=== PATIENT | female | born 2005 | race Caucasian/White ===

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

== ENCOUNTER 2024-10-16 09:35 | Outpatient (CLI) | payer BC, SELFPAY ==
--- NOTE | ~2024-10-16 | MR_ITS ---
MRI of the brain Clinical History: Headache Technique: Axial and sagittal T1-weighted images were acquired. These were followed by axial T2-weigh ana rosa, diffusion weighted, gradient, and FLAIR images. Following intravenous administration of 20 cc Mu ltiHance gadolinium, T1-weighted fat-sat imaging was performed in the axial and coronal planes. Findings: There is no abnormal signal in the brain parenchyma. No acute infarct, internal hemorrhage or mass lesion identified. Ventricles and subarachnoid spaces are unremarkable. Orbits are unremarkable. Paranasal sinuses and m astoid air cells are clear. Major intracranial flow voids are intact. Sagittal midline structures are intact. No abnormal postcontrast enhancement identified. IMPRESSION: Normal exam. Reviewed, dictated and finalized at location . NISTRATIVE SERVICES COORDINATOR IMPRESSION: Normal exam.
== END 2024-10-16 09:36 | disposition home or self-care (01) ==
PROVIDERS: PCP Family Medicine; Visit Provider Student in an Organized Health Care Education/Training Program
DX: G43.909 Migraine, unspecified, not intractable, without status migrainosus (principal)
CPT/HCPCS: 70553; A9577

== ENCOUNTER 2024-11-17 08:10 | Outpatient (CLI) | payer BC, SELFPAY ==
--- NOTE | ~2024-11-17 | NM_ITS ---
EXAM: NM gastric emptying study DATE: 11/17/2024 12:55 INDICATION: Nausea and vomiting TECHNIQUE: A gastric emptying study was performed using the methodology of Laverne MANDEL, et al. J Nucl Med 2007; 48:568-572. The patient was given a meal consisting of 2 scrambled eggs labeled with 1.029 mCi Tc-99m sulfur colloid, 2 slices of toast, two packages of jam, and approximately 120 mL of water . Simultaneous anterior and posterior 1-min images of the abdomen were obtained with the patient supi ne at multiple time points over a total period of 4 hours. The geometric mean of anterior and posteri or views was determined, and the percentage retention was calculated for each time point. COMPARISON: None. FINDINGS: Gastric retention of the radiotracer-labeled meal was 51%, 24%, and 5% at the 1-hour, 2-hour, and 4-h our time points, respectively. With this technique, apparent rapid gastric emptying is suggested by < 30% gastric retention at 1 hour. Delayed gastric emptying is defined by gastric retention of >90% at 1 hour, >60% retention at 2 hours, or >10% retention at 4 hours. IMPRESSION: 1. Normal gastric emptying. Reviewed, dictated and finalized at location B. EAD WORKER IMPRESSION: 1. Normal gastric emptying.
--- OUTSIDE RECORDS SUMMARY | 2024-11-24 14:33 | XMS_ITS | Encounter Summary ---
Author Organization [facility] Address [address] [place] [address] Care Team Providers Care Rn Progressive Care Unit Name Role Phone Mathew Garcia MD Primary Care Provider [phone] Vianey Cabral MD Unavailable [phone] Reason for Visit * Reason Onset Date Comments Update 09/26/2019 Encounter Details Date Type Department Care Team (Late st Contact Info) Description 09/26/2019 Telephone [facility] - Neurology [address] [place] [id number] Jinny May Update Social History Tobacco Use Types Packs/Day Years Used Date Smoking Tobacco: Passive Smo ke Exposure - Never Smoker Smokeless Tobacco: Never Alcohol Use Standard Drinks/Week Comments Not Asked 0 (1 standard drink = 0.6 oz pur e alcohol) AUDIT-C Answer Date Recorded Frequency of Alcohol Consumption Never 12/06/2020 Average Number of Drinks Not on file 021 Frequency of Binge Drinking Not on file 11/26 Sex and Gender Information Value Date Recorded Sex Assigned at Female 06/14/2021 11:35 AM CDT Gender Identity Female 06/14/2021 11:35 AM CDT Sexual Orientation Not on file COVID-19 Exposure Response Date Recorded In the last month, have you been in contact with someone who was confirmed or suspected to have Coronavirus / COVID-19? Unable to assess 12/06/2020 1:59 PM CAMPUS RECRUITING INTERN documented as of this encounter Functional Status Functional Status Response Date of Assess ment Is person deaf or have serious hearing difficult y? No 10/06/2016 Is person blind or have serious difficulty seein g? No 10/06/2016 Does person have serious dif ficulty walking/climbing stairs? No 10/06/2016 Does person have difficulty dressing/bathing? No 10/06/2016 Does person have difficulty doing errands alone? No 10/06/2016 Cognitive Status Response Date of Assessm ent Does person have difficulty concentrating/remembering/making decisions? No 10/06/2016 documented as of this encounter Miscellaneous Notes * Telephone Encounter - Anayeli Poole RN - 10/07/2019 11:51 AM CST Both parents called to confirm upcoming appt for 10/16/19, closing encounter. US RECRUITING INTERN * Telephone Encounter - Anayeli Poole RN - 10/07/2019 11:15 AM CST Per office coordinators, multiple attempts made to confirm new patient appt with mother, no answer and no return calls. Of note, mother request return call to father Eze for scheduling as she has trouble answering her phone during the day. RN has also called mother at [phone] and father, Eze, at [phone] to confirm new patient appt for 10/16/19 at 1100, advised that if call not returned to confirm this appt will need to remove for the visit. US RECRUITING INTERN * Telephone Encounter - Anayeli Poole RN - 10/03/2019 11:51 AM CST Mother calling to follow up from ED visit 10/01/19. States this is her 16th day of migraine, been to ED twice for this. States received IV cocktail, but then this is temporary, missed school all week and barely able to move these are so debilitating. States she does looks a bit better, but still incapacitated, also c/o of numbness in arms and face,CT scan normal. Advised there is not a lot to be advised over the phone at this time and will need to call PCP for recs. Appt not until 12/10/2019, but will look into something sooner and get back for appt date and time, mother agreed. Mother telephone [phone] or Father (Eze) at [phone]. Of note, sooner appt available with Dr. Álvarez on 10/16/19, will hold and forward to DAJA to set this up. US RECRUITING INTERN * Telephone Encounter - Jinny May - 09/26/2019 3:30 PM CDT Received records from Dr.Jamil Garcia's office for Namita to be seen for Migraines . Called family and lvm to call and schedule a new patient appointment. documented in this encounter Plan of Treatment Not on file documented as of this encounter Visit Diagnoses Not on filedocumented in this encounter Care Teams Rn Progressive Care Unit Relationship Specialty Start Date End Date Mathew Garcia MD [address] [place] [address] PCP - General Pediatrics 02/29/16 05/06/24 Vianey Cabral MD [facility] [place] [address] Pediatric Gastroenterology 12/06/20 documented as of this encounter
--- OUTSIDE RECORDS SUMMARY | 2024-11-24 14:33 | XMS_ITS | Encounter Summary ---
Author Organization [facility] Address [address] [facility] [place] [address] Care Team Providers Care Faculty Criminal Justice Name Role Phone Mathew Garcia MD Primary Care Provider [phone] Reason for Visit * Reason Comments Headache continues with daily headaches Encounter Details Date Type Department Care Team (Latest Contact Info) Description 10/17/2016 2:45 PM SCAFFOLD WORKER - 10/17/2016 11:59 PM SCAFFOLD WORKER Hospital Encounter [facility] Pediatric[facility] - Neurology [address] [facility] [place] [address] Nico Méndez MD [address] [place] [id number] [place] [address] Discharge Disposition: Home or Self Care Social History Tobacco Use Types Packs/Day Years Used Date Smoking Tobacco: Never Alcohol Use Standard Drinks/Week Comments Not Asked 0 (1 standard drink = 0.6 oz pur e alcohol) Sex and Gender Information Value Date Recorded Sex Assigned at Female 06/14/2021 11:35 AM CDT Gender Identity Female 06/14/2021 11:35 AM CDT Sexual Orientation Not on file documented as of this encounter Last Filed Vital Signs Vital Sign Reading Time Taken Comments Blood Pressure 122/70 10/17/2016 3:02 PM SCAFFOLD WORKER Pulse - - Temperature - - Respiratory Rate - - Oxygen Saturation - - Inhaled Oxygen Concentration - - Weight 84.7 kg (186 lb 11.7 oz) 10/17/2016 3:02 PM SCAFFOLD WORKER Height 168.2 cm (5' 6.22 ) 10/17/2016 3:02 PM CS T Body Mass Index 29.94 10/17/2016 3:02 PM SCAFFOLD WORKER Body Mass Index Percentile 97.29% 10/17/2016 3:0 2 PM SCAFFOLD WORKER Growth Chart: [facility] (Girls, 2- 20 Years) documented in this encounter Functional Status Functional Status Response [...] No 10/06/2016 documented as of this encounter Medications at Time of Discharge Medication Sig Dispensed Refills Start Date End Date melatonin 5 MG tablet Take 10 mg by mouth at bedtime Multiple Vitamin (MULTI VITAMIN DAILY PO) acetaminophen (TYLENOL) 160 MG/5ML solution Take 20.3 mL by mouth every 4 hours as needed for Fever or Pain 473 mL 10/06/2016 10/16/2019 HYDROcodone-acetaminoph en 7.5-325 MG/15ML solution Take 5 mL by mouth every 4 hours as needed for Pain 473 mL 10/06/2016 09/24/2017 ibuprofen (ADVIL; MOTRIN) 100 MG/5ML suspension Take 15 mL by mouth every 6 hours as needed for Pain or Fever May start using ibuprofen (ADVIL/MOTRIN) 3 days after surgery. 473 mL 10/09/2016 10/01/2019 documented as of this encounter Progress Notes * Nico Méndez MD - 10/17/2016 11:59 PM CST [address] [address] DEPARTMENT OF NEUROLOGY NAME: NAMITA REYES DOB: 2005 UNIT #: [id number] [facility] #: [id number] DATE SEEN: 10/17/2016 Dr. Garcia: I saw Namita Reyes in followup in Neurology Clinic at the [facility] on October 17. As you will recall, she is a 13-1/4-year-old girl with a history of migraine headache without aura and the development of chronic daily headache. She has recently had a tonsillectomy and adenoidectomy and she had a nasopharyngeal cyst as well, which was removed about 11-12 days before our visit. She had some pharyngeal pain and scarring that is noted over the area of the previous cyst. Her blood pressurewas marginal at 122/70 at our visit. She continues to complain of daily bitemporal pain of 6 or 7 on a scale of intensity. It is described as pounding in quality. The patient was taking topiramate 50mg at bedtime in March after we prescribed it. She took it for about a month and discontinued it because she felt it did not work. The patient has had no recent illnesses since her surgery. She would prefer not to use a tricyclic agent because of her concerns about obesity. She is ready at the 99th percentile for weight and at 92nd percentile for height with a BMI approaching the 98th percentile. PHYSICAL EXAMINATION: Her exam revealed fluent topical speech and she did not appear distressed. 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 Her eye movements were complete. Facies were symmetrical. Tongue was midline and she had normal hearing bilaterally. General exam of the skull and neck demonstrated some slight bitemporalis muscle tenderness, but a supple neck. She had a normal cardiac exam and no bruits in the neck. Her motor exam reveals normal power and tone without drift. Deep tendon reflexes were equal throughout and her gait and tandem walk were normal. 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 RECOMMENDATIONS: I have suggested firstly that we try some simple xtyr-[id number] basic measures in addition to some lifestyle changes. Oral magnesium and alpha lipoic acid may be reasonable non medicinal alternative therapies firstly. If there is no impact with these agents, then I believe Neurontin might be a reasonable medication (i.e. gabapentin). I suggested a return visit in about 4 months' time and the family will contact us if the above simple measures are not effective. Questions can be directed to meat the Department of Neurology, [facility]. Dictated By: NICO MÉNDEZ MD JENNI/Glenis JOB ID: [id number] cc: Mathew Garcia M.D. DEPARTMENT OF NEUROLOGY FOLD WORKER * Nico Méndez MD - 10/17/2016 3:45 PM CST Images from the original note were not included. See dictated note to PD. Impression [facility] unresponsive to topiramate. Will try Mg and alpha lipoic acid before a trial of neurontin as pt has weight issues and wants to keep it off. F/u 4 months. jenni FOLD WORKER documented in this encounter Plan of Treatment Not on file documented as of this encounter Visit Diagnoses Diagnosis Chronic daily headache Headache Intractable migraine without aura and without status migrainosus Migraine without aura, with intractable migraine, so stated, without mention of status migrainosus documented in this encounter Care Teams Faculty Criminal Justice Relationship Specialty Start Date End Date Mathew Garcia MD [address] [place] [id number] PCP - General Pediatrics 02/29/16 05/06/24 documented as of this encounter
--- OUTSIDE RECORDS SUMMARY | 2024-11-24 14:33 | XMS_ITS | Encounter Summary ---
Author Organization [facility] Address [address] [place] [address] Care Team Providers Care Dietary Cook Name Role Phone Mathew Garcia MD Primary Care Provider [phone] Reason for Visit * Reason Onset Date Comments Results 10/10/2016 Encounter Details Date Type Department Care Team (Late st Contact Info) Description 10/10/2016 Telephone [facility] Pediatric[facility] - ENT [address] [place] [address] [place] [address] [facility] [address] [place] [address] Results Social History Tobacco Use Types Packs/Day Years Used Date Smoking Tobacco: Never Alcohol Use Standard Drinks/Week Comments Not Asked 0 (1 standard drink = 0.6 oz pur e alcohol) Sex and Gender Information Value Date Recorded Sex Assigned at Female 06/14/2021 11:35 AM CDT Gender Identity Female 06/14/2021 11:35 AM CDT Sexual Orientation Not on file documented as of this encounter Functional Status [...] encounter Miscellaneous Notes * Telephone Encounter - Orion Domingo MD - 10/10/2016 9:18 PM CST Pathology report is c/w an inclusion cyst of the nasopharynx. Namita has been having post-op pain but otherwise doing well. She will follow up prn continuing concerns. ING PANTOGRAPH MACHINE OPERATOR documented in this encounter Plan of Treatment Not on file documented as of this encounter Visit Diagnoses Not on filedocumented in this encounter Care Teams Dietary Cook Relationship Specialty Start Date End Date Mathew Garcia MD [address] [place] [address] PCP - General Pediatrics 02/29/16 05/06/24 documented as of this encounter
--- OUTSIDE RECORDS SUMMARY | 2024-11-24 14:33 | XMS_ITS | Encounter Summary ---
Author Organization [facility] Address [address] [facility] [place] [address] Care Team Providers Care Communication Center Coordinator Name Role Phone Mathew Garcia MD Primary Care Provider [phone] Vianey Cabral MD Unavailable [phone] Reason for Referral * Procedure (Routine) - Closed Specialty Diagnoses / Procedures Referred By Mercedez perez Referred To Contact Gastroenterology Diagnoses Abdominal pain, generalized Procedures EGD Vianey Cabral MD [address] [place] [address] Referral ID Status Reason Start Date Expiration Date Visits Re quested Visits Authorized [id number] Closed 02/25/2021 02/25/2022 1 1 Reason for Visit * Auth/Cert Specialty Diagnoses / Procedures Referred By Mercedez perez Referred To Contact Procedures ESOPHAGOGASTRODUODENOSCOPY (EGD) BIOPSY Referral ID Status Reason Start Date Expiration Date Visits Re quested Visits Authorized [id number] 1 1 Encounter Details Date Type Department Care Team (Latest Contact Info) Description 04/22/2021 7:18 AM CDT - 04/22/2021 9:33 AM CDT Hospital Encounter [facility] - Endoscopy [address] [place] [id number] Vianey Cabral MD [address] [place] [address] Surgery General Discharge Disposition: Home or Self Care Social History Tobacco Use Types Packs/Day Years Used Date Smoking Tobacco: Passive Smo ke Exposure - Never Smoker Smokeless Tobacco: Never Alcohol Use Standard Drinks/Week Comments Never 0 (1 standard drink = 0.6 oz [...] Sign Reading Time Taken Comments Blood Pressure 126/82 04/22/2021 9:05 AM CDT Pulse 93 04/22/2021 9:05 AM CDT Temperature 36.7 ??C (98.1 ??F) 04/22/2021 8:41 AM CD T Respiratory Rate 14 04/22/2021 9:05 AM CDT Oxygen Saturation 96% 04/22/2021 9:05 AM CDT Inhaled Oxygen Concentration 100% 04/22/2021 8 :41 AM CDT Weight 89.8 kg (197 lb 15.6 oz) 04/22/2021 8:00 AM CDT Height 167 cm (5' 5.75 ) 04/22/2021 8:00 AM CDT Body Mass Index 32.2 04/22/2021 8:00 AM CDT Body Mass Index Percentile 96.13% 04/22/2021 8:0 0 AM CDT Growth Chart: [facility] (Girls, 2- 20 Years) documented in this encounter Functional Status Functional Status Response Date of Assess ment Is person deaf or have serious hearing difficult y? No 04/22/2021 Is person blind or have serious difficulty seein g? No 04/22/2021 Does person have serious dif ficulty walking/climbing stairs? No 04/22/2021 Does person have difficulty dressing/bathing? No 04/22/2021 Does person have difficulty doing errands alone? Yes 04/22/2021 Cognitive Status Response Date of Assessm ent Does person have difficulty concentrating/remembering/making decisions? No 04/22/2021 documented as of this encounter Discharge Summaries * Vianey Cabral MD - 04/22/2021 8:43 AM CDT Images from the original note were not included. SAME DAY SURGERY DISCHARGE SUMMARY Patient ID: Namita Reyes [id number] 15 year old 2005 Discharge Date: 04/22/21 Discharge Diagnoses: 1. Preop testing 2. Abdominal pain, generalized 3. Abdominal pain, unspecified abdominal location Discharge Condition: Stable Discharge Medication: Please see Discharge Instructions for a complete list of medications. Discharge Procedure Orders Procedure information Namita had the following procedure performed: Esophagogastro duodenoscopy Order Specific Question Answer Comments Your discharge diagnosis is: Abdominal pain [3071219] Why you were hospitalized Order Specific Question Answer Comments Your discharge diagnosis is: Abdominal pain [3728611] Recovering after your Uppder Endoscopy -- Micheles throat will probably be slightly sore today. This should go away within the next 24 hours. Use throat lozenges or cough drops to help ease the discomfort. -- Namita may notice small amounts of blood if she had polyps removed or tissue samples taken for biopsy. Diet instructions Start light diet today (i.e soup, Jell-O, toast). If no nausea or vomiting, may resume normal diet.In case of nausea or vomiting, reduce diet to fluids low in acid (water, sports drinks, white sodas). As you are able to tolerate the fluids, gradually increase your diet. Biopsy Results Please allow 10-14 days for biopsy results to be finalized. Follow up with provider Order Specific Question Answer Comments Follow Up Instructions: Call GI office for biopsy results in 7-10 days Activity as tolerated Rest today, and increase activity level tomorrow as tolerated. Vianey Cabral MD 04/22/2021 8:43 AM documented in this encounter Medications at Time of Discharge Medication Sig Dispensed Refills Start Date End Date docusate sodium (COLACE) 100 MG capsuleIndications:Ab gallardoinal pain, generalized Take 1 capsule by mouth 2 times daily as needed for Constipation 60 capsule 3 12/06/2020 ibuprofen (MOTRIN) 200 MG tablet Take 800 mg by mouth every 6 hours as needed for Pain LORYNA 3-0.02 MG tablet TK 1 T PO QD CONTINUOUSLY 0 07/26/2019 melatonin 5 MG tablet Take 10 mg by mouth at bedtime Multiple Vitamin (MULTI VITAMIN DAILY PO) omeprazole (PRILOSEC) 40 MG capsule Take 1 (one) capsule by mouth once daily 30 capsule 3 03/10/2021 ondansetron (ZOFRAN) 4 MG tablet Take 1 (one) tablet by mouth every 6 hours as needed for Nausea/Vomiting 30 tablet 3 03/10/2021 venlafaxine XR 24hr (EFFEXOR XR) 75 MG capsule 150 mg 01/21/2020 nortriptyline (PAMELOR) 10 MG capsule Take 1 capsule by mouth at bedtime 30 capsule 5 12/06/2020 06/23/2021 documented as of this encounter H&P Notes * Vianey Cabral MD - 04/22/2021 8:24 AM CDT Surgical History and Physical Today's Date: 04/22/2021 Namita Reyes 15 year old female Date of Service: 04/22/21 Planned Procedure: upper endoscopy Indication for Procedure: abdominal pain History of Present Illness 15 y/o F with recurrent abdominal pain despite PPI, depresssion Medications Prior to Admission Medication Sig Dispense Refill ??? docusate sodium (COLACE) 100 MG capsule Take 1 capsule by mouth 2 times daily as needed for Constipation 60 capsule 3 ??? ibuprofen (MOTRIN) 200 MG tablet Take 800 mg by mouth every 6 hours as needed for Pain ??? LORYNA 3-0.02 MG tablet TK 1 T PO QD CONTINUOUSLY 0 ??? melatonin 5 MG tablet Take 10 mg by mouth at bedtime (Patient not taking: Reported on 04/22/2021) ??? Multiple Vitamin (MULTI VITAMIN DAILY PO) ??? nortriptyline (PAMELOR) 10 MG capsule Take 1 capsule by mouth at bedtime 30 capsule 5 ??? omeprazole (PRILOSEC) 40 MG capsule Take 1 (one) capsule by mouth once daily 30 capsule 3 ??? ondansetron (ZOFRAN) 4 MG tablet Take 1 (one) tablet by mouth every 6 hours as needed for Nausea/Vomiting 30 tablet 3 ??? venlafaxine XR 24hr (EFFEXOR XR) 75 MG capsule 150 mg No Known Allergies Review of Systems Pertinent items are noted in HPI Exam Vitals: 04/22/21 0800 BP: 136/94 Pulse: 92 Resp: 18 Temp: 99.4 ??F SpO2: 96% Weight: 89.8 kg (197 lb 15.6 oz) Height: 1.67 m (5' 5.75 ) General appearance: alert, cooperative, no distress Lungs: breathing not labored Heart:precordium quiet Abdomen: not distended Extremities: no clubbing, cyanosis or edema, no edema Other pertinent exam: none Data None new Assessment and Plan Risks, benefits and alternatives discussed with the patient, questions answered. Plan to perform above noted procedure. Vianey Cabral MD documented in this encounter Nursing Notes * Nallely Benavides RN - 04/21/2021 9:44 AM CDT Spoke with mother to move up to earlier appt. She is agreeable. * Nallely Benavides RN - 04/14/2021 11:29 AM CDT Spoke with mother regarding procedure date, time, covid test and isolating after. She verbalized understanding. [facility] appt made for Sunday. Order placed in computer. * Nallely Benavides RN - 04/14/2021 8:51 AM CDT Left message on 2 phone numbers regarding time change and covid testing. Left my number for return call. documented in this encounter Plan of Treatment Not on file documented as of this encounter Procedures Procedure Name Priority Date/Time Associated Diagnosis Comments EGD Routine 04/22/2021 11:08 AM CDT Abdominal pain, generalized HELICOBACTER PYLORI UREASE (STL) STAT 04/22/2021 8:36 AM CDT Abdominal pain, generalized PATHOLOGY TISSUE EXAM (STL) STAT 04/22/2021 8:34 AM CDT Abdominal pain, unspecified abdominal location OH EGD FLEX TRANSORAL W BX SNGL OR MULT 04/22/2021 8:18 AM CDT HCG URINE QUALITATIVE - POCT (IP) INTERFACED Routine 04/22/2021 7:59 AM CDT HCG URINE QUAL POCT NOTIFICATION STAT 04/21/2021 6:00 PM CDT Preop testing documented in this encounter Results * EGD (04/22/2021 11:08 AM CDT) Report Endoscopy POC _ Patient Name: Namita Reyes ?Procedure Date: 04/22/2021 11:08 AM ?Date of : 2005 Admit Type: Outpatient ?Age: 15 Gender: Female ?Race: White Attending MD: Vianey Cabral , ?Order #: [id number] _ Procedure: ? Upper GI endoscopy Indications: ? Generalized abdominal pain Providers: ? Vianey Chu MD: ?Mathew Garcia MD Medicines: ? General Anesthesia Complications: ? No immediate complications. _ Procedure: ? After obtaining informed consent, the endoscope was ? passed under direct vision. Throughout the procedure, ? the patient's blood pressure, pulse, and oxygen ? saturations were monitored continuously. The Endoscope ? was introduced through the mouth, and advanced to the ? second part of duodenum. The upper GI endoscopy was ? accomplished without difficulty. The patient tolerated ? the procedure well. Findings: ? The examined esophagus was normal. Biopsies were taken with a cold ? forceps for histology. Estimated blood loss was minimal. ? Patchy mildly erythematous mucosa without bleeding was found in the ? gastric body and in the gastric antrum. Biopsies were taken with a cold ? forceps for Helicobacter pylori testing using a rapid urease test. ? Biopsies were taken with a cold forceps for histology. Estimated blood ? loss was minimal. ? No gross lesions were noted in the entire examined duodenum. Biopsies ? were taken with a cold forceps for histology. Estimated blood loss was ? minimal. Impression: ?- Normal esophagus. Biopsied. ? - Miild Erythematous mucosa in the gastric body and ? antrum. Biopsied. ? - No gross lesions in the entire examined duodenum. ? Biopsied. Recommendation: ?- Discharge patient to home (with parent). ? - Await pathology results. ? Procedure Code(s): ? --- Professional --- ? 95122, Esophagogastrodu odenoscopy, flexible, transoral; with biopsy, ? single or multiple ? --- Technical --- ? 21398, Esophagogastrodu odenoscopy, flexible, transoral; with biopsy, ? single or multiple Diagnosis Code(s): ? --- Professional --- ? K31.89, Other diseases of stomach and duodenum ? R10.84, Generalized abdominal pain ? --- Technical --- ? K31.89, Other diseases of stomach and duodenum ? R10.84, Generalized abdominal pain CPT copyright 2019 [employer]. All rights reserved. The codes documented in this report are preliminary and upon rim fire charger operator review may be revised to meet current compliance requirements. Dr. Vianey Cabral Vianey Cabral, 04/22/2021 8:43:25 AM This report has been signed electronically. Number of Addenda: 0 Note Initiated On: 04/21/2021 11:08 AM Procedure Date: ? 04/22/2021 11:08:00 AM ? This report has been signed electronically. [facility] 04/22/2021 11:0 8 AM CDT Vianey Cabral MD GI PROCEDURE ORDERAB LES Performing Organization Address City/[facility]/ZIP Co de Phone Number [facility] [address] [place] [address] * HELICOBACTER PYLORI UREASE (STL) (04/22/2021 8:36 AM CDT) Helicobacter pylori Urease Initial Negative Negative 04/23/2021 11:15 AM CDT [facility] Helicobacter pylori Urease Final Negative Negative 04/23/2021 11:15 AM CDT [facility] Microbiology GASTRIC BIOPSY SPECIMEN / Unknown Collection / Unknown 04/22/2021 8:36 AM CDT 04/22/2021 8:53 AM CDT Vianey Cabral MD LAB - MICROBIOLOGY O RDERABLES Performing Organization Address City/[facility]/ZIP Co de Phone Number [facility] [address] [place] [address], [facility] [phone] * PATHOLOGY TISSUE EXAM (STL) (04/22/2021 8:34 AM CDT) Case Report Surgical Pathology Report ? Case: [id number] ? Authorizing Provider: ??Vianey Cabral MD ?Collected: ? 04/22/2021 08:34 AM ? Ordering Location: ? [facility] ?Received: ?04/22/2021 09:44 AM ? Pathologist: ? Bisi Dial MD ? Specimens: ?? A) - Duodenal Biopsy ? B) - Stomach Biopsy ? C) - Esophageal Biopsy, distal ? D) - Esophageal Biopsy, mid ? 04/26/2021 3:59 PM [facility] Final Diagnosis Small intestine, duodenum, biopsy (A): - No histopathologic abnormality - Intact villous and crypt architecture without increased intraepithelial lymphocytes Stomach, biopsy (B): - Mild chronic gastritis - No active inflammation or H. pylori organisms (H&E examination) Esophagus, distal, biopsy (C): - Mild esophagitis - No increase in intraepithelial eosinophils Esophagus, mid, biopsy (D): - No histopathologic abnormality - No increase in intraepithelial eosinophils 04/26/2021 3:59 PM [facility] Clinical History The patient is a 15-year-old girl with abdominal pain who underwent upper endoscopy. The endoscopic finding was patchy gastric erythema. 04/26/2021 3:59 PM [facility] Gross Description The specimens are received fixed in formalin in four containers for gross and microscopic examination. All containers are labeled with the patient's name, Namita Reyes. Specimen A, duodenal biopsy, consists of two soft, yellow-edmonds tissue fragments, 3 mm and 4 mm in greatest dimension. The specimen is submitted in toto as A1. Specimen B, stomach biopsy, consists of two 4 mm soft, yellow-edmonds tissue fragments, submitted in toto as B1. Specimen C, distal esophageal biopsy, consists of two 3 mm soft, haider-pink tissue fragments, submitted in toto as C1. Specimen D, mid esophageal biopsy, consists of two soft, haider-pink tissue fragments, 2 mm and 4 mm in greatest dimension. The specimen is submitted in toto as D1. (CT/tc) 04/26/2021 3:59 PM [facility] Microscopic Description 12 H&E slides examined. Microscopic examination substantiates the final diagnosis. 04/26/2021 3:59 PM [facility] Disclaimer The performance characteristics of all immunohistochemical and indirect immunofluorescence stains (if any) cited in this report were determined by the [facility] of [facility] in compliance with Clinical Laboratory Improvement Amendments of 1988 (CLIA'88) regulations. Some of these tests rely on the use of analyte-specific reagents and are subject to specific labeling requirements by the U.S. Food and Drug Administration (FDA). Such tests were developed by the [facility] of [facility] and have not been cleared or approved by the FDA. The FDA has determined that such clearance or approval is not necessary. These tests are used for clinical purposes and should not be regarded as investigational or for research. This case has been personally reviewed and interpreted by the attending (teaching) pathologist. The interpretation of this case is performed by [facility] at [facility], [address] [place] [id number]. 04/26/2021 3:59 PM CDT [facility] Embedded Images 04/26/2021 3:59 PM CDT [facility] Pathology/Cytology ESOPHAGEAL BIOPSY SPECIMEN / Unknown 04/22/2021 8:34 AM CDT 04/22/2021 9:44 AM CDT Miscellaneous samples (specimen) BIOPSY OF STOMACH / Unknown 04/22/2021 8:34 AM CDT 04/22/2021 9:44 AM CDT Miscellaneous samples (specimen) ESOPHAGEAL BIOPSY SPECIMEN / Unknown 04/22/2021 8:34 AM CDT 04/22/2021 9:44 AM CDT Miscellaneous samples (specimen) ESOPHAGEAL BIOPSY SPECIMEN / Unknown 04/22/2021 8:34 AM CDT 04/22/2021 9:44 AM CDT Vianey Cabral MD LAB - PATHOLOGY/CYTO LOGY ORDERABLES Performing Organization Address City/State/[facility] Co de Phone Number [facility] [address] [place] [address] * HCG URINE QUALITATIVE - POCT (IP) INTERFACED (04/22/2021 7:59 AM CDT) HCG Qual Urine Negative Negative 04/22/2021 8:09 AM CDT [facility] Urine URINE / Unknown 04/22/2021 7 :59 AM CDT 04/22/2021 8:09 AM CDT Vianey Cabral MD LAB - POINT OF CARE ORDERABLES Performing Organization Address City/[facility]/ZIP Co de Phone Number [facility] [address] [place] [address] * HCG URINE QUAL POCT NOTIFICATION (04/21/2021 6:00 PM CDT) Comment Notification Label Only - See Separate Report 04/22/2021 8:30 AM CDT [facility] Urine URINE / Unknown 04/21/2021 6 :00 PM CDT 04/22/2021 7:19 AM CDT Vianey Cabral MD LAB - URINALYSIS ORD ERABLES Performing Organization Address City/[facility] Co de Phone Number [facility] [address] [place] [address] documented in this encounter Visit Diagnoses Diagnosis Preop testing- Primary Preoperative examination, unspecified Abdominal pain, generalized Abdominal pain, unspecified abdominal location documented in this encounter Administered Medications Inactive Administered Medications - up to 3 most recent administrations Medication Order MAR Action Action Date Dose Rate Site isolyte-S pH 7.4 infusion at 100 mL/hr, Intravenous, POST-OP CONTINUOUS, Starting on Sun04/22/21 at 0930, Until Sun04/22/21 at 1033, PACU Current Rate 04/22/2021 8:41 AM CDT 100 m L/hr documented in this encounter Active and Recently Administered Medications Times are shown in CDT. Continuous Medication Order 04/20/2021 04/21/2021 04/22/2021 isolyte-S pH 7.4 infusion at 100 mL/hr, Intravenous, POST-OP CONTINUOUS, Starting on Sun04/22/21 at 0930, Until Sun04/22/21 at 1033, PACU 0841 (Current Rate - Provider: Samantha Smith, MELANY)0915 (Stopped - Provider: Samantha Smith, MELANY) documented in this encounter Care Teams Communication Center Coordinator Relationship Specialty Start Date End Date Mathew Garcia MD [address] [place] [address] PCP - General Pediatrics 02/29/16 05/06/24 Vianey Cabral MD [address] [place] [address] Pediatric Gastroenterology 12/06/20 documented as of this encounter
--- OUTSIDE RECORDS SUMMARY | 2024-11-24 14:33 | XMS_ITS | Referral Summary ---
Author Organization [facility] Address [address] [place] [address] Care Team Providers Care Patient Access Manager Name Role Phone Vianey Cabral MD Unavailable [phone] Source Comments [facility],non-owned Affiliates and Associated Physician Practices is amultiple site organization consisting of ambulatory clinics and hospital sitesin [place], [place], [place] and [place]. This disclosure is being madepursuant to the Care Everywhere program and may not contain all information available regarding this patient. Last updated 18.[facility] Allergies No known active allergies Medications * Be aware that medications may not be up to date on this document. Alwaysverify current medications with the patient. Medication Sig Dispensed Refills Start Date End Date Status Multiple Vitamin (MULTI VITAMIN DAILY PO) Active melatonin 5 MG tablet Take 10 mg by mouth at bedtime Active LORYNA 3-0.02 MG tablet TK 1 T PO QD CONTINUOUSLY 0 07/26/2019 Active venlafaxine XR 24hr (EFFEXOR XR) 75 MG capsule 150 mg 01/21/2020 Active ibuprofen (MOTRIN) 200 MG tablet Take 800 mg by mouth every 6 hours as needed for Pain Active docusate sodium (COLACE) 100 MG capsuleIndications :Abdominal pain, generalized Take 1 capsule by mouth 2 times daily as needed for Constipation 60 capsule 3 12/06/2020 Active omeprazole (PRILOSEC) 40 MG capsule Take 1 (one) capsule by mouth once daily 30 capsule 3 03/10/2021 Active ondansetron (ZOFRAN) 4 MG tablet Take 1 (one) tablet by mouth every 6 hours as needed for Nausea/Vomiting 30 tablet 3 03/10/2021 Active Active Problems Problem Noted Date Diagnosed Date Migraine 03/27/2016 Chronic daily headache Assessment & Plan (06/23/2021 5:38 PM CDT): Chronic daily headaches have much improved and she is doing well. Continue with lifestyle modification (diet, hydration, sleep regimen, physical activity, limiting screen time, addressing mood/stressors etc). Stop Nortriptyline. Call for any worsening or change in headaches or other neurological concerns. Can follow up with Neurology as needed - can also transition to adult neurology if needed after she turns 16 y next month. Assessment & Plan (12/06/2020 4:27 PM UNDERWRITING SUPPORT SPECIALIST): Chronic daily headaches have been less intense since restarting nortriptyline and also reduction in school stressors (since she has graduated). No changes to medication at this time form a headache standpoint. 1. Keep headache diary 2. Maintain active lifestyle - encourage regular physical activity. Limit screen time. 3. Eat healthy diet, and do not skip meals 4. Drink plenty of water, and avoid caffeine regularly. 5. Sleep: 1. Maintain good sleep routine. 2. Avoid distractions at bedtime such as TV, computer. 3. Get at least 8-10 hours of sleep nightly 6. Do not use pain medication (such as Tylenol, Ibuprofen) more than 2-3 times/week in order to avoid medication overuse headaches 7. Use Ibuprofen or Aleve as needed only for moderate-sever headache. 8. Continue with nortriptyline 10 mg at bedtime. Take regularly and as prescribed. If GI needs to increase the medication for abdominal symptoms/IBS, then they can discuss changes to the dosing. 9. Call for any interim concerns and updates Assessment & Plan (06/03/2020 2:40 PM CDT): Headaches are much improved form prior - though she may have some headaches several days a week, they are much milder and she does not need to take additional pain med's. Also headaches have improved with improvement in her mood and med changes related to that. May have more headaches with intercurrent illness at this time. Unclear if skin changes related to sun exposure are related to nortriptyline - continue to observe after stopping it. Plan as below. 1. Keep headache diary 2. Maintain active lifestyle - encourage regular physical activity and limiting screen time. 3. Eat healthy diet, and do not skip meals 4. Drink plenty of water, and avoid caffeine regularly. Can improve water intake. 5. Sleep: 1. Maintain good sleep routine. 2. Avoid distractions at bedtime such as TV, computer. 3. Get at least 8-10 hours of sleep nightly 6. Do not use pain medication (such as Tylenol, Ibuprofen) more than 2-3 times/week in order to avoid medication overuse headaches 7. Use OTC Aleve/Naproxen (220 mg) as needed only for intense headaches. 8. Continue seeing the counselor and follow up with psychiatrist. 9. Stop taking nortriptyline 10 mg at bedtime. 10. If headaches tend to increase, continue to follow lifestyle modifications as listed above and then can reconsider restarting nortriptyline if needed. 11. Call for interim concerns or updates. Recurrent acute tonsillitis Social History Tobacco Use Types Packs/Day Years [...] AM CDT Sexual Orientation Not on file Last Filed Vital Signs Vital Sign Reading Time Taken Comments Blood Pressure 126/82 04/22/2021 9:05 AM CDT Pulse 93 04/22/2021 9:05 AM CDT Temperature 36.7 ??C (98.1 ??F) 04/22/2021 8:41 AM CD T Respiratory Rate 14 04/22/2021 9:05 AM CDT Oxygen Saturation 96% 04/22/2021 9:05 AM CDT Inhaled Oxygen Concentration 100% 04/22/2021 8 :41 AM CDT Weight 89.4 kg (197 lb) 06/14/2021 10:47 AM CDT Height 167 cm (5' 5.75 ) 04/22/2021 8:00 AM CDT Body Mass Index - - Functional Status Functional Status Response Date of [...] person have difficulty concentrating/remembering/making decisions? No 04/22/2021 Plan of Treatment Not on file Care Teams Patient Access Manager Relationship Specialty Start Date End Date Vianey Cabral MD [address] [place] [address] Pediatric Gastroenterology 12/06/20
--- OUTSIDE RECORDS SUMMARY | 2024-11-24 14:33 | XMS_ITS | Encounter Summary ---
Author Organization [facility] Address [address] [place] [address] Care Team Providers Care Keeler Polygraph Operator Name Role Phone Mathew Garcia MD Primary Care Provider [phone] Vianey Cabral MD Unavailable [phone] Encounter Details Date Type Department Care Team (Late st Contact Info) Description 04/20/2021 Orders Only [facility] Pediatrics [address] [place] [address] Jeimy Norton RN Pre-op testing Social History Tobacco Use Types Packs/Day Years [...] No 10/06/2016 documented as of this encounter Plan of Treatment Not on file documented as of this encounter Visit Diagnoses Diagnosis Pre-op testing- Primary Preoperative examination, unspecified documented in this encounter Care Teams Keeler Polygraph Operator Relationship Specialty Start Date End Date Mathew Garcia MD [address] [place] [id number] PCP - General Pediatrics 02/29/16 05/06/24 Vianey Cabral MD [address] [place] [address] Pediatric Gastroenterology 12/06/20 documented as of this encounter
--- OUTSIDE RECORDS SUMMARY | 2024-11-24 14:33 | XMS_ITS | Clinical Summary ---
Author Organization [facility] Address [address] [place] [address] Care Team Providers Care Information Assurance Specialist Name Role Phone Vianey Cabral MD Unavailable [phone] Source Comments [facility],non-owned Affiliates and Associated Physician Practices is amultiple site organization consisting of ambulatory clinics and hospital sitesin [place], [place], [place] and [place]. This disclosure is being madepursuant to the Care Everywhere program and may not contain all information available regarding this patient. Last updated 18.[facility] Allergies No known active allergies Medications * [...] month. 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): Chronic daily headaches have been less intense [...] AM CDT Body Mass Index - - Plan of Treatment Health Maintenance Due Date Last Done Comments PAP SMEAR 2003 HIV SCREENING 2018 HPV VACCINE (1 - 3-dose series) 2018 CHLAMYDIA/GONORRHEA SCREENING 2019 HEPATITIS C SCREENING 07/01/2021 DTAP/TDAP/TD VACCINES (1 - Tdap) 2022 HEPATITIS B VACCINE (1 of 3 - 19+ 3-dose series) 2022 DEPRESSION SCREENING 11/26/2023 COVID-19 VACCINE (1 - 2023-2 5 season) 2024 INFLUENZA VACCINE (#1) 2024 ZOSTER VACCINE (1 of 2) 2053 HIB VACCINE Aged Out No longer eligi ble based on patient's age to complete this topic MENINGOCOCCAL VACCINE Aged Out No sorin mariela eligible based on patient's age to complete this topic PNEUMOCOCCAL VACCINE Aged Out No long er eligible based on patient's age to complete this topic Care Teams Information Assurance Specialist Relationship Specialty Start Date End Date Vianey Cabral MD [address] [place] [address] Pediatric Gastroenterology 12/06/20
--- OUTSIDE RECORDS SUMMARY | 2024-11-24 14:33 | XMS_ITS | Encounter Summary ---
Author Organization [facility] Address [address] [place] [address] Care Team Providers Care High Reach Operator Name Role Phone Mathew Garcia MD Primary Care Provider [phone] Reason for Visit * Reason Onset Date Comments Question 08/31/2020 Encounter Details Date Type Department Care Team (Late st Contact Info) Description 08/31/2020 Telephone [facility] Pediatrics - Neurology [address] [place] [id number] Valencia Álvarez MD [address] [place] [phone] Question Social History Tobacco Use Types Packs/Day Years Used Date Smoking Tobacco: Passive Smo ke Exposure - Never Smoker Smokeless Tobacco: Never Alcohol Use Standard Drinks/Week Comments Never 0 (1 standard drink = 0.6 oz pur e alcohol) AUDIT-C Answer Date Recorded Frequency of Alcohol Consumption Never 10/01/2019 Average Number of Drinks Not on file 019 Frequency of Binge Drinking Not on file 04/2019 Sex and Gender Information Value Date Recorded [...] encounter Miscellaneous Notes * Telephone Encounter - Karmen Lora RN - 08/31/2020 2:26 PM CDT Call mother back to discuss Dr. Álvarez's response to her question if the nortriptyline could be related to abdominal pain. Mother verbalized understanding and is continuing to follow up with her pcp inregards to the ongoing abdominal pain. * Telephone Encounter - Valencia Álvarez MD - 08/31/2020 12:21 PM CDT Unlikely that the abdominal pain is related to nortriptyline- she was on the med before and did nothave the pain and the med can help with abdominal symptoms related to IBS (don't know what her GI issues are from though). * Telephone Encounter - Karmen Lora RN - 08/31/2020 8:28 AM CDT Mother called and explained that she took Namita to her button maker and installer last week to have them evaluate some bad stomach pain that Namita has been experiencing over the last month. Mother explained that Namita's pcp wanted mother to reach out to Dr. Álvarez to ask if the stomach pain could be related to restarting her nortriptyline? Namita re-started the [id number] MG capsule: 1 capsule at bedtime on 07/26/2020. Mother explained that Namita tolerated the nortriptyline previously with no side effects. e[facility] didn't list stomach pain as a side effect. Dr. Álvarez, Do you feel that this new onset of stomach pain for the past month could be related to re-starting nortriptyline? documented in this encounter Plan of Treatment Not on file documented as of this encounter Visit Diagnoses Not on filedocumented in this encounter Care Teams High Reach Operator Relationship Specialty Start Date End Date Mathew Garcia MD [address] [place] [id number] PCP - General Pediatrics 02/29/16 05/06/24 documented as of this encounter
--- OUTSIDE RECORDS SUMMARY | 2024-11-24 14:33 | XMS_ITS | Encounter Summary ---
Author Organization [facility] Address [address] [place] [address] Care Team Providers Care Paving Machine Operator Name Role Phone Mathew Garcia MD Primary Care Provider [phone] Reason for Visit * Reason Comments Headache Has had a headache f or three weeks straight. Was in the ED on the 6th and received the cocktail this was the second cocktail in three days. Encounter Details Date Type Department Care Team (Latest Contact Info) Description 10/16/2019 10:45 AM WO[employer]EN F[employer]IT[employer]ER - 10/16/2019 11:59 PM [facility] Hospital Encounter [facility] - Neurology [address] [place] [id number] Valencia Álvarez MD [address] [place] [id number] Discharge Disposition: Home or Self Care Social [...] or suspected to have Coronavirus / COVID-19? No / Unsure 05/28/2020 10:40 AM CDT documented as of this encounter Last Filed Vital Signs Vital Sign Reading Time Taken Comments Blood Pressure 118/70 10/16/2019 10:53 AM WO[employer] F[employer]IT[employer]ER Pulse - - Temperature - - Respiratory Rate - - Oxygen Saturation - - Inhaled Oxygen Concentration - - Weight 89 kg (196 lb 3.4 oz) 10/16/2019 10:53 AM WO[employer] Height 165.4 cm (5' 5.12 ) 10/16/2019 10:[address] Body Mass Index 32.53 10/16/2019 10:53 AM [employer] Body Mass Index Percentile 96.99% 10/16/2019 10: 53 AM WO[employer]EN F[employer]IT[employer]ER Growth Chart: [facility] (Girls, 2- 20 Years) documented [...] No 10/06/2016 documented as of this encounter Discharge Instructions * Patient Instructions* Guilherme Lo MD - 10/16/2019 12:10 PM WO[employer]EN F[employer]IT[employer]ER Dear Namita You have chronic daily headache and also migraine headache with prodrome but without aura We recommedn 1. Keep headache diary 2. Maintain active lifestyle - limit screen time 3. Eat healthy diet, and do not skip meals 4. Drink plenty of water, and avoid caffeine regularly. 5. Sleep: 1. Maintain good sleep routine. 2. Avoid distractions at bedtime such as TV, computer. 3. Get at least 8-10 hours of sleep nightly 6. Do not use pain medication (such as Tylenol, Ibuprofen or aleve) more than 2- 3 times/week in order to avoid medication overuse headaches 7. At onset of your bad headache or migrainous headache, take aleve first if does not work takes Imitrex 50 mg for headache 8. Do not take Imitrex tablet more than 2 tablets for one headache (should be in 2 hour apart) for one headache and more than 2 to three per week and no more than 10 tablets per month 9. Call in 4-6 weeks with update regarding headaches, sooner for concerns 10. please start taking nortriptyline 10 mg at bed time 11. Please start vit B2 (riboflavine) 400 mg once daily 12. You need a psychiatric consult for your anxiety and sadness, please ask your PCP for referral, we think cognitive behavioral therapy will help you with your headache and anxiety 13. You need also physical therapy for your migraine headache 14. 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 documented in this encounter Medications at Time of Discharge Medication Sig Dispensed Refills Start Date End Date LORYNA 3-0.02 MG tablet TK 1 T PO QD CONTINUOUSLY 0 07/26/2019 melatonin 5 MG tablet Take 10 mg by mouth at bedtime Multiple Vitamin (MULTI VITAMIN DAILY PO) citalopram (CELEXA) 40 MG tablet Take 40 mg by mouth once daily 06/03/2020 gabapentin (NEURONTIN) 100 MG capsuleIndications:N eurogenic Pain (Inactive) 1 tab by mouth 3 times daily Reasons: Neurogenic Pain 90 capsule 5 09/24/2017 06/03/2020 naproxen (NAPROSYN) 500 MG tablet Take 1 tablet by mouth 2 times daily as needed for Pain If you are needed naproxen more than 4 days a week then call Neurology 50 tablet 10/01/2019 06/03/2020 nortriptyline (PAMELOR) 10 MG capsule Take 1 capsule by mouth at bedtime 60 capsule 3 10/16/2019 04/23/2020 riboflavin 100 MG tablet Take 4 tablets by mouth once daily 60 tablet 3 10/16/2019 06/03/2020 SUMAtriptan (IMITREX) 25 MG tablet Take 25 mg by mouth as needed 0 10/06/2019 06/03/2020 documented as of this encounter Progress Notes * Valencia Álvarez MD - 10/16/2019 11:26 AM CST Images from the original note were not included. Pediatric Neurology Clinic follow-up Visit Patient Name: Namita Reyes : 2005 Date of Encounter: 10/16/2019 I had the pleasure of seeing your patient, Namita in the Neurology Clinic at [facility]. She was accompanied by her Mother. Namita is a 14 year old female presented to neurology clinic for management of her chronic daily headache. She had followed Dr Lquue in our child neurology clinic in 2016 and 2017 for migraine headaches. she was admitted twice to ED earlier this month for severe migraine headache and after negative w/u including ophthalmoscope and brain CT scanning had received migraine cocktail and was discharged with Imitrex and was recommended to follow with neurology clinic for further evaluation and treatment. She and her mom appreciates that she has been having headache since age 7, and her headache frequency and severity have worsened over time. She has had daily chronic headache and 3 bad migraine headache per week since last 4 years. Her chronic daily headaches are 6/10 in severity, start daily aftershe wakes up in the morning and get worse at afternoon. They are located either in left or right orboth temples. She feels nauseated with some of them but has never had vomiting with them. Her bad migraine headaches happen up to three time per week, 8-10/10 in severity, has a prodrome or warning sign only a few minutes before them as either dizziness, visual glares or smells. Are associated withn/v, photo and phono phobia, noting makes them better even rest. Both chronic daily or migraine headache lasts all day. She has never had a headache-free day during last 4 year. Has had 13.5 missed school day in 2019. She had tried Topamax up to 50 mg in 2016 but stopped taking it due to ineffectiveness. The tried gabapentin but stopped taking it after one week due to side effect (passed out in school and felt tired). She has had a lot of stress mostly related to her school homework or assignments and said I feel sad stressed out. She takes citalopram 40 mg daily since last year for her anxiety without any effect on her anxiety or headache However, she has never had a psychiatric assessments or CBT. She is not able to do any exercise because any activity even walking makes her headache worse. She had h/o heavy/irregular menses up to two years ago, but then has started taking low dose ocp (Loryna) and now, her periods have stopped. Denies any relationship between her headache and her periods atthat time. She also take aleve for her migraine headache and was prescribed maitre last week after discharge from ED to take it for her bad headaches. She also takes occasionally Mg oxide. She had a brain MRI get done several year ago that as unremarkable. Interval History Headache semiology Onset: Age 7 Frequency daily chronic headache , and 3 migraine headache per week Location temples, either left or right or both Quality: Any type from throbbing, to pressure or stabbing type pain Last: All the day Radiation no Severity Average 6/10 for chronic daily h/a, 8-10/10 for bmigraine headaches Nausea y Vomiting y with migraine h/a Dizziness Sometimes Aura more likely has short prodromes of different symptoms a few minutes before some of her headaches Photophobia yes Phonophobia yes Awaken at night with headache yes up to 3 night s per week history of head trauma No Family History of migraine: Yes: her father /her mother and her twin sister Improve with rest: no Vision changes: No Total days missed of school in past 3 months due to headache: 13.5 days in 2019 Mood: anxious, sad and stressed out Sleep: sleeps 7-8 hours per night, denies snoring, Relation to her periods: no Hormonal Contraception: yes, Loryna Daily water intake: adequate Screen time :4 hours per day Exercise: no, any activity makes her headachesworse School grades; Overall A or B Coffee intake : denies drinking coffee Relationship to special food or diet or weather: no Past Medical History History: No history on file., Medical History: Past Medical History: Diagnosis Date ??? History of migraine headaches ??? 31 weeks gestation- NICU for 17 days-twin ??? Twin , mate liveborn twin sister , Surgical History: Past Surgical History: Procedure Laterality Date ??? Tonsillectomy and Adenoidectomy N/A 10/06/2016 N/A; TONSILLECTOMY AND ADENOIDECTOMY, RIGHT REMOVAL OF MASS (NASOPHARYNX CYST) , Family history: No family history on file. and Social History: Social History Social History Narrative ??? Not on file Current Medications ??? citalopram (CELEXA) 40 MG tablet Take 40 mg by mouth once daily ??? gabapentin (NEURONTIN) 100 MG capsule 1 tab by mouth 3 times daily Reasons: Neurogenic Pain ??? LORYNA 3-0.02 MG tablet TK 1 T PO QD CONTINUOUSLY ??? melatonin 5 MG tablet Take 10 mg by mouth at bedtime ??? Multiple Vitamin (MULTI VITAMIN DAILY PO) ??? naproxen (NAPROSYN) 500 MG tablet Take 1 tablet by mouth 2 times daily as needed for Pain If you are needed naproxen more than 4 days a week then call Neurology ??? SUMAtriptan (IMITREX) 25 MG tablet Take 25 mg by mouth as needed Allergies No Known Allergies Review of Systems GEN: Denies change in weight, appetite, fever, chills, night sweats Ear/Nose: Denies rhinitis, epistaxis Throat: Denies sore throat, dysphagia RESP: Denies cough, sputum, shortness of breath CARDIAC: Denies chest pain, palpitations, orthopnea, edema GI: Denies nausea/vomiting, abdominal pain, diarrhea, constipation, : Denies urinary urgency, dysuria Male/Female Denies sores, discharge M/S: Denies arthralgias, myalgias Heme: Denies bleeding, bruising SKIN: Denies rash, pruritis NEURO: headache, visual changes, anxiety, depression Vital Signs Height: Height: 165.4 cm (5' 5.12 ) Weight: Weight: 89 kg (196 lb 3.4 oz) 98 %ile (Z= 2.02) based on CDC (Girls, 2- 20 Years) [id number] data using vitals from 10/01/2019 from contact on 10/01/2019. Blood Pressure: BP Readings from Last 1 Encounters: 10/16/19 118/70 (77 %, Z = 0.74 / 65 %, Z = 0.39)* *BP percentiles are based on the June 2017 AAP Clinical Practice Guideline for girls Head Circumference: No head circumference on file for this encounter. BP: 118/70 Blood pressure percentiles are 77 % systolic and 65 % diastolic based on the June 2017AAP Clinical Practice Guideline. Blood pressure percentile targets: 90: 124/78, 95: 128/82, 95 + 12mmH/94. Body mass index is 32.53 kg/m??. 66 %ile (Z= 0.42) based on [facility] (Girls, 2-20 Years) [id number] data based on Stature recorded on 10/16/2019. 98 %ile (Z= 2.01) based on [facility] (Girls, 2-20 Years) [id number] data using vitals from 10/16/2019. 98 %ile (Z= 1.96) based on [facility] (Girls, 2-20 Years) BMI-for-age based on BMI available as of 10/16/2019. Development ?? Has been normal during infancy and childhood Imaging 10/01/2019 TECHNIQUE: CT of the head was performed without contrast according to standard protocol. Automated dose reduction techniques were employed. ?? DOSE: CTDIvol: 36 mGy, DLP: 653 mGy-cm ?? The reported CTDIvol (mGy) and DLP (mGy-cm) values are generated from scan acquisition factors based on a 32 cm body phantom or 16 cm head phantom and may underestimate or overestimate the actual patient dose based on patient size and other factors. ?? COMPARISON: MRI brain without contrast 08/17/2016 ?? FINDINGS: No intracranial hemorrhage or extra-axial fluid collection. Cox-white matter differentiation appears preserved. ?? No mass effect or midline shift. Ventricles are normal in size, shape, and configuration. ?? The bony calvarium is intact. Mucous retention cysts in right side of sphenoid sinus, right posterior ethmoid compartment, bilateral maxillary antra.. ?? IMPRESSION ?? No acute intracranial CT abnormality. ?? Physical Exam General: obesity in 98 percentile A&Ox3, follows commands, NAD HEENT: HC/AT Heart: RRR Lungs: CTAB Abdomen: Non-tender, non-distended, BS+ Neuro Exam: Mental Status: Awake, alert oriented to person, place, and time, speech is fluent and without dysarthria Cranial Nerves: PERRL, EOMI, VF intact, facial sensation intact, facial expression symmetric, hearing intact to finger rub bilaterally, symmetric palate elevation, shoulder shrug intact and symmetric, tongue protrudes midline Motor: Abnormal movement : none Normal muscle bulk Normal muscle tone Strength Left upper (5/5)and lower extremity 5/5 Right upper (5/5) and lower extremity (5/5) Reflexes: 2+ throughout Sensory: Intact Cerebellar: FNF intact Gait and Station: normal gait and stance Romberg's: steady Assessment and Plan 1- chronic daily headache refractory to treatment 2- severe migraine headaches 3 times per week with brief prodrome and refractory to treatment 3- obesity 4- anxiety and depression Plan: 1. Keep headache diary 2. Maintain active lifestyle - limit screen time 3. Eat healthy diet, and do not skip meals 4. Drink plenty of water, and avoid caffeine regularly. 5. Sleep: 1. Maintain good sleep routine. 2. Avoid distractions at bedtime such as TV, computer. 3. Get at least 8-10 hours of sleep nightly 6. Do not use pain medication (such as Tylenol, Ibuprofen or aleve) more than 2- 3 times/week in order to avoid medication overuse headaches 7. At onset of bad headache or migrainous headache, takes aleve first if does not work takes Imitrex 50 mg for headache 8. Do not take Imitrex more than 2 tablets for one headache (should be in 2 hour apart) and more than 2 to three per week and no more than 10 tablets per month 9. Call in 4-6 weeks with update regarding headaches, sooner for concerns 10. to start nortriptyline 10 mg at bed time 11. to start vit B2 (riboflavine) 400 mg once daily 12. psychiatric consult for anxiety and depression per her PCP, we think cognitive behavioral therapy will help her with headaches and anxiety 13. physical therapy for migraine headache 14. Return to headache clinic in 6 months or sooner if needed Follow-Up No follow-ups on file. Case finding was discussed with Dr Álvarez, pediatric neurology Attending Guilherme Lo MD Neurology resident CC: Mathew Garcia MD [address] [place] [address] Date: 10/16/2019 11:26 AM Peds Neuro Attending Note NAY: 10.16.2019 Pt seen and examined with Neuro resident Dr. Lo - please see above note for details. Agree withnote/plan as above. Pt is a 14 y/o with chronic headaches previously see by Dr. Luque and had been on Topiramate and gabapentin for headache prevention. She has been having increasing headaches and returns for further headache management. Has several lifestyle issues as noted above and presented to the ER twice recently for headaches. No change in the quality of her headaches from prior and no worsening of headaches with neck movements, position changes, bending over, valsalva etc. No aura or focal neurological deficits with headaches. missed several days of school last year from headaches. Has had menstrual irregularities and is now on OCP - no change in headaches with that. MRI Brain has been normal. Has mood issue loja dis on Citalopram. Denies any suicidal thoughts presently. Has nothad CBT for headaches and coping. Has poor physical endurance. Gets a lot of screen time. OE: BP 118/70 Ht 1.654 m (5' 5.12 ) Wt 89 kg (196 lb 3.4 oz) BMI 32.53 kg/m2 Wt Readings from Last 3 Encounters: 10/16/19 89 kg (196 lb 3.4 oz) (98 %, Z= 2.01)* 10/01/19 89.3 kg (196 lb 13.9 oz) (98 %, Z= 2.02)* 01/24/18 89.8 kg (198 lb) (99 %, Z= 2.22)* * Growth percentiles are based on CDC (Girls, 2-20 Years) data. Ht Readings from Last 3 Encounters: 10/16/19 1.654 m (5' 5.12 ) (66 %, Z= 0.42)* 01/24/18 1.65 m (5' 4.96 ) (71 %, Z= 0.56)* 09/24/17 1.679 m (5' 6.1 ) (86 %, Z= 1.08)* * Growth percentiles are based on CDC (Girls, 2-20 Years) data. Body mass index is 32.53 kg/m??. 98 %ile (Z= 1.96) based on CDC (Girls, 2-20 Years) BMI-for-age based on BMI available as of 10/16/2019. 98 %ile (Z= 2.01) based on CDC (Girls, 2-20 Years) [id number] data using vitals from 10/16/2019. 66 %ile (Z= 0.42) based on CDC (Girls, 2-20 Years) [id number] data based on Stature recorded on 10/16/2019. She is alert, interactive, tired appearing. Mildly flattened affect. Normal CN (incl fundi with sharp flat discs b/l), motor, DTR's, coordination and gait. Has neck muscle tightness, normal back, spine. Discussed chronic headaches - mixed pattern of tension type and migraines. Has been on Topiramate and gabapentin in he pas without much efficacy. discussed low dose nortriptyline - benefits and side effects. Will also start nutracetical - Riboflavin. May likely benefit from CBT. Refer to PT. Mom/ptagreeable to the plan as detailed above. Aware to call with interim concerns ad updates. 45 minutes spent with pt.mom with 50% time in discussion, counseling, management of pt's chronic headaches. 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
--- OUTSIDE RECORDS SUMMARY | 2024-11-24 14:33 | XMS_ITS | Encounter Summary ---
Author Organization [facility] Address [address] [facility] [place] [address] Care Team Providers Care Director Of Informatics Name Role Phone Mathew Garcia MD Primary Care Provider [phone] Reason for Visit * Reason Comments Headache migraine x 15 days. follows with neurology. next appt in november. several tests have been done before per mom. seen in [facility]SH ER 2 days ago. no relief from pain meds. Encounter Details Date Type Department Care Team (Late st Contact Info) Description 10/01/2019 7:43 PM MUNITIONS HANDLER SUPERVISOR - 10/01/2019 11:07 PM MUNITIONS HANDLER SUPERVISOR Emergency ER at [address] [address] Marcelle Nieves MD [address] [place] [id number] Acute intractable headache, unspecified headache type; Other migraine with status migrainosus, intractable Discharge Disposition: Home or Self Care Social [...] Sign Reading Time Taken Comments Blood Pressure 115/67 10/01/2019 9:17 PM MUNITIONS HANDLER SUPERVISOR Pulse 92 10/01/2019 9:17 PM MUNITIONS HANDLER SUPERVISOR Temperature 36.6 ??C (97.8 ??F) 10/01/2019 9:17 PM CS T Respiratory Rate 16 10/01/2019 9:17 PM MUNITIONS HANDLER SUPERVISOR Oxygen Saturation - - Inhaled Oxygen Concentration - - Weight 89.3 kg (196 lb 13.9 oz) 10/01/2019 7:33 PM MUNITIONS HANDLER SUPERVISOR Height - - Body Mass Index - - documented in this encounter Functional Status Functional [...] as of this encounter Discharge Instructions * Attachments The following attachments cannot be sent through Care Everywhere. * Migraine Headache in Children (AfterCare(R) Instructions(ER/ED)) (Somali) documented in this encounter Medications at Time [...] Fever or Pain 473 mL 10/06/2016 10/16/2019 citalopram (CELEXA) 40 MG tablet Take 40 mg by mouth once daily 06/03/2020 FLUoxetine (PROZAC) 10 MG capsule Take 10 mg by mouth once daily 10/16/2019 gabapentin (NEURONTIN) 100 MG capsuleIndications:N eurogenic Pain (Inactive) 1 tab by mouth 3 times daily Reasons: Neurogenic Pain 90 capsule 5 09/24/2017 06/03/2020 naproxen (NAPROSYN) 500 MG tablet Take 1 tablet by mouth 2 times daily as needed for Pain If you are needed naproxen more than 4 days a week then call Neurology 50 tablet 10/01/2019 06/03/2020 documented as of this encounter ED Notes * Roula Perdue RN - 10/01/2019 11:06 PM CST Discharge instructions discussed with family.Opportunity for questions, family member verbalized understanding of discharge plan for home. Pt alert and ambulatory at time of discharge. TIONS HANDLER SUPERVISOR * Ramses Ellison, RN - 10/01/2019 8:54 PM CST Peripheral IV insertion placed under ultrasound guidance by Tabitha MSOLEY using aseptic technique. 1.8 inch 20 g placed in left ac without difficulty using 1 attempts. Positive blood verification noted and confirmed by Rony mosley. Visualization of catheter placement in vein and patency under ultrasound imaging to verify vascular access noted and confirmed by rony mosley. Bordered occlusive dressing placed for stabilization of PIV. TIONS HANDLER SUPERVISOR * Marcelle Nieves MD - 10/01/2019 8:12 PM CST Provider contact with the patient: 10/01/2019 8:12 PM [facility] Namita Reyes [id number] History Chief Complaint Patient presents with ??? Headache migraine x 15 days. follows with neurology. next appt in november. several tests have been done before per mom. seen in OSH ER 2 days ago. no relief from pain meds. Chief complaint narrative was entered by triage nurse, not by physician. I have read the resident/medical student/IS PROJECT MANAGER history. Unless appended by me below, I agree with findings as documented. HPI History provided per: Patient Namita Reyes is a 14 year old female with a past medical history of migraines who presents to ED for evaluation of a headache that began about 2 weeks ago. Pt reports that she has had a constant headache for the last 2 weeks, which is diffuse but mostly present in her bilateral temporal areas. Pt also reports some intermittent nausea associated with the headache as well as photophobia. No fevers. Pt reports that she sometimes has whitening of her left vision field. Pt reports that last night her left eye deviated to the left. Pt was seen at [facility] a few days ago and received IV fluids andsteroids, with 2 other medications but she is unsure of what they were, however they were not very effective. No other recent injuries or illnesses. All immunizations are up-to-date. No Known Allergies Past Medical History: Diagnosis Date ??? History of migraine headaches ??? infant 31 weeks gestation- NICU for 17 days-twin ??? Twin , mate liveborn twin sister Social History Socioeconomic History ??? Marital status: Single Spouse name: Not on file ??? Number of children: Not on file ??? Years of education: Not on file ??? Highest education level: Not on file Occupational History ??? Not on file Social Needs ??? Financial resource strain: Not on file ??? Food insecurity: Worry: Not on file Inability: Not on file ??? Transportation needs: Medical: Not on file Non-medical: Not on file Tobacco Use ??? Smoking status: Passive Smoke Exposure - Never Smoker ??? Smokeless tobacco: Never Used Substance and Sexual Activity ??? Alcohol use: Never Alcohol/week: 0.0 standard drinks Frequency: Never ??? Drug use: Never ??? Sexual activity: Not on file Lifestyle ??? Physical activity: Days per week: Not on file Minutes per session: Not on file ??? Stress: Not on file Relationships ??? Social connections: Talks on phone: Not on file Gets together: Not on file Attends baptist service: Not on file Active member of club or organization: Not on file Attends meetings of clubs or organizations: Not on file Relationship status: Not on file ??? Intimate partner violence: Fear of current or ex partner: Not on file Emotionally abused: Not on file Physically abused: Not on file Forced sexual activity: Not on file Other Topics Concern ??? Special Diet Not Asked Social History Narrative ??? Not on file No family history on file. Patient's Medications New Prescriptions NAPROXEN (NAPROSYN) 500 MG TABLET Take 1 tablet by mouth 2 times daily as needed for Pain If you are needed naproxen more than 4 days a week then call Neurology Previous Medications ACETAMINOPHEN (TYLENOL) 160 MG/5ML SOLUTION Take 20.3 mL by mouth every 4 hours as needed for Feveror Pain CITALOPRAM (CELEXA) 40 MG TABLET Take 40 mg by mouth once daily FLUOXETINE (PROZAC) 10 MG CAPSULE Take 10 mg by mouth once daily GABAPENTIN (NEURONTIN) 100 MG CAPSULE 1 tab by mouth 3 times daily Reasons: Neurogenic Pain MELATONIN 5 MG TABLET Take 10 mg by mouth at bedtime MULTIPLE VITAMIN (MULTI VITAMIN DAILY PO) Modified Medications No medications on file Discontinued Medications IBUPROFEN (ADVIL; MOTRIN) 100 MG/5ML SUSPENSION Take 15 mL by mouth every 6 hours as needed for Pain or Fever May start using ibuprofen (ADVIL/MOTRIN) 3 days after surgery. Review of Systems All relevant systems reviewed and all negative except as noted in resident/medical student/IS PROJECT MANAGER and attending HPI/ROS. Constitutional: No activity change, appetite change or fever HENT: No congestion or rhinorrhea Respiratory: No cough or wheezing Cardiovascular: Negative GI: No abdominal pain, diarrhea, nausea or vomiting : No decreased urine output MS: Negative Neuro: headache Skin: No rash or wounds All other systems negative except as noted above. Physical Exam I have reviewed the resident/medical student/IS PROJECT MANAGER physical exam. Unless appended by me below, I agreewith the PE as documented. Vitals: 10/01/19 1933 10/01/19 2117 BP: (!) 136/80 115/67 Pulse: 76 92 Resp: 20 16 Temp: 97.6 ??F (36.4 ??C) 97.8 ??F (36.6 ??C) Weight: 89.3 kg (196 lb 13.9 oz) Constitutional: Pt appears well-developed and well-nourished; in no acute distress Head: Normocephalic; atraumatic. Eyes: Conjunctivae are normal. PERRL. EOMI. No papilledema on fundoscopic exam. ENT: Mucous membranes moist. Neck: Supple. Normal ROM. Cardiovascular: Regular rate and rhythm. S1 and S2 normal. No murmurs, rubs or gallops. Pulmonary: Normal respiratory effort. Breath sounds clear and equal bilaterally; no wheezing, rales, or rhonchi. Abdominal: Soft. No abdominal tenderness. No distension. Extremities: Full ROM. Neurological: Pt is alert and interactive. Normal speech. Normal gait. CN 2-7, 9-12 grossly intact.Reported diminished hearing on right side compared to left. Skin: No rash or lesions. Nursing notes and vitals reviewed. Procedures Procedures Labs/Orders Orders Placed This Encounter ??? CT HEAD WO CONTRAST ??? HCG URINE QUAL POCT NOTIFICATION ??? lidocaine buffered 1 % injection 0.2 mL ??? 0.9 % nacl IV BOLUS 1,000 mL ??? ketorolac (TORADOL) injection 30 mg ??? diphenhydrAMINE (BENADRYL) injection 50 mg ??? metoclopramide (REGLAN) 20 mg in 0.9% NaCl 50 mL IVPB ??? naproxen (NAPROSYN) [address] HEAD WO CONTRAST (Results Pending) Hospital Encounter on 10/01/19 HCG URINE QUAL POCT NOTIFICATION Result Value Ref Range Comment Notification Label Only - See Separate Report ED Course Initial Assessment & Plan: 14 yo female presenting with MANDEL. Hx of migraines. Given increased severity and reported eye deviation, will obtain CT head. If CT head is normal, will proceed with migraine cocktail. 10:[address] head shows no acute intercranial process. Will continue with migraine cocktail. 11:02 PM Patient reports that her headache has somewhat improved after the migraine cocktail. Spoke with Neurology who recommended discharge with naproxen or admission for further treatment, mother opted to be discharged home with naproxen. Patient to be discharged home; Mother verbalizes agreement to the rae padilla plan and all questions answered. Instructed to return to the ED with worsening symptoms or any other concerns and to follow up with PMD. Medical Decision Making Differential Diagnosis: migraine headache vs tension headache vs pseudotumor cerebri vs intercranial mass Medical Decision Making I have reviewed the: Previous Chart, Nursing Notes, Vitals. I have interpreted the following results: CT Scans. I have discussed the case with Family/Caregiver. The total time providing critical care (excluding time spent for procedures) was: 0 minutes. Clinical Impression and Disposition Final Diagnosis: Final diagnoses: Acute intractable headache, unspecified headache type Other migraine with status migrainosus, intractable 11:04 PM The patient remains stable at the time of discharge. My/Our clinical impression was discussed and results were reviewed. The patient/guardian was given the opportunity to ask questions, and I/we addressed them as completely as possible given the information available at present. The therapeutic plan was discussed, instructions were given and the importance of primary care follow up was stressed and encouraged. The patient/guardian voiced understanding of the plan, indications to return, and the need for follow up. New Medications: New Prescriptions NAPROXEN (NAPROSYN) 500 MG TABLET Take 1 tablet by mouth 2 times daily as needed for Pain If you are needed naproxen more than 4 days a week then call Neurology I have advised the patient to follow-up with: [facility] Neurology [address] [place] [id number] Call in 2 days Disposition: Discharged 10/01/2019 11:04 PM Scribe Attestation By signing my name below, I, Norman England, attest that this documentation has been prepared under the direction and in the presence of Dr. Nieves Electronically Signed: Norman England 10/01/2019 8:12 PM Provider Attestation I, Dr. Nieves, personally performed the services described in this documentation. All medical record entries made by the scribe were at my direction and in my presence. I have reviewed the chart and agree that the record reflects my personal performance and is accurate and complete. I have fullyparticipated in the care of this patient. I have reviewed all pertinent clinical information available to me during this encounter, including history, physical exam and plan. I have reviewed nursing notes, vital signs, available labs and radiographic studies. With respect to physicians in training and mid- level providers, I, Dr. Nieves, agree with the assessment and plan except if revised in my note. TIONS HANDLER SUPERVISOR * Dario Curiel MD - 10/01/2019 7:46 PM CST Provider contact with the patient: 10/01/2019 [facility] The following note is written by a physician in training working with a supervising attending. As such, the note will be an abbreviated note specifying monsalve portions of the ED visit. A more complete note from the supervising attending physician can be found in the medical record. HISTORY Namita Reyes [id number] Chief Complaint Patient presents with ??? Headache migraine x 15 days. follows with neurology. next appt in november. several tests have been done before per mom. seen in OSH ER 2 days ago. no relief from pain meds. HPI I have discussed the HPI documented in the supervisory provider???s note, unless otherwise stated below. REVIEW OF SYSTEMS I have discussed the ROS documented in supervisory provider's note, unless otherwise stated below. PHYSICAL EXAM I have discussed the PE documented in supervisory provider's note. Pertinent physical exam findingsstated below. Physical Exam PE: BP 115/67 Pulse 92 Temp 97.8 ??F (36.6 ??C) (Oral) Resp 16 Wt 89.3 kg (196 lb 13.9 oz) General: uncomfortable HENT: atraumatic, nose clear, moist mucous membranes Eyes: lids normal, sclera clear and conjunctiva without injection Neck: supple with full ROM Cardiovascular: good peripheral perfusion Chest: normal effort Abdomen: non-distended Musculoskeletal: No clubbing, cyanosis or edema Skin: no rashes Neuro: alert, answers questions appropriately, CN 2-12 intact, equal strength in upper and lower extremities PROCEDURE Procedures LABS/ORDERS Orders Placed This Encounter ??? CT HEAD WO CONTRAST ??? HCG URINE QUAL POCT NOTIFICATION ??? lidocaine buffered 1 % injection 0.2 mL ??? 0.9 % nacl IV BOLUS 1,000 mL ??? ketorolac (TORADOL) injection 30 mg ??? diphenhydrAMINE (BENADRYL) injection 50 mg ??? metoclopramide (REGLAN) 20 mg in 0.9% NaCl 50 mL IVPB ??? naproxen (NAPROSYN) [address] HEAD WO CONTRAST (Results Pending) Hospital Encounter on 10/01/19 HCG URINE QUAL POCT NOTIFICATION Result Value Ref Range Comment Notification Label Only - See Separate Report ED COURSE Namita Reyes is a 14 year old female presenting with: -Given the change in intensity of headache, will order CT head. If normal, will proceed with migraine cocktail. - reports headache is improved (not resolved) after cocktail. No papilledema noted on exam. Spoke to Neurology. Offered discharge with Naproxen vs admission for further management. Mom prefers discharge if possible and calling Neurology in a few days to follow up over the phone. Counseled on headaches, migraines, pseudotumor, rebound headaches, return precautions. All questions answered. Medical Decision Making CLINICAL IMPRESSIONS AND DISPOSITION Final Diagnosis: Final diagnoses: Acute intractable headache, unspecified headache type Other migraine with status migrainosus, intractable Disposition: Discharge TIONS HANDLER SUPERVISOR documented in this encounter Plan of Treatment Not on file documented as of this encounter Procedures Procedure Name Priority Date/Time Associated Diagnosis Comments HCG URINE QUAL POCT NOTIFICATION STAT 10/01/2019 9:30 PM MUNITIONS HANDLER SUPERVISOR CT HEAD WO CONTRAST STAT 10/01/2019 8 :30 PM MUNITIONS HANDLER SUPERVISOR Acute intractable headache, unspecified headache type documented in this encounter Results * HCG URINE QUAL POCT NOTIFICATION (10/01/2019 9:30 PM MUNITIONS HANDLER SUPERVISOR) Comment Notification Label Only - See Separate Report 10/01/2019 9:30 PM MUNITIONS HANDLER SUPERVISOR [facility] Urine URINE / Unknown 9 8:18 PM MUNITIONS HANDLER SUPERVISOR Marcelle Nieves MD LAB - URINALYSI S ORDERABLES Performing Organization Address City/State/[facility] Co de Phone Number [facility] [address] [place] [address] * CT HEAD WO CONTRAST (10/01/2019 8:30 PM MUNITIONS HANDLER SUPERVISOR) Anatomical Region Laterality Modality Head Computed Tomogra phy 10/02/2019 7:23 AM MUNITIONS HANDLER SUPERVISOR Impressions 10/02/2019 7:25 AM MUNITIONS HANDLER SUPERVISOR No acute intracranial CT abnormality. Reading Radiologist: Rony Zamora MD on 10/02/2019 at 7:25 AM Narrative 10/02/2019 7:25 AM MUNITIONS HANDLER SUPERVISOR EXAMINATION: Computed tomography (CT) of the head without contrast HISTORY: Headache TECHNIQUE: CT of the head was performed without contrast according to standard protocol. Automated dose reduction techniques were employed. DOSE: CTDIvol: 36 ??mGy, DLP: 653 mGy-cm The reported CTDIvol (mGy) and DLP (mGy-cm) values are generated from scan acquisition factors based on a 32 cm body phantom or 16 cm head phantom and may underestimate or overestimate the actual patient dose based on patient size and other factors. COMPARISON: MRI brain without contrast 08/17/2016 FINDINGS: No intracranial hemorrhage or extra-axial fluid collection. Cox-white matter differentiation appears preserved. No mass effect or midline shift. Ventricles are normal in size, shape, and configuration. The bony calvarium is intact. Mucous retention cysts in right side of sphenoid sinus, right posterior ethmoid compartment, bilateral maxillary antra.. Procedure Note Rony Zamora MD - 10/02/2019 EXAMINATION: Computed tomography (CT) of the head without contrast HISTORY: Headache TECHNIQUE: CT of the head was performed without contrast according to standard protocol. Automated dose reduction techniques were employed. DOSE: CTDIvol: 36 mGy, DLP: 653 mGy-cm The reported CTDIvol (mGy) and DLP (mGy-cm) values are generated from scan acquisition factors based on a 32 cm body phantom or 16 cm head phantom and may underestimate or overestimate the actual patient dose based on patient size and other factors. COMPARISON: MRI brain without contrast 08/17/2016 FINDINGS: No intracranial hemorrhage or extra-axial fluid collection. Cox-white matter differentiation appears preserved. No mass effect or midline shift. Ventricles are normal in size, shape, and configuration. The bony calvarium is intact. Mucous retention cysts in right side of sphenoid sinus, right posterior ethmoid compartment, bilateral maxillary antra.. IMPRESSION No acute intracranial CT abnormality. Reading Radiologist: Rony Zamora MD on 10/02/2019 at 7:25 AM Dario Curiel MD CT ORDERABLES documented in this encounter Visit Diagnoses Diagnosis Acute intractable headache, unspecified headache type Other migraine with status migrainosus, intractable documented in this encounter Administered Medications Inactive Administered Medications - up to 3 most recent administrations Medication Order MAR Action Action Date Dose Rate Site 0.9 % nacl IV BOLUS 1,000 mL 1,000 mL, Intravenous, ONCE, 1 dose, On Sun10/01/19 at 2045 $ New Bag/Syringe 10/01/2019 8:49 PM MUNITIONS HANDLER SUPERVISOR 1,000 mL diphenhydrAMINE (BENADRYL) injection 50 mg 50 mg, Intravenous, NOW, 1 dose, On Sun10/01/19 at 2030, Administer IV at a rate not exceeding 25 mg/min. Can dilute in 5-10 mL NS as needed for patient comfort. $ Given 10/01/2019 8:50 PM MUNITIONS HANDLER SUPERVISOR 50 mg ketorolac (TORADOL) injection 30 mg 30 mg, Intravenous, NOW, 1 dose, On Sun10/01/19 at 2030 $ Given 10/01/2019 8:52 PM MUNITIONS HANDLER SUPERVISOR 30 mg lidocaine buffered 1 % injection 0.2 mL 0.2 mL, Infiltration, PRN, Pre-Procedure, Starting on Sun10/01/19 at 2014, Until Sun10/01/19 at 2213, Use J-Tip device (needleless device) to administer. Notify physician if unsuccessful, may repeat x 1. Contraindications/Precau tions with buffered lidocaine (J-Tip) use: non-intact skin, bruising, infection or open area at the site of injection, patient receiving chemotherapy, port access, thrombocytopenia with a known platelet count </= 20,000, precautions should be taken for patients receiving blood thinners or patients with blood disorders. $ Given 10/01/2019 8:49 PM MUNITIONS HANDLER SUPERVISOR 0.2 mL metoclopramide (REGLAN) 20 mg in 0.9% NaCl 50 mL IVPB 20 mg, at 200 mL/hr, Intravenous, NOW, 1 dose, On Sun10/01/19 at 2030, Refrigerate $ Given 10/01/2019 8:55 PM MUNITIONS HANDLER SUPERVISOR 20 mg 200 mL/hr documented in this encounter Active and Recently Administered Medications Times are shown in MUNITIONS HANDLER SUPERVISOR. Scheduled Medication Order 09/29/2019 09/30/2019 10/01/2019 0.9 % nacl IV BOLUS 1,000 mL (COMPLETED) 1,000 mL, Intravenous, ONCE, 1 dose, On Sun10/01/19 at 2044 2048 ($ New Bag/Syri nge - Provider: Roula Perdue RN) diphenhydrAMINE (BENADRYL) injection 50 mg (COMPLETED) 50 mg, Intravenous, NOW, 1 dose, On Sun10/01/19 at 2030, Administer IV at a rate not exceeding 25 mg/min. Can dilute in 5-10 mL NS as needed for patient comfort. 2049 ($ Given - Prov ider: Roula Perdue RN) ketorolac (TORADOL) injection 30 mg (COMPLETED) 30 mg, Intravenous, NOW, 1 dose, On Sun10/01/19 at 2030 2051 ($ Given - Prov ider: Roula Perdue RN) metoclopramide (REGLAN) 20 mg in 0.9% NaCl 50 mL IVPB (COMPLETED) 20 mg, at 200 mL/hr, Intravenous, NOW, 1 dose, On Sun10/01/19 at 2030, Refrigerate 2054 ($ Given - Prov ider: Roula Perdue RN)2109 (Due: Rx Stopped - Provider: Roula Perdue RN) PRN Medication Order 09/29/2019 09/30/2019 10/01/2019 lidocaine buffered 1 % injection 0.2 mL () 0.2 mL, Infiltration, PRN, Pre-Procedure, Starting on Sun10/01/19 at 2014, Until Sun10/01/19 at 2213, Use J-Tip device (needleless device) to administer. Notify physician if unsuccessful, may repeat x 1. Contraindications/Precautions with buffered lidocaine (J-Tip) use: non-intact skin, bruising, infection or open area at the site of injection, patient receiving chemotherapy, port access, thrombocytopenia with a known platelet count </= 20,000, precautions should be taken for patients receiving blood thinners or patients with blood disorders. 2048 ($ Given - Prov ider: Roula Perdue RN) documented in this encounter Care Teams Director Of Informatics Relationship Specialty Start Date End Date Mathew Garcia [place] [address] PCP - General Pediatrics 02/29/16 05/06/24 documented as of this encounter
--- OUTSIDE RECORDS SUMMARY | 2024-11-24 14:33 | XMS_ITS | Encounter Summary ---
Author Organization [facility] Address [address] [place] [address] Care Team Providers Care Plumbing Technician Name Role Phone Mathew Garcia MD Primary Care Provider [phone] Reason for Visit * Reason Comments Chest Pain with and with activi ty, palpitations a couple times a week, dizzy, no syncope * Cardiac (Routine) - Closed Specialty Diagnoses / Procedures Referred By Mercedez perez Referred To Contact Pediatric Cardiology / Cardiology Procedures MD ELECTROCARDIOGRAM, COMPLETE MD TTE W/DOPPLER, COMPLETE MD ECHO TRANSTHORACIC POTENTIAL TESTS - PENDING PHYSICIAN ACTION [address] [address] Aaron Manzano MD [facility] [place] [address] Referral ID Status Reason Start Date Expiration Date Visits Re quested Visits Authorized [id number] Closed 01/24/2018 07/23/2018 1 1 Encounter Details Date Type Department Care Team (Latest Contact Info) Description 01/24/2018 9:30 AM TILE APPLICATOR - 01/24/2018 11:59 PM TILE APPLICATOR Hospital Encounter [facility] Pediatrics - Cardiology [address] [place] [address] [place] [address] Aaron Manzano MD [address] [place] [id number] Discharge Disposition: Home or Self Care Social [...] Sign Reading Time Taken Comments Blood Pressure 126/80 01/24/2018 9:46 AM TILE APPLICATOR Pulse 88 01/24/2018 9:46 AM TILE APPLICATOR Temperature - - Respiratory Rate 20 01/24/2018 9:46 AM TILE APPLICATOR Oxygen Saturation - - Inhaled Oxygen Concentration - - Weight 89.8 kg (198 lb) 01/24/2018 9:46 AM TILE APPLICATOR Height 165 cm (5' 4.96 ) 01/24/2018 9:46 AM TILE APPLICATOR Body Mass Index 32.99 01/24/2018 9:46 AM TILE APPLICATOR Body Mass Index Percentile 98.10% 01/24/2018 9:4 6 AM TILE APPLICATOR Growth Chart: [facility] (Girls, 2- 20 Years) documented in this [...] Fever or Pain 473 mL 10/06/2016 10/16/2019 FLUoxetine (PROZAC) 10 MG capsule Take 10 mg by mouth once daily 10/16/2019 gabapentin (NEURONTIN) 100 MG capsuleIndications:Ne urogenic Pain (Inactive) 1 tab by mouth 3 times daily Reasons: Neurogenic Pain 90 capsule 5 09/24/2017 06/03/2020 ibuprofen (ADVIL; MOTRIN) 100 MG/5ML suspension Take 15 mL by mouth every 6 hours as needed for Pain or Fever May start using ibuprofen (ADVIL/MOTRIN) 3 days after surgery. 473 mL 10/09/2016 10/01/2019 documented as of this encounter Consult Notes * Aaron Manzano MD - 01/24/2018 12:16 PM CST Images from the original note were not included. Pediatric Cardiology Clinic Note Date of Consultation:01/24/2018 Physician or Service requesting consult: Mathew Garcia MD Dear Dr. Garcia, I had the pleasure of evaluating Namita at the [facility] for chest pain. As you know, Namita is a 12 y.o. female with a history of depression, anxiety, and migraine headaches who has been complaining of sharp chest pain over the past five years and palpitations in class over the past three weeks. Her chest pain has been long-standing, but has been worse over the past month. She complains of sharp stabbing chest pain localized to her left side as well as her lower abdomen close to her upper legs. This occurs while she is sitting, walking, and exercising. When she takes a deep breath and thismakes her chest pain worse, and holding her breath does seem to make it better. Her chest pain is not associated with other concerning symptoms. Last episode occurred on Sunday. She has been complaining of episodes of her heart beating faster over the past 3 weeks, during which it has occurred a total of 3-4 times. She notices that her heart starts beating quickly, then she feels like her heart is in her throat. These episodes start suddenly, lasts for approximately 1 minute, and then go away suddenly. This has been associated with feeling dizzy. These episodes have typically occurred during her monitors biology class while she is sitting. Palpitations have not occurred during exercise. Apparently this biology class has been a challenging class for her, and has had alot of projects. These palpitations have not occurred very much outside of this particular class inthe morning. There is no family history of cardiac arrhythmias. There is no family history of sudden cardiac She has seem to have quite a bit of anxiety, particularly since she has started high school. She iscurrently a freshman. Prozac was started recently. Namita has demonstrated normal growth and development and good activity level. She has not had fatigue, respiratory symptoms, or fainting. Review of systems: All other review of systems were checked and were negative. Current Meds: Current Outpatient Prescriptions Medication Sig Dispense Refill ??? FLUoxetine (PROZAC) 10 MG capsule Take 10 mg by mouth once daily ??? gabapentin (NEURONTIN) 100 MG capsule 1 tab by mouth 3 times daily Reasons: Neurogenic Pain 90 capsule 5 ??? acetaminophen (TYLENOL) 160 MG/5ML solution Take 20.3 mL by mouth every 4 hours as needed for Fever or Pain 473 mL 0 ??? ibuprofen (ADVIL; MOTRIN) 100 MG/5ML suspension Take 15 mL by mouth every 6 hours as needed forPain or Fever May start using ibuprofen (ADVIL/MOTRIN) 3 days after surgery. 473 mL 0 ??? melatonin 5 MG tablet Take 10 mg by mouth at bedtime ??? Multiple Vitamin (MULTI VITAMIN DAILY PO) No current facility-administered medications for this encounter. Allergies: No Known Allergies Maternal History Former 31 week twin. Status post . No complications during or delivery. Birthweight: 3 lbs 9 oz Past Medical History: Namita has a past medical history of History of migraine headaches; ; and Twin ,mate liveborn. Past Surgical History: Naimta has a past surgical history that includes tonsillectomy and adenoidectomy (N/A, 10/06/2016). Past Hospitalizations: None Family History: There is no family history of congenital heart disease or sudden unexplained , or pacemaker requirement. Social History: Patient lives with biological parents in [place], [place]. She attends 9th grade. Physical Exam: BP 126/80 Pulse 88 Resp 20 Wt 89.8 kg (198 lb) BMI 32.99 kg/m2 FiO2: General: Comfortable in no acute distress Heent: Normocephalic. Moist and pink mucous membranes. Neck: Flat neck veins. Cardiovascular: Pulses: 2+ radial and femoral pulses with no radial/femoral delay. Capillary refill less than 2 seconds. Precordium: normoactive. Heart sounds: Regular rate and rhythm with normal S1 and S2. No systolic or diastolic murmurs, rubs, gallops, clicks appreciated. Respiratory: Unlabored breathing with no retractions noted. Clear to auscultation bilaterally. Abdomen: Soft, nontender, nondistended with no hepatomegaly. Extremities: No clubbing, cyanosis, or edema noted. Neuro: No gross anomalies noted. Skin: Clear. DIAGNOSTIC TESTS EKG January 17, 2018: Normal sinus rhythm IMPRESSION 1. Chest pain, unlikely to be cardiac, likely chest wall in etiology 2. Palpitations likely secondary to anxiety Namita is a pleasant 12-year-old young woman who has been complaining of chest pain that is unlikely to be cardiac in etiology. Her chest pain occurs predominantly at rest, is sharp in etiology, and is worse with inspiration which is classic for chest wall type pain. Her physical examination is unremarkable, as is her EKG. I explained this to her family, and they expressed understanding. Certainly if her episodes are short, she may be able to ignore these episodes. If these as episodes to last longer, she may benefit NSAID such as ibuprofen or Naprosyn. Concerning signs of chest pain would include symptoms that feel more like tightening or pressure, as well as symptoms are associated with respiratory distress, fatigue, palpitations or lightheadedness or loss of consciousness. Her palpitations are unlikely to be related to her heart. These episodes have only occurred during 1 class, her [employer] biology class for which she is having some difficulty. These episodes seem to bequite short, lasting a minute. They do seem to stop and start fairly suddenly. I provided reassurance to the family that this is most likely situational as it only occurs during this one class. Certainly if she does have longer episodes of these palpitations, and has documented heart rates greater than 170, I would be glad to re-evaluate her again. Given current evaluation, I feel this is unlikely to represent supraventricular tachycardia. At this time, no exercise restrictions are required. No endocarditis prophylaxis is required. She does not require scheduled follow-up in Pediatric Cardiology Clinic unless concerns arise PLAN 1. No exercise restrictions are required at this time. 2. It may be reasonable to ignore her chest pain. Certainly if episodes are longer, may benefit from ibuprofen or naproxen. 3. Continue to monitor episodes of palpitations which we feel to be most likely secondary to anxiety. Certainly if episodes last longer, are sustained over 170 beats per minute, This can be readdressed later and Holter monitor can be considered at that time. 4. No exercise restriction is required. 5. No scheduled followup in pediatric cardiology clinic is required at this time unless concerns arise, or for any other reason. Thank you for allowing me to participate in Namita's care. Please feel free to contact me if you have any questions or concerns. Aaron Manzano MD Clinical Adobe Developer Division of Pediatric Cardiology Department of Pediatrics [facility] APPLICATOR documented in this encounter Plan of Treatment Not on file documented as of this encounter Procedures Procedure Name Priority Date/Time Associated Diagnosis Comments CARDIAC EKG ORDER 02/01/2018 1:4 3 AM TILE APPLICATOR CARDIAC EKG ORDER 01/31/2018 7:2 8 PM TILE APPLICATOR documented in this encounter Results * CARDIAC EKG ORDER (02/01/2018 1:43 AM TILE APPLICATOR) Narrative 02/01/2018 1:43 AM TILE APPLICATOR Ordered by an unspecified provider. Scanned Document CARDIAC SERVICES ORD ERABLES * CARDIAC EKG ORDER (01/31/2018 7:28 PM TILE APPLICATOR) Narrative 01/31/2018 7:28 PM TILE APPLICATOR Ordered by an unspecified provider. Scanned Document CARDIAC SERVICES ORD ERABLES documented in this encounter Visit Diagnoses Diagnosis Palpitations- Primary documented in this encounter Care Teams Plumbing Technician Relationship Specialty Start Date End Date Mathew Garcia MD [address] [place] [address] PCP - General Pediatrics 02/29/16 05/06/24 documented as of this encounter
--- OUTSIDE RECORDS SUMMARY | 2024-11-24 14:33 | XMS_ITS | Encounter Summary ---
Author Organization [facility] Address [address] [place] [address] Care Team Providers Care Zone Manager Name Role Phone Mathew Garcia MD Primary Care Provider [phone] Reason for Visit * Reason Comments General audio-visual Headache Follow-up Encounter Details Date Type Department Care Team (Late st Contact Info) Description 06/03/2020 9:59 AM CDT - 06/03/2020 3:24 PM CDT Hospital Encounter [facility] Pediatrics - Neurology [address] [place] [address] Valencia Álvarez MD [address] [place] [id number] Social History Tobacco Use Types Packs/Day Years [...] Sign Reading Time Taken Comments Blood Pressure - - Pulse - - Temperature - - Respiratory Rate - - Oxygen Saturation - - Inhaled Oxygen Concentration - - Weight 84.8 kg (187 lb) 06/03/2020 9:49 AM CDT Height - - Body Mass Index - [...] this encounter Discharge Instructions * Patient Instructions* Valencia Álvarez MD - 06/03/2020 10:40 AM CDT Chronic daily headache Headaches are much improved form prior - though she may have some headaches several days a week, they are much milder and she does not need to take additional pain med's. Also headaches have improvedwith improvement in her mood and med changes [...] 11. Call for interim concerns or updates. documented in this encounter Medications at Time of Discharge Medication Sig Dispensed Refills Start Date End Date LORYNA 3-0.02 MG tablet TK 1 T PO QD CONTINUOUSLY 0 07/26/2019 melatonin 5 MG tablet Take 10 mg by mouth at bedtime Multiple Vitamin (MULTI VITAMIN DAILY PO) venlafaxine XR 24hr (EFFEXOR XR) 75 MG capsule 150 mg 01/21/2020 documented as of this encounter Progress Notes * Valencia Álvarez MD - 06/03/2020 10:40 AM CDT Images from the original note were not included. Telemedicine Note - Pediatric Neurology Follow Up Encounter Patient Name: Namita Reyes Date of visit: 06/03/2020 Patient Verification & Telemedicine Based Consent Today's visit was conducted virtually due to COVID-19 countermeasures. The patient/parent has givenverbal consent to have today's visit conducted by this same means with treatment provided remotely.The patient/parent verbally consents to the billing and collection practices of the provider's medical group. Patient location: Home This encounter was performed using: audio and video Time spent with patient/proxy: 25 minutes spent with pt/mom with > 50% time in discussion, counseling, management of pt's chronic headaches. Assessment & Plan Namita is a 14 year old female who has completed a telemedicine encounter regarding: Chronic daily headache Headaches are much improved form prior - though she may have some headaches several days a week, they are much milder and she does not need to take additional pain med's. Also headaches have improvedwith improvement in her mood and med changes [...] 11. Call for interim concerns or updates. Education: headaches, lifestyle modifications, medication benefits, side effects. The plan was reviewed with the patient and the patient confirmed understanding of the plan and all follow-up steps. Pt/parent understand, agree with plan, aware to call for any interim concerns. All aspects of patient's medical history were reviewed and updated as documented in Epic Subjective Chief Complaint Patient presents with ??? General audio-visual ??? Headache ??? Follow-up Interval History: pt is a 14 y/o presenting with mom via tele [employer] platform (Zoom) for follow up of her chronic daily headache - I last saw at in at which time, I discussed lifestyle modifications, and also started on Nortriptyline for headache prevention. She had previously been seen at by Dr. Luque. She has been taking the nortriptyline 10 mg at bedtime. She stated that her headaches had Started to improve even before the pandemic and lock down. In , she also had a hospitalization due to increasing depression and so was in house for a couple of weeks, when her medication were changed - she had been on Citalopram, and then is presently on Effexor and after that her mood has also much improved. She feels that since then the headache have improved even further. She gets a mild headachedaily.several times a week, but they are not disabling and she does not take any analgesics at all - she could not recall the last headache that she had to treat with additional pain med's. She has been complaint with nortriptyline and has had increased skin sensitivity to being out in the sunlightand wonders if it is related to that. Briefly, her headache history is as follows: She has been having headaches since age 7, and her headache frequency and severity had worsened over time. Her chronic daily headaches were described as 6/10 in severity, starting daily after she woke up in the morning and worse at afternoon. They were located either in left or right or both temples. She felt nauseated with some of them but has never had vomiting with them. Her bad migraine headaches happened up to three time per week, 8-10/10 in severity, had a prodrome or warning sign only a few minutes before them as either dizziness, visual glares or smells; associated with n/v, photo andphono phobia,Specimen Hemolyzed had missed school in the past. ?? She had tried Topamax up to 50 mg in 2015 but stopped taking it due to ineffectiveness. The tried gabapentin but stopped taking it after one week due to side effect (passed out in school and felt tired). Over the last few days, both mom and her have developed some fever, diarrhea, headache, cough etc -mom had exposure to a colleague who had tested positive for COVID and both of them have thus been tested, but her results are pending. Both parents and her have had symptoms but twin sister has been asymptomatic. Interim Medical History: unremarkable except as mentioned above (hospitalization for mental health in and present illness). Social History: No recent changes. No additional stressors other than related to the pandemic. Lives at home with parents and twin sister. She will be a senior this fall and did very well last year. She only has a few more credits left and will be graduating early - she wants to go away for college and is interested in pursuing psychology and Criminal Justice. She is excited about that. Review of Systems: No fever, cough, runny nose, vomiting, diarrhea or rash. A comprehensive 10 system ROS was reviewed. Pertinent positives and negatives are included in HPI or PMH. The remainder of the 10 system ROS was negative. Lifestyle: Diet: eats well - has lost some weight from last recorded weight to what she reported today - but attributes that to eating better. No symptoms suggestive of eating disorder reported Hydration/caffeine: drinks abut 2-3 bottles of water daily, no regular caffeine intake. Sleep: usually goes to bed late - around midnight, now that she is off for summer - no trouble falling asleep and sleeps through the night - wakes up by 10-11A, no snoring or sleep related restlessness. Mood: as in HPI - feeling much better now - denies any suicidal thoughts. Physical activity/screen time: limiting screen time and has been in to crafting - sewing, etc and reading books. Not very active, tries to exercise, but not consistent. Family History: No updates to family history. Medications: Current Outpatient Medications Medication Sig Dispense Refill ??? LORYNA 3-0.02 MG tablet TK 1 [...] a week then call Neurology 50 tablet 0 ??? nortriptyline (PAMELOR) 10 MG capsule Take 1 capsule by mouth at bedtime 30 capsule 1 ??? SUMAtriptan (IMITREX) 25 MG tablet Take 25 mg by mouth as needed 0 ??? venlafaxine XR 24hr (EFFEXOR XR) 75 MG capsule 150 mg No current facility-administered medications for this encounter. Allergies: No Known Allergies Physical Examination: Examination limited/modified due to tele med encounter Vital Signs: Wt 84.8 kg (187 lb) Wt Readings from Last 3 Encounters: 06/03/20 84.8 kg (187 lb) (97 %, Z= 1.84)* 10/16/19 89 kg (196 lb 3.4 oz) (98 %, Z= 2.01)* 10/01/19 89.3 kg (196 lb 13.9 oz) (98 %, Z= 2.02)* * Growth percentiles are based on [facility] (Girls, 2-20 Years) data. Ht Readings from Last 3 Encounters: 10/16/19 1.654 m (5' 5.12 ) (66 %, Z= 0.42)* 01/24/18 1.65 m (5' 4.96 ) (71 %, Z= 0.56)* 09/24/17 1.679 m (5' 6.1 ) (86 %, Z= 1.08)* * Growth percentiles are based on [facility] (Girls, 2-20 Years) data. There is no height or weight on file to calculate BMI. No height and weight on file for this encounter. 97 %ile (Z= 1.84) based on [facility] (Girls, 2-20 Years) [id number] data using vitals from 06/03/2020. No height on file for this encounter. General: well developed, well nourished. Overweight but healthy appearing. Smiling - normal mood, affect and speech. Neurological Exam: MS: awake, alert, appropriate Cranial Nerves: III,IV,: EOMI VII: Facial expressions symmetric VIII: responds to voice, follows commands IX: Palate elevates symmetrically X: Uvula midline XI: Shoulder shrug strong bilaterally XII: Tongue protrudes midline Motor: Abnormal Movements: none Bulk: normal Strength: symmetric appearing in all extremities Cerebellar: Normal FFM, KAIDEN's, no dysdiadochokinesia, steady in Romberg stance Gait: Normal toe/heel/tandem walk Labs: No results for input(s): SODIUM, POTASSIUM, CHLORIDE, CO2, BUN, CREATININE, GLUCOSE, CALCIUM in thelast 32011 hours. No results for input(s): WBC, RBC, HGB, HCT, MCV, MCH, MCHC, RDW, PLTCOUNT, BANDMANPCT, SEGMANPCT, LYMPHMANPCT, MONOMANPCT, EOSMANPCT, ATYPLYMPHMAN, METAMANPCT, MYELOMANPCT, PROMYELOMAN, BLASTMANPCT,IMMATUREPCT, PLASMAMANPCT, OTHERMANPCT, NRBC, WBCCORRECT, RBCMORPH, WBCMORPH in the last 77685 hours. No results for input(s): MAGMGDL in the last 55431 hours. No results for input(s): PHOS in the last 57982 hours. Imaging: HCT (10.01.2019): No acute intracranial CT abnormality. MRI Brain (08.17.2016): ?? 1. Normal examination of the brain without findings to explain the patient's symptoms. ?? 2. T1 isointense and T2 slightly hyperintense focus in the posterior wall of the nasopharynx which could represent an asymmetric adenoid tissue versus a Thornwaldt cyst, a polyp or a tumor. Correlation with physical examination and direct visualization is recommended. If indicated, a follow-up MRI without and with contrast or a biopsy could be performed. Valencia Álvarez MD documented in this encounter Plan of Treatment Not on file documented as of this encounter Visit Diagnoses Diagnosis Chronic daily headache- Primary Headache * Assessment & Plan Note - Valencia Álvarez MD - 06/03/2020 2:32 PM CDTAssociated Problem(s): Chronic daily headache Headaches are much improved form prior - though she may have some headaches several days a week, they are much milder and she does not need to take additional pain med's. Also headaches have improvedwith improvement in her mood and med changes [...] 11. Call for interim concerns or updates. documented in this encounter Care Teams Zone Manager Relationship Specialty Start Date End Date Mathew Garcia MD [address] [place] [address] PCP - General Pediatrics 02/29/16 05/06/24 documented as of this encounter
--- OUTSIDE RECORDS SUMMARY | 2024-11-24 14:33 | XMS_ITS | Encounter Summary ---
Author Organization [facility] Address [address] [place] [address] Care Team Providers Care Tool Repairer Name Role Phone Mathew Garcia MD Primary Care Provider [phone] Encounter Details Date Type Department Care Team (Latest Contact Info) Description 01/18/2018 7:41 AM TUGGER OPERATOR - 01/18/2018 11:59 PM [facility] Hospital Encounter [facility] at [address] [address] Fatemeh Wallace MD [address] [place] [address] Discharge Disposition: Home or Self Care Social [...] Fever or Pain 473 mL 10/06/2016 10/16/2019 gabapentin (NEURONTIN) 100 MG capsuleIndications:Ne urogenic Pain (Inactive) 1 tab by mouth 3 times daily Reasons: Neurogenic Pain 90 capsule 5 09/24/2017 06/03/2020 ibuprofen (ADVIL; MOTRIN) 100 MG/5ML suspension Take 15 mL by mouth every 6 hours as needed for Pain or Fever May start using ibuprofen (ADVIL/MOTRIN) 3 days after surgery. 473 mL 10/09/2016 10/01/2019 documented as of this encounter Plan of Treatment Not on file documented as of this encounter Visit Diagnoses Diagnosis Chest pain, unspecified type documented in this encounter Care Teams Tool Repairer Relationship Specialty Start Date End Date Mathew Garcia MD [address] [place] [phone] PCP - General Pediatrics 02/29/16 05/06/24 documented as of this encounter
--- OUTSIDE RECORDS SUMMARY | 2024-11-24 14:33 | XMS_ITS | Encounter Summary ---
Author Organization [facility] Address [address] [place] [address] Care Team Providers Care Stunt Driver Name Role Phone Mathew Garcia MD Primary Care Provider [phone] Vianey Cabral MD Unavailable [phone] Reason for Visit * Reason Comments Nurse Only Pre-op Clearance Covid testing Encounter Details Date Type Department Care Team (Latest Contact Info) Description 04/20/2021 2:10 PM CDT - 04/20/2021 2:51 PM CDT Hospital Encounter [facility] [address] [place] [address] [address] Vianey Cabral MD [address] [place] [id number] Jeimy Norton RN Discharge Disposition: Home or Self Care Social [...] Frequency of Binge Drinking Not on file 01/1 11/2020 Sex and Gender Information Value Date Recorded Sex Assigned at Female 06/14/2021 11:35 AM CDT Gender Identity Female 06/14/2021 11:35 AM CDT Sexual Orientation Not on file documented as of this encounter Last Filed Vital Signs Vital Sign Reading Time Taken Comments Blood Pressure - - Pulse - - Temperature 36.7 ??C (98 ??F) 04/20/2021 2:14 PM CDT Respiratory Rate - - Oxygen Saturation - - Inhaled Oxygen Concentration - - Weight - - Height - - Body Mass Index - [...] this encounter Discharge Instructions * Patient Instructions* Jeimy Norton RN - 04/20/2021 2:15 PM CDT Pt here for nurse only, pre-op COVID-19 swab.Pain assessment completed.Temperature taken, pt is afebrile. Patient asymptomatic.Appropriate isolation procedures followed. COVID-19 swab( lab [id number]) collected, labeled and sent to lab for processing. Discharge instructions include self isolate until day of surgery/procedure, monitor for post swab soreness or bleeding. Guardian verbalizes understanding of discharge instructions. documented in this encounter Medications at Time of Discharge Medication Sig Dispensed Refills Start Date End Date docusate sodium (COLACE) 100 MG capsuleIndications:Ab dominal pain, generalized Take 1 capsule by mouth [...] 12/06/2020 06/23/2021 documented as of this encounter Progress Notes * Jeimy Norton RN - 04/20/2021 2:14 PM CDT .Pt here for nurse only, pre-op COVID-19 swab.Pain assessment completed.Temperature taken, pt is afebrile. Patient asymptomatic.Appropriate isolation procedures followed. COVID-19 swab( lab [id number]) collected, labeled and sent to lab for processing. Discharge instructions include self isolate until da y of surgery/procedure, monitor for post swab soreness or bleeding. Guardian verbalizes understanding of discharge instructions. documented in this encounter Plan of Treatment Not on file documented as of this encounter Procedures Procedure Name Priority Date/Time Associated Diagnosis Comments SARS-COV2 (COVID-19) PANEL (STL) Routine 04/20/2021 2:18 PM CDT Pre-op testing SARS-COV-2 (COVID-19) IN HOUSE Routine 04/20/2021 2:18 PM CDT Pre-op testing documented in this encounter Results * SARS-COV-2 (COVID-19) IN HOUSE (04/20/2021 2:18 PM CDT) COVID-19 PCR Not detected Not detected 04/20/2021 11:53 PM CDT [facility] Microbiology SPECIMEN FROM NASOPHARYNGEAL STRUCTURE / Unknown Collection / Unknown 04/20/2021 2:18 PM CDT 04/20/2021 2:18 PM CDT Narrative [facility] - 04/20/2021 11:53 PM CDT This nucleic acid amplification assay performance was validated by [facility]. This test has been authorized by the Food and Drug administration (FDA)under an Emergency??Use Authorization (EUA). This test has been validated in accordance with the FDA's guidance document Policy for Diagnostic Testing in Laboratories Certified to perform High Complexity Testing under CLIA prior to Emergency Use Authorization for Coronavirus Disease-2019 during the Public Health Emergency issued on January 24, 2020. FDA independent review of this validation is pending. This test is only authorized for the duration of time the declaration that circumstances exist justifying the authorization of emergency use of in vitro diagnostic tests for detection of SARS-CoV-2 virus and/or diagnosis of COVID-19 infection under section 564(b)(1) of the Act, 21 U.S.C 360bbb-3 (b)(1), unless the authorization is terminated or revoked sooner. Fact Sheets for this EUA assay are available upon request. Vianey Cabral MD LAB - MICROBIOLOGY [facility] [address] [place], [place] [address] [phone] documented in this encounter Visit Diagnoses Diagnosis Pre-op testing Preoperative examination, unspecified documented in this encounter Additional Health Concerns Infection Onset Date Last Indicated Resolved Time COVID-19 Under Investigation 04/20/2021 04/20/2021 04/20/2021 11:53 PM CDT documented as of this encounter Care Teams Stunt Driver Relationship Specialty Start Date End Date Mathew Garcia MD [address] [place] [address] PCP - General Pediatrics 02/29/16 05/06/24 Vianey Cabral MD [address] [place] [address] Pediatric Gastroenterology 12/06/20 documented as of this encounter
--- OUTSIDE RECORDS SUMMARY | 2024-11-24 14:33 | XMS_ITS | Encounter Summary ---
Author Organization [facility] Address [address] [facility] [place] [address] Care Team Providers Care Deputy Director Of Finance Name Role Phone Mathew Garcia MD Primary Care Provider [phone] Vianey Cabral MD Unavailable Encounter Details Date Type Department Care Team (Latest Contact Info) Description 12/06/2020 Travel Social History Tobacco Use Types Packs/Day Years [...] COVID-19? Unable to assess 12/06/2020 1:59 PM [employer] documented as of this encounter Functional Status [...] on filedocumented in this encounter Care Teams Deputy Director Of Finance Relationship Specialty Start Date End Date Mathew Garcia MD [address] [place] [address] [place] [address] PCP - General Pediatrics 02/29/16 05/06/24 Vianey Cabral MD [address] [place] [address] Pediatric Gastroenterology 12/06/20 documented as of this encounter
--- OUTSIDE RECORDS SUMMARY | 2024-11-24 14:33 | XMS_ITS | Encounter Summary ---
Author Organization [facility] Address [address] [facility] [place] [address] Care Team Providers Care Guide Alpine Name Role Phone Mathew Garcia MD Primary Care Provider [phone] Vianey Cabral MD Unavailable [phone] Reason for Visit * Reason Comments Pain Abdominal Encounter Details Date Type Department Care Team (Latest Contact Info) Description 12/06/2020 1:00 PM HAND TOOL FILER - 12/06/2020 3:37 PM HAND TOOL FILER Hospital Encounter [facility] - [address] [facility] [place] [address] Vianey Cabral MD [address] [place] [address] Discharge Disposition: Home or Self Care Social [...] COVID-19? Unable to assess 12/06/2020 1:59 PM HAND TOOL FILER documented as of this encounter Last Filed Vital Signs Vital Sign Reading Time Taken Comments Blood Pressure 128/82 12/06/2020 1:09 PM HAND TOOL FILER Pulse - - Temperature - - Respiratory Rate - - Oxygen Saturation - - Inhaled Oxygen Concentration - - Weight 88.5 kg (195 lb 1.7 oz) 12/06/2020 1:09 P M HAND TOOL FILER Height 166.9 cm (5' 5.71 ) 12/06/2020 1:09 PM CS T Body Mass Index 31.77 12/06/2020 1:09 PM HAND TOOL FILER Body Mass Index Percentile 96.06% 12/06/2020 1:0 9 PM HAND TOOL FILER Growth Chart: [facility] [...] this encounter Discharge Instructions * Patient Instructions* Vianey Cabral MD - 12/06/2020 1:46 PM HAND TOOL FILER Images from the original note were not included. I suspect Namita has constipation-irritable bowel syndrome (c-IBS). This is bothersome but not dangerous There are both medication and non-medication ways to help with this See handout on low FODMAP diet (certain carbohydrates that may trigger symptoms) Also can utilize cognitive behavioral therapy with Our psychologists. Call our office if you would like a referral Other possiblities including Eosinophilic Esophagitis (a special type of food allergy in esophagus), H. Pylori ulcer (a certain bacteria that is associated with stomach irritation that is treated differently than acid najma alone), celiac disease. An upper scope can help diagnose this. This wouldinvolve a short period of time under general anesthesia. Call our office if you would like to pursue this In the meantime, stay on nortriptyline (we may need to increase dose) and incresae Miralax. Can also take the colace as prescribed as stool softener to treat constipation component I will review labs done by her extrusion die repairer Abdominal Pain Namita was evaluated for chronic recurrent abdominal pain. The most common reason for chronic recurrent abdominal pain is a type of functional GI disorder . This is common, bothersome, but not dangerous cause of recurrent abdominal pain in kids. We have both medication and non-medication ways to help with this. Please refer to your After Visit Summary for any information regarding additional studies or prescribed medications that may have been ordered. Functional Abdominal Pain in Children What is functional abdominal pain, and why does it happen? Most otherwise-healthy children who repeatedly complain of stomachaches for two months or more havefunctional abdominal pain. The term ???functional?? refers to the fact that there is no blockage, inflammation or infection causing the discomfort. Nevertheless, the pain is very real, and is due toextra sensitivity of the digestive organs, sometimes combined with changes in gastrointestinal movement patterns. Your child???s intestine has a complicated system of nerves and muscles that helps move food forward and carry out digestion. In some children, the nerves become very sensitive, and pain is experienced even during normal intestinal functions. The pain can cause your child to cry, makehis/her face pale or red, and cause him/her to break into a sweat. This digestive tract sensitivitycan be triggered by a variety of things, such as a viral or bacterial infection, stress, or an episode of constipation. Other family members may have a history of similar problems. Because of the pain, children often stop their usual school and play activities. Fortunately, despite the recurrent episodes of pain, normal growth and general good health continue. How common is functional abdominal pain? Functional abdominal pain is very common. About 10-15% of school aged children will report episodesrecurrent pain. Another 15% experience pain, but do not go to the doctor for it. How is functional abdominal pain diagnosed? A detailed history of how the pain started, how it progressed, its location, and other associated factors can often suggest a diagnosis of functional pain. In functional pain, growth is good and the physical exam is normal. Basic blood, urine and stool tests are often performed to screen for other conditions that can cause recurrent pain. X-rays, other imaging studies, extensive lab tests and endoscopy are only recommended for children whose history, exam or basic lab results don???t fit with the diagnosis of functional pain. Your doctor will also follow your child to see if any changes take place which would suggest a different problem. How is functional abdominal pain treated? You, your doctor and your child can partner to put you and your child, rather than the pain, back in charge of your child???s life. Identifying and managing your child???s pain triggers, such as constipation, stress or lactose intolerance often helps reduce the pain. Also, with your help your childcan learn to avoid focusing on the pain. There are a variety of specific actions for handling pain episodes, such as breathing techniques, that can be taught to your child. As a parent wanting to know if your child is having pain, a good approach is to observe your child???s behavior rather than asking if he/she is in pain. It is important to prevent the pain from becoming a reason for missing school, changing your child???s social activities or becoming the center of everyone???s attention at home. Even when the pain persists, it is reassuring to learn that this is a known condition, and that it is not dangerous. Being positive about getting better will send the right signals to your child. Medications may be helpful for some children with functional abdominal pain. These and other specif ic approaches suitable for your child can be discussed with your physician. IMPORTANT REMINDER: This information from the [place] [employer] Pediatric Gastroenterology, Hepatology and Nutrition (NASPGHAN) is intended only to provide general information and not as a definitive basis for diagnosis or treatment in any particular case. It is very important that you consult your doctor about your specific condition. [address], [place] [address] [email or web address] TOOL FILER documented in this encounter Medications at Time [...] XR) 75 MG capsule 150 mg 01/21/2020 omeprazole (PRILOSEC) 20 MG capsule Take 20 mg by mouth once daily 12/03/2020 03/10/2021 documented as of this encounter Progress Notes * Vianey Cabral MD - 12/06/2020 1:16 PM CST Images from the original note were not included. CHIEF COMPLAINT: Pain Abdominal Namita Reyes was seen in the Pediatric GI clinic accompanied by his in consultation at request of her or PCP Mathew Garcia MD HISTORY: Namita is a 15 year old female who presents with abdominal pain. . History is obtained from my review of available records in EMR, Namita and her father Namita has had issues with abdominal pain for many years. She often has nausea with abdominal pain.She has had occsaionl vomiting. No obviosu sick contacts associated with occasional vomiting. Taking PPI w/o obvious improvements. ON questioning, she reports tendency to constipation. Sense of incomplete defecation. Stools infrequently - few times per week. Generally hard in caliber. Often sensation of distension. No unexplained weight loss. She taqkes notriptyline for migraine headache and is being treated for depression. When she has abdoinal pain, often has headache as well Had lab workup by PCP in fall 2018, which family reports were normal. OUr office has requested records to review. PAST MEDICAL HISTORY: Namita's past medical history includes: Past Medical History: Diagnosis Date ??? History of migraine headaches ??? 31 weeks gestation- NICU for 17 days-twin ??? Twin , mate liveborn twin sister PAST SURGICAL HISTORY: Namita's past surgical history includes: Past Surgical History: Procedure Laterality Date ??? Tonsillectomy and Adenoidectomy N/A 10/06/2016 N/A; TONSILLECTOMY AND ADENOIDECTOMY, RIGHT REMOVAL OF MASS (NASOPHARYNX CYST) SOCIAL HISTORY: Social History Social History Narrative Namita lives at home with her parents and twin sibling FAMILY HISTORY: No family history on file. No family history of Crohn's disease, Ulcerative colitis or celiac disease REVIEW OF SYSTEMS is negative for fever, weight loss, mouth sores, joint pains or rashes. The remainder of the 14 point review of systems is as stated in HPI or otherwise egative. CURRENT MEDICATIONS: Current Outpatient Medications Medication Sig Dispense Refill ??? docusate sodium [...] bedtime 30 capsule 5 ??? omeprazole (PRILOSEC) 20 MG capsule Take 20 mg by mouth once daily ??? venlafaxine XR 24hr (EFFEXOR XR) 75 MG capsule 150 mg No current facility-administered medications for this encounter. PHYSICAL EXAM: BP 128/82 Ht 1.669 m (5' 5.71 ) Wt 88.5 kg (195 lb 1.7 oz) BMI 31.77 kg/m2 General: Healthy, alert, well nourished Head: Normocephalic, atraumatic Eyes: No scleral icterus, no injection Mouth: Moist mucus membranes, no oral ulcers Neck: No lymphadenopathy Heart: Regular rate and rhythm, no murmur Lungs: Clear to auscultation bilaterally Abdomen: soft, nontender, nondistended, no Hepatosplenomegaly Rectal: deferred Extremities: warm and well perfused, no joint swelling Neuro: No facial asymmetry, normal tone, normal gait RESULTS OUr office has requested resulst from labs obtained in fall 2018 IMPRESSION: 15 year old female with recurrent abdominal pain assciated with constipation. She also has frequent nausea despite PPI She meets several JAELYN criteria for pediatric c-IBS Also with upper tract symptoms Many considerations,particularly within FGID including but not limited to c-IBS, functional dyspepis Also consider mucosal pathologies - EoE, H. Pylori ulcer PLAN: Orders Placed This Encounter ??? docusate sodium (COLACE) 100 MG capsule Sig: Take 1 capsule by mouth 2 times daily as needed for Constipation Dispense: 60 capsule Refill: 3 Patient Instructions I suspect Namita has constipation-irritable bowel syndrome (c-IBS). This is bothersome but not dangerous There are both medication and non-medication ways to help with this See handout on low FODMAP diet (certain carbohydrates that may trigger symptoms) Also can utilize cognitive behavioral therapy with Our psychologists. Call our office if you would like a referral Other possiblities including Eosinophilic Esophagitis (a special type of food allergy in esophagus), H. Pylori ulcer (a certain bacteria that is associated with stomach irritation that is treated differently than acid najma alone), celiac disease. An upper scope can help diagnose this. This wouldinvolve a short period of time under general anesthesia. Call our office if you would like to pursue this In the meantime, stay on nortriptyline (we may need to increase dose) and incresae Miralax. Can also take the colace as prescribed as stool softener to treat constipation component I will review labs done by her extrusion die repairer Abdominal Pain Namita was evaluated for chronic recurrent abdominal pain. The most common reason for chronic recurrent abdominal pain is a type of functional GI disorder . This is common, bothersome, but not dangerous cause of recurrent abdominal pain in kids. We have both medication and non-medication ways to help with this. Please refer to your After Visit Summary for any information regarding additional studies or prescribed medications that may have been ordered. Functional Abdominal Pain in Children What is functional abdominal pain, and why does it happen? Most otherwise-healthy children who repeatedly complain of stomachaches for two months or more havefunctional abdominal pain. The term ???functional?? refers to the fact that there is no blockage, inflammation or infection causing the discomfort. Nevertheless, the pain is very real, and is due toextra sensitivity of the digestive organs, sometimes combined with changes in gastrointestinal movement patterns. Your child???s intestine has a complicated system of nerves and muscles that helps move food forward and carry out digestion. In some children, the nerves become very sensitive, and pain is experienced even during normal intestinal functions. The pain can cause your child to cry, makehis/her face pale or red, and cause him/her to break into a sweat. This digestive tract sensitivitycan be triggered by a variety of things, such as a viral or bacterial infection, stress, or an episode of constipation. Other family members may have a history of similar problems. Because of the pain, children often stop their usual school and play activities. Fortunately, despite the recurrent episodes of pain, normal growth and general good health continue. How common is functional abdominal pain? Functional abdominal pain is very common. About 10-15% of school aged children will report episodesrecurrent pain. Another 15% experience pain, but do not go to the doctor for it. How is functional abdominal pain diagnosed? A detailed history of how the pain started, how it progressed, its location, and other associated factors can often suggest a diagnosis of functional pain. In functional pain, growth is good and the physical exam is normal. Basic blood, urine and stool tests are often performed to screen for other conditions that can cause recurrent pain. X-rays, other imaging studies, extensive lab tests and endoscopy are only recommended for children whose history, exam or basic lab results don???t fit with the diagnosis of functional pain. Your doctor will also follow your child to see if any changes take place which would suggest a different problem. How is functional abdominal pain treated? You, your doctor and your child can partner to put you and your child, rather than the pain, back in charge of your child???s life. Identifying and managing your child???s pain triggers, such as constipation, stress or lactose intolerance often helps reduce the pain. Also, with your help your childcan learn to avoid focusing on the pain. There are a variety of specific actions for handling pain episodes, such as breathing techniques, that can be taught to your child. As a parent wanting to know if your child is having pain, a good approach is to observe your child???s behavior rather than asking if he/she is in pain. It is important to prevent the pain from becoming a reason for missing school, changing your child???s social activities or becoming the center of everyone???s attention at home. Even when the pain persists, it is reassuring to learn that this is a known condition, and that it is not dangerous. Being positive about getting better will send the right signals to your child. Medications may be helpful for some children with functional abdominal pain. These and other specif ic approaches suitable for your child can be discussed with your physician. IMPORTANT REMINDER: This information from the [place] [employer] Pediatric Gastroenterology, Hepatology and Nutrition (NASPGHAN) is intended only to provide general information and not as a definitive basis for diagnosis or treatment in any particular case. It is very important that you consult your doctor about your specific condition. NICO[place]E, [address], [place] [address] [employer] Plan of care, including education on the safe and effective use of medication(s) and/or medical equipment if prescribed, was discussed with the family. They verbalized understanding and agreed with the treatment options discussed. 12/06/2020 2:29 PM TOOL FILER documented in this encounter Plan of Treatment Not on file documented as of this encounter Visit Diagnoses Diagnosis Abdominal pain, generalized- Primary documented in this encounter Care Teams Guide Alpine Relationship Specialty Start Date End Date Mathew Garcia MD [address] [place] [id number] PCP - General Pediatrics 02/29/16 05/06/24 Vianey Cabral MD [address] [place] [address] Pediatric Gastroenterology 12/06/20 documented as of this encounter
--- OUTSIDE RECORDS SUMMARY | 2024-11-24 14:33 | XMS_ITS | Encounter Summary ---
Author Organization [facility] Address [address] [place] [address] Care Team Providers Care Retail Sales Consultant Name Role Phone Mathew Garcia MD Primary Care Provider [phone] Vianey Cabral MD Unavailable [phone] Reason for Referral * Procedure (Routine) - Closed Specialty Diagnoses / Procedures Referred By Mercedez perez Referred To Contact Gastroenterology Diagnoses Abdominal pain, generalized Procedures EGD Vianey Cabral MD [address] [place] [id number] Referral ID Status Reason Start Date Expiration Date Visits Re quested Visits Authorized [id number] Closed 02/25/2021 02/25/2022 1 1 Reason for Visit * Reason Onset Date Comments Procedure 02/25/2021 Encounter Details Date Type Department Care Team (Late st Contact Info) Description 02/25/[address] [facility] - GI [address] [place] [address] Vianey Cabral MD [address] [place] [id number] Procedure Social History Tobacco Use Types Packs/Day Years [...] encounter Miscellaneous Notes * Telephone Encounter - Angie Lopez RN - 03/10/2021 10:38 AM CDT Verified orders and date/time. Prep letter given in clinic. * Telephone Encounter - Rhoda Merida - 03/10/2021 10:25 AM CDT Spoke with Elidia in the clinic, schedule EGD for 04/22/2021 @ 1:[address] Cabral. * Telephone Encounter - Sherrill Adorno RN - 02/25/2021 12:55 PM CDT EGD orders entered. * Telephone Encounter - Vianey Cabral MD - 02/25/2021 12:49 PM CDT Saira was going to call our office if they wanted to pursue upper scope to look for EoE. (its buried in patient instructions) Ok to with me to schedule * Telephone Encounter - Rhoda Merida - 02/25/2021 12:39 PM CDT Mom left a message to schedule the patient's procedure. No orders in Epic. documented in this encounter Plan of Treatment Not on file documented as of this encounter Results * EGD (04/22/2021 11:08 AM CDT) Report Endoscopy POC _ Patient Name: Namita Reyes ?Procedure Date: 04/22/2021 11:08 AM ?Date of : 2005 Admit Type: Outpatient ?Age: 15 Gender: Female ?Race: White Attending MD: Vianey Cabral , ?Order #: [id number] _ Procedure: ? Upper GI endoscopy Indications: [...] Procedure Code(s): ? --- Professional --- ? 42653, Esophagogastrodu odenoscopy, flexible, transoral; with biopsy, ? single or multiple ? --- Technical --- ? 56566, Esophagogastrodu odenoscopy, flexible, transoral; with biopsy, ? single or multiple Diagnosis Code(s): ? --- Professional --- ? K31.89, Other diseases of stomach and duodenum ? R10.84, Generalized abdominal pain ? --- Technical --- ? K31.89, Other diseases of stomach and duodenum ? R10.84, Generalized abdominal pain CPT copyright 2019 [employer]. All rights reserved. The codes documented in this report are preliminary and upon php software engineer review may be revised to meet current compliance requirements. Dr. Vianey Cabral Vianey Cabral, 04/22/2021 8:43:25 AM This report has been signed electronically. Number of Addenda: 0 Note Initiated On: 04/21/2021 11:08 AM Procedure Date: ? 04/22/2021 11:08:00 AM ? This report has been signed electronically. [facility] 04/22/2021 11:0 8 AM CDT Vianey Cabral MD GI PROCEDURE ORDERAB LES Performing Organization Address City/[facility]/ZIP Co de Phone Number [facility] [address] [place] [address] * HELICOBACTER PYLORI UREASE (STL) (04/22/2021 8:36 AM CDT) Helicobacter pylori Urease Initial Negative Negative 04/23/2021 11:15 AM CDT [facility] Helicobacter pylori Urease Final Negative Negative 04/23/2021 11:15 AM CDT [facility] Microbiology GASTRIC BIOPSY SPECIMEN / Unknown Collection / Unknown 04/22/2021 8:36 AM CDT 04/22/2021 8:53 AM CDT Vianey Cabral MD LAB - MICROBIOLOGY O RDERABLES Performing Organization Address City/[facility]/ZIP Co de Phone Number [facility] [address] [place] [address], [facility] [phone] documented in this encounter Visit Diagnoses Diagnosis Abdominal pain, generalized- Primary documented in this encounter Care Teams Retail Sales Consultant Relationship Specialty Start Date End Date Mathew Garcia MD [address] [place] [address] PCP - General Pediatrics 02/29/16 05/06/24 Vianey Cabral MD [address] [place] [address] Pediatric Gastroenterology 12/06/20 documented as of this encounter
--- OUTSIDE RECORDS SUMMARY | 2024-11-24 14:33 | XMS_ITS | Encounter Summary ---
Author Organization [facility] Address [address] [place] [address] Care Team Providers Care Dialer Name Role Phone Mathew Garcia MD Primary Care Provider [phone] Encounter Details Date Type Department Care Team (Latest Contact Info) Description 10/12/2020 Travel Social History Tobacco Use Types Packs/Day [...] have Coronavirus / COVID-19? 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
--- OUTSIDE RECORDS SUMMARY | 2024-11-24 14:33 | XMS_ITS | Encounter Summary ---
Author Organization [facility] Address [address] [facility] [place] [address] Care Team Providers Care Rail Operator Name Role Phone Mathew Garcia MD Primary Care Provider [phone] Encounter Details Date Type Department Care Team (Latest Contact Info) Description 05/28/2020 Travel Social History Tobacco Use Types Packs/Day [...] AM CDT documented as of this encounter Functional Status [...] on filedocumented in this encounter Care Teams Rail Operator Relationship Specialty Start Date End Date Mathew Garcia MD [address] [place] [phone] PCP - General Pediatrics 02/29/16 05/06/24 documented as of this encounter
--- OUTSIDE RECORDS SUMMARY | 2024-11-24 14:33 | XMS_ITS | Encounter Summary ---
Author Organization [facility] Address [address] [place] [address] Care Team Providers Care Automatic Corn Grinder Operator Name Role Phone Mathew Garcia MD Primary Care Provider [phone] Reason for Visit * Reason Onset Date Comments Update 07/23/2020 Encounter Details Date Type Department Care Team (Late st Contact Info) Description 07/23/2020 Refill [facility] - Neurology [address] [place] [id number] Valencia Álvarez MD [address] [place] [id number] Update Social History Tobacco Use Types Packs/Day [...] Telephone Encounter - Karmen Lora RN - 08/03/2020 10:34 AM CDT Attempted to call mother for a second time unable to reach left detailed message and instructed mother to call office back should she need any further clarification. Closing this encounter. * Telephone Encounter - Karmen Lora RN - 07/26/2020 9:35 AM CDT Attempted to call mother back to discuss Dr. Álvarez's recommendations. Left detailed voice message with Dr. Álvarez's recommendations to restart the nortriptyline 10 mg capsule once daily at bedtime and that the prescription will be sent to preferred pharmacy on file. Dr. Álvarez, Rx pended and forwarded for signature. Please review, sign, and route to sender. * Telephone Encounter - Valencia Álvarez MD - 07/23/2020 3:29 PM CDT In view of increased headaches, can restart nortriptyline 10 mg HS. Follow other lifestyle modifications and limit analgesic intake to no more than 2-3 times a week. * Telephone Encounter - Karmen Lora RN - 07/23/2020 2:27 PM CDT Mother called and lvm explaining that they saw Dr. Álvarez about 1.5 months ago and she took off a medication and was told to call with any issues. Mother reports Namita has been having headaches every day since and wants to know what to do? Go back on medication? Called mother back. Mother explained that after the 06/03/20 appointment Namita stopped taking the nortriptyline 10 mg at bedtime per Dr. Álvarez's instructions. Mother explained that Namita has had a daily headache since. Mother reports that the headaches are pretty bad 6-7 out of a scale of 10. Sometimes making her cry in pain, she has been napping more, and hard to be active due to the pain. Life Style Modifications: Hydration: Mother reports that Namita is drinking water well and she avoids caffiene Sleep: Mother reports Namita gets 8 hrs of sleep a night. Screen time: Namita has online schooling 7:30 until 12:30 everyday. Mother tries limit screen time outside of school. Mother reports 1-2 hours of screen time outside of school work. Activity: Mother reports that Namita is less active lately because of non-stop headaches but explained that Namita will but will walk dog everyday. Diet: Mother reports that Namita only skips meals if she is really having a bad headache that is making her so sick she can't eat. Stress: Mother reports that Namita is seeing a counselor every week although this might change because of insurance changes may have to see less frequent on outpatient basis. Mother also reports thatNamita sees a psychiatrist every couple of months. Mother reports that Namita doesn't take tylenol or ibuprofen due to it not helping her headaches. Mother explained that once in a while Namita will try a naproxen along with a tylenol PM before bedtime but this too hasn't been very effective in controlling her headaches. Dr. Álvarez, Please advise. Would you like to restart the nortriptyline ? documented in this encounter Plan of Treatment Not on file documented as of this encounter Visit Diagnoses Not on filedocumented in this encounter Care Teams Automatic Corn Grinder Operator Relationship Specialty Start Date End Date Mathew Garcia MD [address] [place] [phone] PCP - General Pediatrics 02/29/16 05/06/24 documented as of this encounter
--- OUTSIDE RECORDS SUMMARY | 2024-11-24 14:33 | XMS_ITS | Encounter Summary ---
Author Organization [facility] Address [address] [facility] [place] [address] Care Team Providers Care Automotive Parts Specialist Name Role Phone Mathew Garcia MD Primary Care Provider [phone] Vianey Cabral MD Unavailable [phone] Reason for Visit * Reason Comments General video Follow-up A little better sin e last visit. 3 headaches per week Encounter Details Date Type Department Care Team (Latest Contact Info) Description 06/14/2021 11:40 AM CDT - 06/14/2021 11:59 PM CDT Hospital Encounter [facility] - Neurology [address] [place] [address] Valencia Álvarez MD [address] [place] [address] Discharge Disposition: Home or Self Care Social [...] - Inhaled Oxygen Concentration - - Weight 89.4 kg (197 lb) 06/14/2021 10:47 AM CDT Height - - Body Mass [...] 04/22/2021 documented as of this encounter Discharge Instructions * Patient Instructions* Valencia Álvarez MD - 06/14/2021 11:59 PM CDT Chronic daily headache Chronic daily headaches have much improved and she is doing well. Continue with lifestyle modification (diet, hydration, sleep regimen, physical activity, limiting screen time, addressing mood/stressors etc). Stop Nortriptyline. Call for any worsening or change in headaches or other neurological concerns. Can follow up with Neurology as needed - can also transition to adult neurology if needed after sheturns 16 y next month. documented in this encounter Medications at Time [...] Progress Notes * Valencia Álvarez MD - 06/14/2021 11:36 AM CDT Images from the original note were not included. Telemedicine Note - Pediatric Neurology Follow Up Encounter Patient Name: Namita Reyes Date of visit: 06/14/2021 Patient Verification & Telemedicine Based Consent Today's visit was conducted virtually due to COVID-19 countermeasures. The patient has given verbalconsent to have today's visit conducted by this same means with treatment provided remotely. The patient verbally consents to the billing and collection practices of the provider's medical group. Patient location: Home This encounter was performed using: audio and video Time spent with patient/proxy: 30 minutes spent with pt/mom with > 50% time in discussion, counseling, management of pt's ICD-10-CM 1. Chronic daily headache R51.9 Assessment & Plan Namita is a 15 year old female who has completed a telemedicine encounter regarding: Chronic daily headache Chronic daily headaches have much improved and she is doing well. Continue with lifestyle modification (diet, hydration, sleep regimen, physical activity, limiting screen time, addressing mood/stressors etc). Stop Nortriptyline. Call for any worsening or change in headaches or other neurological concerns. Can follow up with Neurology as needed - can also transition to adult neurology if needed after sheturns 16 y next month. Education: headaches The plan was reviewed with the patient and the patient confirmed understanding of the plan and all follow-up steps. Pt/parent understand, agree with plan, aware to call for any interim concerns. All aspects of patient's medical history were reviewed and updated as documented in Epic Subjective Chief Complaint Patient presents with ??? General video ??? Follow-up A little better since last visit. 3 headaches per week Interval History: pt is an almost 16 y/o presenting with mom (historian) via tele [employer] platform([employer]) for follow up of her chronic headaches - I last saw her in clinic in at which time, I continued her on the nortriptyline that she had been taking fr headache prevention (and also to help with her GI symptoms). She states that she has continued ot do well and headaches are much improved and she has not had any significant headaches for the past couple of months. She gets milder headaches about 2 times a week that she may or may not take any analgesics for. Her GI symptoms have also much improved. She has not been taking her nortriptyline for past several weeks. Interim Medical History: unremarkable. Continues to be on Effexor for mood an dis doing well, no concerns reported. Social History: No recent changes. graduated from high school in and is now looking for a job - intends ot go to college in the spring and wants ot learn psychology. Review of Systems: No fever, cough, runny nose, vomiting, diarrhea or rash. A comprehensive 10 system ROS was reviewed. Pertinent positives and negatives are included in HPI or PMH. The remainder of the 10 system ROS was negative. Lifestyle: Diet: eats well, does not miss meals Hydration/caffeine: tries to stay well hydrated, avoids caffeine Sleep: has a set routine - usually sleeps fr about 10-12 hours nightly. No snoring or other sleep related concerns. Mood: as noted above, doing well.. Physical activity/screen time: No regular exercise. Gets a fair about of screen time. Family History: No updates to family history. [...] to tele med encounter Vital Signs: Wt 89.4 kg (197 lb) Wt Readings from Last 3 Encounters: 06/14/21 89.4 kg (197 lb) (97 %, Z= 1.94)* 04/22/21 89.8 kg (197 lb 15.6 oz) (98 %, Z= 1.96)* 03/10/21 90.5 kg (199 lb 8.3 oz) (98 %, Z= 1.98)* * Growth percentiles are based on CDC (Girls, 2-20 Years) data. Ht Readings from Last 3 Encounters: 04/22/21 1.67 m (5' 5.75 ) (73 %, Z= 0.60)* 03/10/21 1.676 m (5' 5.98 ) (76 %, Z= 0.70)* 12/06/20 1.695 m (5' 6.73 ) (84 %, Z= 1.00)* * Growth percentiles are based on CDC (Girls, 2-20 Years) data. There is no height or weight on file to calculate BMI. No height and weight on file for this encounter. 97 %ile (Z= 1.94) based on CDC (Girls, 2-20 Years) teblop-qls-iam data using vitals from 06/14/2021. No height on file for this encounter. General: well developed, well nourished. Pleasant, cooperative, overweight. Neurological Exam: MS: awake, alert, appropriate - normal speech. Cranial Nerves: III,IV,: EOMI VII: Facial expressions symmetric VIII: responds to voice, follows commands IX: Palate elevates symmetrically X: Uvula midline XI: Shoulder shrug strong bilaterally XII: Tongue protrudes midline Motor: Abnormal Movements: none Bulk: normal Strength: symmetric appearing in all extremities Cerebellar: Normal FFM, KAIDEN's, no dysdiadochokinesia, steady in Romberg stance Gait: Normal toe/heel/tandem walk Normal neck movements. Labs: No results for input(s): SODIUM, POTASSIUM, CHLORIDE, CO2, BUN, CREATININE, GLUCOSE, CALCIUM in thelast 39688 hours. No results for input(s): WBC, RBC, HGB, HCT, MCV, MCH, MCHC, RDW, PLTCOUNT, BANDMANPCT, SEGMANPCT, LYMPHMANPCT, MONOMANPCT, EOSMANPCT, ATYPLYMPHMAN, METAMANPCT, MYELOMANPCT, PROMYELOMAN, BLASTMANPCT,IMMATUREPCT, PLASMAMANPCT, OTHERMANPCT, NRBC, WBCCORRECT, RBCMORPH, WBCMORPH in the last 65340 hours. No results for input(s): MAGMGDL in the last 23977 hours. No results for input(s): PHOS in the last 62488 hours. Tests/EEG: none Imaging: HCT (10/01/2019): TECHNIQUE: CT of the head was performed without contrast according to standard protocol. Automated dose reduction techniques were employed. ?? DOSE: CTDIvol: 36 ??mGy, DLP: 653 mGy-cm ?? The reported CTDIvol [...] ?? No acute intracranial CT abnormality. ?? Valencia Álvarez MD Answers for HPI/ROS submitted by the patient on 06/14/2021 Initial onset (when did headaches first start?):: 8 years Headache quality:: throbbing, stabbing, pressure, pounding Headache location:: bi-temporal, right retro-orbital, left retro-orbital Headache duration:: 6 hours Was the headache treated with medication?: No Headache frequency:: _times per week Times per week:: 4 Times per month:: 10+ Associated symptoms:: nausea, photophobia, lightheadedness, night time awakening Pain relief:: unable to obtain relief with OTC meds, lying in darkened room, sleep Pain relief (other):: Sleep Frequency of OTC meds:: once a month Precipitating factors:: unknown Nutrition:: 3 meals per day, excess processed food Hydration (water intake per day):: 32-64 oz per day Does physical activity increase headaches?: Yes Does exercise increase headaches?: Yes Does playing sports increase headaches?: Yes Does anxiety increase headaches?: No Does stress increase headaches?: No Screen time per day:: >4 hrs per day Sleep quality:: frequent awakening, difficulty falling asleep Number of hours of sleep per night:: 8-10 hrs Prior Neuroimaging exams:: Yes documented in this encounter Plan of Treatment Not on file documented as of this encounter Visit Diagnoses Diagnosis Chronic daily headache- Primary Headache * Assessment & Plan Note - Valencia Álvarez MD - 06/14/2021 11:59 PM CDTAssociated Problem(s): Chronic daily headache Chronic daily headaches have much improved and she is doing well. Continue with lifestyle modification (diet, hydration, sleep regimen, physical activity, limiting screen time, addressing mood/stressors etc). Stop Nortriptyline. Call for any worsening or change in headaches or other neurological concerns. Can follow up with Neurology as needed - can also transition to adult neurology if needed after sheturns 16 y next month. documented in this encounter Care Teams Automotive Parts Specialist Relationship Specialty Start Date End Date Mathew Garcia MD [address] [place] [address] PCP - General Pediatrics 02/29/16 05/06/24 Vianey Cabral MD [address] [place] [address] Pediatric Gastroenterology 12/06/20 documented as of this encounter
--- OUTSIDE RECORDS SUMMARY | 2024-11-24 14:33 | XMS_ITS | Encounter Summary ---
Author Organization [facility] Address [address] [facility] [place] [address] Care Team Providers Care Bed Machine Operator Name Role Phone Mathew Garcia MD Primary Care Provider [phone] Vianey Cabral MD Unavailable [phone] Reason for Visit * Reason Comments Inflammatory Bowel Disease Follow-up Encounter Details Date Type Department Care Team (Latest Contact Info) Description 03/10/2021 9:30 AM CDT - 03/10/2021 11:59 PM CDT Hospital Encounter [facility] Pediatrics - GI [address] [place] [address] Vianey Cabral MD [facility] [place] [address] Discharge Disposition: Home or Self Care Social [...] Sign Reading Time Taken Comments Blood Pressure 120/68 03/10/2021 9:38 AM CDT Pulse - - Temperature - - Respiratory Rate - - Oxygen Saturation - - Inhaled Oxygen Concentration - - Weight 90.5 kg (199 lb 8.3 oz) 03/10/2021 9:38 A M CDT Height 167.6 cm (5' 5.98 ) 03/10/2021 9:38 AM CDT Body Mass Index 32.22 03/10/2021 9:38 AM CDT Body Mass Index Percentile 96.19% 03/10/2021 9:3 8 AM CDT Growth Chart: [facility] (Girls, 2- 20 Years) documented in this [...] Progress Notes * Vianey Cabral MD - 03/10/2021 10:08 AM CDT CHIEF COMPLAINT: Inflammatory Bowel Disease and Follow-up Namita Reyes was seen in the Pediatric GI clinic accompanied by his in consultation at request of her or PCP Mathew Garcia MD HISTORY: Namita is a 15 year old female who presents with abdominal pain. . History is obtained from my review of available records in EMR, Namita and her mother I last evaluated Namita in November Since that time she porets general feeling of unwell. When pressed, hard to describe. Sleeps 20+ hours per day when she feels bad (lately that is many days/week). Notes nausea as major GI symptoms Reports total boday pain Asked about depression. She has been hospitalized for depression in the past. Has tendency toward anxiety. Graduated high school early. Unclear future plans. Mom thinks depression is generally under good control with current medical management Had lab workup by PCP in fall 2018, which family reports were normal. PAST MEDICAL HISTORY: Namita's past medical history [...] at home with her parents and twin sibling. She recently completed credits for high school graduation FAMILY HISTORY: No family history of Crohn's disease, Ulcerative [...] medications for this encounter. PHYSICAL EXAM: BP 120/68 Ht 1.676 m (5' 5.98 ) Wt 90.5 kg (199 lb 8.3 oz) BMI 32.22 kg/m2 General: Quiet affect answers questions, no distress Head: Normocephalic, atraumatic Eyes: No scleral icterus, no injection Mouth: Moist mucus membranes, no oral ulcers Abdomen: truncal obesiy soft, denies pain today nondistended, no Hepatosplenomegaly Extremities: warm and well perfused, no joint swelling Neuro: No facial asymmetry, normal tone, normal gait RESULTS OUr office has requested resulst from labs obtained in fall 2018 IMPRESSION: 15 year old female with recurrent abdominal pain assciated with constipation, now nausea and general feeling of unwelll prrimary symptoms 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 I also wonder about role of depression with generalized body pain, sleepiness etc From mucosal pathologies that would contribute to nausea consider EoE, H. Pylori ulcer, celiac disease PLAN: Orders Placed This Encounter ??? omeprazole (PRILOSEC) 40 MG capsule Sig: Take 1 (one) capsule by mouth once daily Dispense: 30 capsule Refill: 3 ??? ondansetron (ZOFRAN) 4 MG tablet Sig: Take 1 (one) tablet by mouth every 6 hours as needed for Nausea/Vomiting Dispense: 30 tablet Refill: 3 1. Discussed risks/benefit/alternatives to upper endoscopy to evaluate for mucosal pathologies noted in DDx above. Family in agreement to schedule EGD. 2. Labs at time of scope - CMP, CBC, IgA, tTG IgA 3. Rx given for increased PPI dose and Zofran prn 4. Plan to reduce acid suppression, increase nortriptyline (rx'd by neuro for migraine) if no GI mucosal pathology Plan of care, including education on the safe and effective use of medication(s) and/or medical equipment if prescribed, was discussed with the family. They verbalized understanding and agreed with the treatment options discussed. 12/06/2020 10:26 AM documented in this encounter Plan of Treatment Not on file documented as of this encounter Visit Diagnoses Not on filedocumented in this encounter Care Teams Bed Machine Operator Relationship Specialty Start Date End Date Mathew Garcia MD [address] [id number] PCP - General Pediatrics 02/29/16 05/06/24 Vianey Cabral MD [address] [place] [address] Pediatric Gastroenterology 12/06/20 documented as of this encounter
--- OUTSIDE RECORDS SUMMARY | 2024-11-24 14:33 | XMS_ITS | Patient Health Summary ---
Author Organization [facility] Address [address] [facility] [place] [address] Care Team Providers Care Dairy Husbandry Worker Name Role Phone Vianey Cabral MD Unavailable [phone] Note from [facility],non-owned Affiliates and Associated Physician Practices is amultiple site organization consisting of ambulatory clinics and hospital sitesin [place], [place], [place] and [place]. This disclosure is being madepursuant to the Care Everywhere program and may not contain all information available regarding this patient. Last updated 18.[facility] Allergies No known active allergies Medications * Be aware that medications may not be up to date on this document. Alwaysverify current medications with the patient. * Multiple Vitamin (MULTI VITAMIN DAILY PO) * melatonin 5 MG tablet Take 10 mg by mouth at bedtime * LORYNA 3-0.02 MG tablet(Started 07/26/2019) TK 1 T PO QD CONTINUOUSLY * venlafaxine XR 24hr (EFFEXOR XR) 75 MG capsule(Started 01/21/2020) 150 mg * ibuprofen (MOTRIN) 200 MG tablet Take 800 mg by mouth every 6 hours as needed for Pain * docusate sodium (COLACE) 100 MG capsule(Started 12/06/2020) Take 1 capsule by mouth 2 times daily as needed for Constipation 3 refills by 12/06/2021 * omeprazole (PRILOSEC) 40 MG capsule(Started 03/10/2021) Take 1 (one) capsule by mouth once daily 3 refills by 03/10/2022 * ondansetron (ZOFRAN) 4 MG tablet(Started 03/10/2021) Take 1 (one) tablet by mouth every 6 hours as needed for Nausea/Vomiting 3 refills by 03/10/2022 Active Problems Problem Noted Date Diagnosed Date Migraine 03/27/2016 Chronic daily headache Recurrent acute tonsillitis Social History Tobacco Use [...] AM CDT Inhaled Oxygen Concentration 100% 04/22/2021 8:41 AM CDT Weight 89.4 kg (197 lb) 06/14/2021 10:47 AM CDT Height 167 cm (5' 5.75 ) 04/22/2021 8:00 AM CDT Body Mass Index - - Procedures * EGD(Performed 04/22/2021) Performed for Abdominal pain, generalized * HELICOBACTER PYLORI UREASE (STL)(Performed 04/22/2021) Performed for Abdominal pain, generalized * PATHOLOGY TISSUE EXAM (STL)(Performed 04/22/2021) Performed for Abdominal pain, unspecified abdominal location * NM EGD FLEX TRANSORAL W BX SNGL OR MULT(Performed 04/22/2021) * HCG URINE QUALITATIVE - POCT (IP) INTERFACED(Performed 04/22/2021) * HCG URINE QUAL POCT NOTIFICATION(Performed 04/21/2021) Performed for Preop testing * SARS-COV-2 (COVID-19) IN HOUSE(Performed 04/20/2021) Performed for Pre-op testing * SARS-COV2 (COVID-19) PANEL (STL)(Performed 04/20/2021) Performed for Pre-op testing * HCG URINE QUAL POCT NOTIFICATION(Performed 10/01/2019) * CT HEAD WO CONTRAST(Performed 10/01/2019) Performed for Acute intractable headache, unspecified headache type * CARDIAC EKG ORDER(Performed 02/01/2018) * CARDIAC EKG ORDER(Performed 01/31/2018) * PATHOLOGY TISSUE EXAM (STL)(Performed 10/06/2016) Performed for Acute adenotonsillitis, Lesion of nasopharynx * GROSS EXAM PATHOLOGY (STL)(Performed 10/06/2016) Performed for Acute adenotonsillitis, Lesion of nasopharynx * TONSILLECTOMY AND ADENOIDECTOMY(Performed 10/06/2016) Performed for Acute adenotonsillitis, Lesion of nasopharynx * HCG URINE QUALITATIVE - POCT (IP) BEAKER(Performed 10/06/2016) * MRI BRAIN WO CONTRAST(Performed 08/17/2016) Performed for Persistent headaches Results * EGD (04/22/2021 11:08 AM CDT) Report Endoscopy POC _ Patient Name: Namita Reyes ?Procedure Date: 04/22/2021 11:08 AM ?Date of : 2005 Admit Type: Outpatient ?Age: 15 Gender: Female ?Race: White Attending MD: Vianey Cabral , ?Order #: [id number] _ Procedure: ? Upper GI endoscopy Indications: ? Generalized abdominal pain Providers: ? Vianey Cabral Referring MD: ?Mathew Garcia MD Medicines: ? General [...] Procedure Code(s): ? --- Professional --- ? 90021, Esophagogastrodu odenoscopy, flexible, transoral; with biopsy, ? single or multiple ? --- Technical --- ? 74802, Esophagogastrodu odenoscopy, flexible, transoral; with biopsy, ? single or multiple Diagnosis Code(s): ? --- Professional --- ? K31.89, Other diseases of stomach and duodenum ? R10.84, Generalized abdominal pain ? --- Technical --- ? K31.89, Other diseases of stomach and duodenum ? R10.84, Generalized abdominal pain CPT copyright 2019 [employer]. All rights reserved. The codes documented in this report are preliminary and upon messenger floorperson review may be revised to meet current compliance requirements. Dr. Vianey Cabral Vianey Cabral, 04/22/2021 8:43:25 AM This report has been signed electronically. Number of Addenda: 0 Note Initiated On: 04/21/2021 11:08 AM Procedure Date: ? 04/22/2021 11:08:00 AM ? This report has been signed electronically. [facility] 04/22/2021 11:0 8 AM CDT Vianey Cabral MD GI PROCEDURE ORDERAB LES Performing Organization Address City/State/[facility] Co de Phone Number [facility] [address] [facility] [address] [place] [address] * HELICOBACTER PYLORI UREASE (STL) (04/22/2021 8:36 AM CDT) Helicobacter pylori Urease Initial Negative Negative 04/23/2021 11:15 AM CDT [facility] Helicobacter pylori Urease Final Negative Negative 04/23/2021 11:15 AM CDT [facility] Microbiology GASTRIC BIOPSY SPECIMEN / Unknown Collection / Unknown 04/22/2021 8:36 AM CDT 04/22/2021 8:53 AM CDT Vianey Cabral MD LAB - MICROBIOLOGY O RDERABLES Performing Organization Address [facility]/State/ZIP Co de Phone Number [address] [address], [facility] [phone] * PATHOLOGY TISSUE EXAM (STL) (04/22/2021 8:34 AM CDT) Only the most recent of2 resultswithin the time period is included. Case Report Surgical Pathology Report ? Case: [id number] ? Authorizing Provider: ??Vianey Cabral MD ?Collected: ? 04/22/2021 08:34 AM ? Ordering Location: ? [facility] ?Received: ?04/22/2021 09:44 AM ? Pathologist: ? Bisi Dial MD ? Specimens: ?? A) - Duodenal Biopsy ? B) - Stomach Biopsy ? C) - Esophageal Biopsy, distal ? D) - Esophageal Biopsy, mid ? 04/26/2021 3:59 PM [facility] Final Diagnosis Small intestine, duodenum, biopsy [...] increase in intraepithelial eosinophils 04/26/2021 3:59 PM [facility] Clinical History The patient is a 15-year-old girl with abdominal pain who underwent upper endoscopy. The endoscopic finding was patchy gastric erythema. 04/26/2021 3:59 PM [facility] Gross Description The specimens are received [...] biopsy, consists of two 3 mm soft, cox-pink tissue fragments, submitted in toto as C1. Specimen D, mid esophageal biopsy, consists of two soft, cox-pink tissue fragments, 2 mm and 4 mm in greatest dimension. The specimen is submitted in toto as D1. (CT/tc) 04/26/2021 3:59 PM T [facility] Microscopic Description 12 H&E slides examined. Microscopic examination substantiates the final diagnosis. 04/26/2021 3:59 PM CDT [facility] Disclaimer The performance characteristics of all immunohistochemical and indirect immunofluorescence stains (if any) cited in this report were determined by the [facility] in compliance with Clinical Laboratory Improvement Amendments of 1988 (CLIA'88) regulations. Some of these tests rely on the use of analyte-specific reagents and are subject to specific labeling requirements by the U.S. Food and Drug Administration (FDA). Such tests were developed by the [facility] and have not been cleared or approved by the FDA. The FDA has determined that such clearance or approval is not necessary. These tests are used for clinical purposes and should not be regarded as investigational or for research. This case has been personally reviewed and interpreted by the attending (teaching) pathologist. The interpretation of this case is performed by [facility] at [facility], [address] [place] [id number]. 04/26/2021 3:59 PM CDT [facility] Embedded Images 04/26/2021 3:59 PM T [facility] Pathology/Cytology ESOPHAGEAL BIOPSY SPECIMEN / Unknown [...] Cabral MD LAB - PATHOLOGY/CYTO LOGY ORDERABLES [facility] [place] [address] * HCG URINE QUALITATIVE - POCT (IP) INTERFACED (04/22/2021 7:59 AM CDT) HCG Qual Urine Negative Negative 04/22/2021 8:09 AM CDT [facility] Urine URINE / Unknown 04/22/2021 7 :59 AM CDT 04/22/2021 8:09 AM CDT Vianey Cabral MD LAB - POINT OF CARE ORDERABLES Performing Organization Address City/[facility]/ZIP Co de Phone Number [facility] [address] [place] [address] * HCG URINE QUAL POCT NOTIFICATION (04/21/2021 6:00 PM CDT) Only the most recent of2 resultswithin the time period is included. Pathologist [facility] Comment Notification Label Only - See Separate Report 04/22/2021 8:30 AM CDT [facility] Urine URINE / Unknown 04/21/2021 6 :00 PM CDT 04/22/2021 7:19 AM CDT Vianey Cabral MD LAB - URINALYSIS ORD ERABLES Performing Organization Address [facility] de Phone Number [facility] [address] [place] [address] * SARS-COV-2 (COVID-19) IN HOUSE (04/20/2021 2:18 PM CDT) Pathologist [facility] COVID-19 PCR Not detected Not detected 04/20/2021 11:53 PM CDT [facility] MICRO[facility] Microbiology SPECIMEN FROM NASOPHARYNGEAL STRUCTURE / Unknown Collection / Unknown 04/20/2021 2:18 PM CDT 04/20/2021 2:18 PM CDT Narrative [facility] MICRO[facility]OLOGY - 04/20/2021 11:53 PM CDT This nucleic acid amplification assay performance was validated by [facility]. This test has been [...] Cabral MD LAB - MICROBIOLOGY O RDERABLES [facility] [address] [place] [address], [facility] [phone] * CT HEAD WO CONTRAST (10/01/2019 8:30 PM FASHION CONSULTANT SELLING) Anatomical Region Laterality Modality Head Computed Tomogra phy 10/02/2019 7:23 AM FASHION CONSULTANT SELLING Impressions 10/02/2019 7:25 AM FASHION CONSULTANT SELLING No acute intracranial CT abnormality. Reading Radiologist: Rony Zamora MD on 10/02/2019 at 7:25 AM Narrative 10/02/2019 7:25 AM FASHION CONSULTANT SELLING EXAMINATION: Computed tomography (CT) of the head [...] 7:25 AM D[address] Curiel MD [address] ORDERABLES * CARDIAC EKG ORDER (02/01/2018 1:43 AM FASHION CONSULTANT SELLING) Only the most recent of2 resultswithin the time period is included. Narrative 02/01/2018 1:43 AM FASHION CONSULTANT SELLING Ordered by an unspecified provider. Scanned Document CARDIAC SERVICES ORD ERABLES * GROSS EXAM PATHOLOGY (STL) (10/06/2016 1:56 PM FASHION CONSULTANT SELLING) Case Report Surgical Pathology Report ? Case: [id number] ? Authorizing Provider: ??Orion Domingo MD ?Collected: ? 10/06/2016 01:56 PM ? Ordering Location: ? [facility] ? Received: ?10/06/2016 02:51 PM ? Pathologist: ? Roula Garcia MD ? Specimen: ?Tonsil(s), tonsils ? 10/09/2016 8:13 AM [facility] Final Diagnosis GROSS DIAGNOSIS: PALATINE TONSILS. 10/09/2016 8:13 AM [facility] Clinical History The patient is a 11-year-old girl with acute adenotonsiliti s. 10/09/2016 8:13 AM [facility] Gross Description Submitted fresh in one container for gross examination only labeled with the patient's name, Namita Reyes, and bilateral tonsils, are two egg-shaped, pink-edmonds palatine tonsils measuring 2.7 x 2 x 1.5 cm and 2.7 x 2 x 1 cm, weighing 8 grams combined. On cut surface, the tonsils have a cerebriform yellow-edmonds appearance. Sulfur granules are identified within the crypts of both tonsils. No sections are taken. (CT/me) 10/09/2016 8:13 AM [facility] Embedded Images 10/09/2016 8:13 AM [facility] Pathology/Cytolo gy SPECIMEN FROM TONSIL / Unknown 10/06/2016 1:56 PM FASHION CONSULTANT SELLING 10/06/2016 2:51 PM FASHION CONSULTANT SELLING Orion Domingo MD LAB - PATHOLOGY/CYTO LOGY ORDERABLES [facility] [address] [place] [address] * HCG URINE QUALITATIVE - POCT (IP) CONOR (10/06/2016 12:00 PM FASHION CONSULTANT SELLING) HCG Qual Urine Negative Negative [facility] PO[facility] TEST[facility] QC Verified Yes Yes [facility] PO CT TESTING Urine URINE / Unknown 10/06/2016 1 2:00 PM FASHION CONSULTANT SELLING Orion Domingo MD LAB - POINT OF CARE ORDERABLES Performing Organization Address [facility] Co de Phone Number [facility] POCT TESTING [address] [place], [place] [id number] [place] [address] * MRI BRAIN NON CONTRAST (08/17/2016 3:04 PM CDT) Anatomical Region Laterality Modality Head Magnetic Resonan ce 08/17/2016 3:11 PM CDT Impressions 08/17/2016 4:00 PM CDT 1. Normal examination of the brain without findings to explain the patient's symptoms. 2. T1 isointense and T2 slightly hyperintense focus in the posterior wall of the nasopharynx which could represent an asymmetric adenoid tissue versus a Thornwaldt cyst, a polyp or a tumor. Correlation with physical examination and direct visualization is recommended. If indicated, a follow-up MRI without and with contrast or a biopsy could be performed. Dictated by Dima Crain on 08/17/2016 3:47 PM I, Rosario Lee, have personally reviewed the images and I agree with this report. Narrative 08/17/2016 4:00 PM CDT EXAMINATION: Magnetic resonance imaging (MRI) of the brain without contrast HISTORY: 11-year-old female with chronic headaches. TECHNIQUE: MRI of the brain was performed without contrast according to standard protocol. FINDINGS: No prior study is available for comparison. No evidence of acute or chronic hemorrhage is identified. No evidence of acute cerebral infarction is seen. The ventricles are of normal size, shape, and morphology. No mass effect or midline shift is seen. The corpus callosum and sella appear normal. The posterior fossa, brainstem, and craniocervical junction appear normal. Other than a small mucus retention cyst in the right sphenoid sinus, the visualized portions of the orbits, paranasal sinuses, and mastoids appear normal. Normal flow voids are demonstrated in the carotid arteries and basilar artery. The calvarium and visualized cervical spine appear normal. There is a T1 isointense and T2 slightly hyperintense focus in the posterior wall of the nasopharynx measuring 12 x 11 mm (image 3, series 8). This likely represents an asymmetric adenoid tissue versus a Thornwaldt cyst or polyp. Procedure Note Rosario Lee MD - 08/17/2016 EXAMINATION: Magnetic resonance imaging (MRI) of the brain without contrast HISTORY: 11-year-old female with chronic headaches. TECHNIQUE: MRI of the brain was performed without contrast according to standard protocol. FINDINGS: No prior study is available for comparison. No evidence of acute or chronic hemorrhage is identified. No evidence of acute cerebral infarction is seen. The ventricles are of normal size, shape, and morphology. No mass effect or midline shift is seen. The corpus callosum and sella appear normal. The posterior fossa, brainstem, and craniocervical junction appear normal. Other than a small mucus retention cyst in the right sphenoid sinus, the visualized portions of the orbits, paranasal sinuses, and mastoids appear normal. Normal flow voids are demonstrated in the carotid arteries and basilar artery. The calvarium and visualized cervical spine appear normal. There is a T1 isointense and T2 slightly hyperintense focus in the posterior wall of the nasopharynx measuring 12 x 11 mm (image 3, series 8). This likely represents an asymmetric adenoid tissue versus a Thornwaldt cyst or polyp. IMPRESSION 1. Normal examination of the brain without findings to explain the patient's symptoms. 2. T1 isointense and T2 slightly hyperintense focus in the posterior wall of the nasopharynx which could represent an asymmetric adenoid tissue versus a Thornwaldt cyst, a polyp or a tumor. Correlation with physical examination and direct visualization is recommended. If indicated, a follow-up MRI without and with contrast or a biopsy could be performed. Dictated by Dima Crain on 08/17/2016 3:47 PM I, Rosario Lee, have personally reviewed the images and I agree with this report. Angie Casas MD MR ORDERABLES Care Teams Dairy Husbandry Worker Relationship Specialty Start Date End Date Vianey Cabral MD [address] [place] [address] Pediatric Gastroenterology 12/06/20
--- OUTSIDE RECORDS SUMMARY | 2024-11-24 14:33 | XMS_ITS | Encounter Summary ---
Author Organization [facility] Address [address] [place] [address] Care Team Providers Care Protection Officer Name Role Phone Mathew Garcia MD Primary Care Provider [phone] Reason for Visit * Reason Onset Date Comments MEDICATION REFILL 04/26/2020 Encounter Details Date Type Department Care Team (Late st Contact Info) Description 04/23/2020 Refill [facility] Pediatrics - Neurology [address] [place] [id number] Valencia Álvarez MD [address] [place] [id number] MEDICATION REFILL Social History Tobacco Use Types Packs/Day Years [...] encounter Miscellaneous Notes * Telephone Encounter - Manda Cordero RN - 04/23/2020 3:00 PM CDT Mom called and requested a refill of nortriptyline 10 mg HS Transferred to office coordinators to schedule follow-up, 05/27/20. Prescription pended, please review and sign. documented in this encounter Plan of Treatment Not on file documented as of this encounter Visit Diagnoses Not on filedocumented in this encounter Care Teams Protection Officer Relationship Specialty Start Date End Date Mathew Garcia MD [address] [place] [address] PCP - General Pediatrics 02/29/16 05/06/24 documented as of this encounter
--- OUTSIDE RECORDS SUMMARY | 2024-11-24 14:33 | XMS_ITS | Encounter Summary ---
Author Organization [facility] Address [address] [facility] [place] [address] Care Team Providers Care Hydro Technician Name Role Phone Mathew Garcia MD Primary Care Provider [phone] Vianey Cabral MD Unavailable [phone] Encounter Details Date Type Department Care Team (Latest Contact Info) Description 04/22/2021 Travel Social History Tobacco Use Types Packs/Day [...] No 04/22/2021 documented as of this encounter Plan of Treatment Not on file documented as of this encounter Visit Diagnoses Not on filedocumented in this encounter Care Teams Hydro Technician Relationship Specialty Start Date End Date Mathew Garcia MD [place] [id number] PCP - General Pediatrics 02/29/16 05/06/24 Vianey Cabral MD [address] [place] [address] Pediatric Gastroenterology 12/06/20 documented as of this encounter
--- OUTSIDE RECORDS SUMMARY | 2024-11-24 14:33 | XMS_ITS | Encounter Summary ---
Author Organization [facility] Address [address] [facility] [place] [address] Care Team Providers Care Rn Case Mgr Name Role Phone Mathew Garcia MD Primary Care Provider [phone] Vianey Cabral MD Unavailable [phone] Reason for Visit * Auth/Cert Specialty Diagnoses / Procedures Referred By Mercedez perez Referred To Contact Procedures ESOPHAGOGASTRODUODENOSCOPY (EGD) BIOPSY Referral ID Status Reason Start Date Expiration Date Visits Re quested Visits Authorized [id number] 1 1 Encounter Details Date Type Department Care Team (Latest Contact Info) Description 04/22/2021 8:30 AM CDT - 04/22/2021 9:15 AM CDT Surgery [facility] - Endoscopy [address] [place] [address] Vianey Cabral MD [address] [place] [address] ESOPHAGOGASTRODUODENOSCOPY (EGD) BIOPSY Surgery Details Date/Time Status Location OR Service Patient Class Case Class Case Type Trauma Case? 04/22/2021 8:30 AM Posted [facility]o 03 Gastroenterology Surgery Day Care Elective > 5 days Panel 1 Procedure LRB Anes Op Region Wound Class Comments ESOPHAGOGASTRODUODENOSCOPY ( EGD) BIOPSY General Clean Contaminated Surgeon Surgeon Role Service Panel Vianey Cabral MD Primary Gastroenterology 1 documented in this encounter Social History Tobacco Use Types Packs/Day Years [...] 04/22/2021 8:0 0 AM CDT Growth Chart: [facility] (Girls, 2- 20 Years) documented in this [...] SURGERY DISCHARGE SUMMARY Patient ID: Namita Reyes [id number] 15 year old 2005 Discharge Date: 04/22/21 Discharge Diagnoses: 1. Preop testing 2. Abdominal pain, generalized 3. Abdominal pain, unspecified abdominal location Discharge Condition: Stable Discharge Medication: Please see Discharge Instructions for a complete list of medications. Discharge Procedure Orders Procedure information Namita had the following procedure performed: Esophagogastro duodenoscopy Order Specific Question Answer Comments Your discharge diagnosis is: Abdominal pain [7981843] Why you were hospitalized Order Specific Question Answer Comments Your discharge diagnosis is: Abdominal pain [3881960] Recovering after your Uppder Endoscopy -- Micheles [...] AM CDT Abdominal pain, unspecified abdominal location ID EGD FLEX TRANSORAL W BX SNGL OR [...] Attending MD: Vianey Cabral , ?Order #: [id number] _ Procedure: ? Upper GI endoscopy Indications: [...] Procedure Code(s): ? --- Professional --- ? 55363, Esophagogastrodu odenoscopy, flexible, transoral; with biopsy, ? single or multiple ? --- Technical --- ? 63765, Esophagogastrodu odenoscopy, flexible, transoral; with biopsy, ? single or multiple Diagnosis Code(s): ? --- Professional --- ? K31.89, Other diseases of stomach and duodenum ? R10.84, Generalized abdominal pain ? --- Technical --- ? K31.89, Other diseases of stomach and duodenum ? R10.84, Generalized abdominal pain CPT copyright 2019 [employer]. All rights reserved. The codes documented in this report are preliminary and upon relationship executive review may be revised to meet current compliance requirements. Dr. Vianey Cabral Vianey Cabral, 04/22/2021 8:43:25 AM This report has been signed electronically. Number of Addenda: 0 Note Initiated On: 04/21/2021 11:08 AM Procedure Date: ? 04/22/2021 11:08:00 AM ? This report has been signed electronically. [facility] 04/22/2021 11:0 8 AM CDT Vianey Cabral MD GI PROCEDURE ORDERAB LES Performing Organization Address City/[facility] Co de Phone Number [facility] [address] [place] [address] * HELICOBACTER PYLORI UREASE (STL) (04/22/2021 8:36 AM CDT) Helicobacter pylori Urease Initial Negative Negative 04/23/2021 11:15 AM CDT [facility] Helicobacter pylori Urease Final Negative Negative 04/23/2021 11:15 AM CDT [facility] Microbiology GASTRIC BIOPSY SPECIMEN / Unknown Collection / Unknown 04/22/2021 8:36 AM CDT 04/22/2021 8:53 AM CDT Vianey Cabral MD LAB - MICROBIOLOGY O RDERABLES Performing Organization Address City/[facility]/ZIP Co de Phone Number [place] [address] [place] [address], [facility] [phone] * PATHOLOGY TISSUE EXAM (STL) (04/22/2021 8:34 AM CDT) Case Report Surgical Pathology Report ? Case: [id number] ? Authorizing Provider: ??Vianey Cabral MD ?Collected: ? 04/22/2021 08:34 AM ? Ordering Location: ? [facility] ?Received: ?04/22/2021 09:44 AM ? Pathologist: ? Bisi Dial MD ? Specimens: ?? A) - Duodenal Biopsy ? B) - Stomach Biopsy ? C) - Esophageal Biopsy, distal ? D) - Esophageal Biopsy, mid ? 04/26/2021 3:59 PM [facility] Final Diagnosis Small intestine, duodenum, biopsy [...] increase in intraepithelial eosinophils 04/26/2021 3:59 PM [facility] Clinical History The patient is a 15-year-old girl with abdominal pain who underwent upper endoscopy. The endoscopic finding was patchy gastric erythema. 04/26/2021 3:59 PM [facility] Gross Description The specimens are received [...] toto as D1. (CT/tc) 04/26/2021 3:59 PM [facility] Microscopic Description 12 H&E slides examined. Microscopic examination substantiates the final diagnosis. 04/26/2021 3:59 PM [facility] Disclaimer The performance characteristics of all immunohistochemical and indirect immunofluorescence stains (if any) cited in this report were determined by the [facility] of [facility] in compliance with Clinical Laboratory Improvement Amendments of 1988 (CLIA'88) regulations. Some of these tests rely on the use of analyte-specific reagents and are subject to specific labeling requirements by the U.S. Food and Drug Administration (FDA). Such tests were developed by the [facility] of [facility] and have not been cleared or approved by the FDA. The FDA has determined that such clearance or approval is not necessary. These tests are used for clinical purposes and should not be regarded as investigational or for research. This case has been personally reviewed and interpreted by the attending (teaching) pathologist. The interpretation of this case is performed by [facility] at [facility], [address] [place] [address]. 04/26/2021 3:59 PM CDT [facility] Embedded Images 04/26/2021 3:59 PM CDT [facility] Pathology/Cytology ESOPHAGEAL BIOPSY SPECIMEN / Unknown [...] Cabral MD LAB - PATHOLOGY/CYTO LOGY ORDERABLES [facility] [address] [place] [address] * HCG URINE QUALITATIVE - POCT (IP) INTERFACED (04/22/2021 7:59 AM CDT) HCG Qual Urine Negative Negative 04/22/2021 8:09 AM CDT [facility] Urine URINE / Unknown 04/22/2021 7 :59 AM CDT 04/22/2021 8:09 AM CDT Vianey Cabral MD LAB - POINT OF CARE ORDERABLES [facility] [address] [place] [address] * HCG URINE QUAL POCT NOTIFICATION (04/21/2021 6:00 PM CDT) Comment Notification Label Only - See Separate Report 04/22/2021 8:30 AM CDT [facility] Urine URINE / Unknown 04/21/2021 6 :00 PM CDT 04/22/2021 7:19 AM CDT Vianey Cabral MD LAB - URINALYSIS ORD ERABLES [facility] [place] [address] documented in this encounter Visit Diagnoses Not on filedocumented in this encounter Administered Medications Inactive Administered [...] Smith, MELANY)0915 (Stopped - Provider: Samantha Smith, RN) documented in this encounter Care Teams Rn Case Mgr Relationship Specialty Start Date End Date Mathew Garcia MD [address] [place] [id number] PCP - General Pediatrics 02/29/16 05/06/24 Vianey Cabral MD [address] [place] [address] Pediatric Gastroenterology 12/06/20 documented as of this encounter
--- OUTSIDE RECORDS SUMMARY | 2024-11-24 14:33 | XMS_ITS | Encounter Summary ---
Author Organization [facility] Address [address] [facility] [place] [address] Care Team Providers Care Graduate Studies Dean Name Role Phone Mathew Garcia MD Primary Care Provider [phone] Vianey Cabral MD Unavailable [phone] Reason for Visit * Reason Onset Date Comments Results 05/02/2021 Encounter Details Date Type Department Care Team (Late st Contact Info) Description 05/02/2021 Telephone [facility] Pediatrics - [facility] [place] [address] Vianey Cabral MD [address] [place] [id number] Results Social History Tobacco Use Types Packs/Day [...] No 04/22/2021 documented as of this encounter Miscellaneous Notes * Telephone Encounter - Angie Lopez RN - 05/05/2021 9:07 AM CDT Spoke to mom and reviewed results and recommendations. Mom will discuss guided imagery with Namita and call back for an appointment. * Telephone Encounter - Sherrill Adorno RN - 05/04/2021 11:37 AM CDT No answer @ number left by mom, LM that we returned call. * Telephone Encounter - Cierra Aguirre - 05/04/2021 11:26 AM CDT Mom left message returning missed call from the nurses. * Telephone Encounter - Sherrill Adorno RN - 05/03/2021 8:29 AM CDT LM on mom's unidentified VM to call us. 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 I would like to try nondrug strategies first. documented in this encounter Plan of Treatment Not on file documented as of this encounter Visit Diagnoses Not on filedocumented in this encounter Care Teams Graduate Studies Dean Relationship Specialty Start Date End Date Mathew Garcia MD [address] [place] [address] [place] [phone] PCP - General Pediatrics 02/29/16 05/06/24 Vianey Cabral MD [address] [place] [address] Pediatric Gastroenterology 12/06/20 documented as of this encounter
--- OUTSIDE RECORDS SUMMARY | 2024-11-24 14:33 | XMS_ITS | Encounter Summary ---
Author Organization [facility] Address [address] [facility] [place] [address] Care Team Providers Care Websphere Administrator Name Role Phone Mathew Garcia MD Primary Care Provider [phone] Reason for Visit * Reason Onset Date Comments Update 10/01/2019 Encounter Details Date Type Department Care Team (Late st Contact Info) Description 10/01/2019 Telephone [facility] [address] [place] [address] Batool Rojo Bianca, DO [address] [place] [address] Update Social History Tobacco Use Types Packs/Day [...] No 10/06/2016 documented as of this encounter Patient Instructions * Patient Instructions* ViniBatool lopez, - 10/01/2019 10:49 PM ICE BAG ASSEMBLER 14 yo F with hx of Migraine and Chronic daily MANDEL (prev followed by Dr. Luque but not seen since 2017) presents for continuous MANDEL x [address]. [address] Curiel patient reports history of CDH and migraines in past tx with Topamax, Lipoic acid, Mg, and Neurontin. Patient was lost to follow up. 2 weeks ago developed a holocephalic but worse at bitemporal area throbbing headache with some photophobia, describes occasional periods of L VF looking like there is a bright white light, intermittent nausea and a few episodes of emesis. The MANDEL does not appear to have gone away during this two weeks but waxes and wanes in intensity but overall MANDEL intensity appears to be worsening. No particular time of day the MANDEL is worse. She per report has tried minimal Tylenol and IBP (ie not overusing medications) due to not helping pain. Reports seen at OSH 2 days ago where given IVF, steroids and 2 other meds with improvement of MANDEL but shortly after d/c the MANDEL worsened again. Per report last night patient noted that it looked like her Left eye was deviated to the left; however resolved. Namita brought to for evaluation. In ED CTH NAICP. She was given a migraine cocktail with improvement of her MANDEL however is still present (per pain scale in chart 9-->4). Neuro exam is reported to be nonfocal with intact CN, including EOMI (and no report 6th N. Palsy), no changes in VF today, no evidence of papilledema on fundoscopic exam. Normal strength and reflexes. Mother concerned given length of MANDEL (and no neuro appt until Nov) what she can do if upon dischargeHA flares again. Diff Dx new onset daily MANDEL x 2 weeks. Status Migrainosus vs. Tension MANDEL vs. Chronic daily MANDEL vs. IIH vs. Intracranial process (less likely given normal CTH) vs. Infectious (no report of s/s or fever or meningismus). - Discussed with Dr. Curiel if family is comfortable may discharge home with Naproxen 500 mg prn for bad MANDEL (>8/10 pain) not to be taken more than 2x per day and 4x per week. emphasize importanceof lifestyle factors (Eat a healthy diet and do not skip any meals, drink at lease 64 oz+ water perday, get 8-10 hours of sleep, limit screen time < 2hours per day, do not use pain medication (whether prescribed or over the counter) more than 3-4 times a week as this can sometimes worsen headaches in the care home). Family to update on HAs in 2-4 weeks. - If family uncomfortable with discharge home may admit to Neurology for observation and pain control Batool Rojo DO BAG ASSEMBLER documented in this encounter Miscellaneous Notes * Telephone Encounter - Jinny May - 10/03/2019 11:27 AM ICE BAG ASSEMBLER Spoke with mother and she agreed to new appointment with on 12/10/2019. BAG ASSEMBLER documented in this encounter Plan of Treatment Not on file documented as of this encounter Visit Diagnoses Not on filedocumented in this encounter Care Teams Websphere Administrator Relationship Specialty Start Date End Date Mathew Garcia MD [address] [place] [phone] PCP - General Pediatrics 02/29/16 05/06/24 documented as of this encounter
--- OUTSIDE RECORDS SUMMARY | 2024-11-24 14:33 | XMS_ITS | Encounter Summary ---
Author Organization [facility] Address [address] [facility] [place] [address] Care Team Providers Care Composite Bond Worker Name Role Phone Mathew Garcia MD Primary Care Provider [phone] Vianey Cabral MD Unavailable [phone] Reason for Visit * Auth/Cert Specialty Diagnoses / Procedures Referred By Mercedez perez Referred To Contact Procedures ESOPHAGOGASTRODUODENOSCOPY (EGD) BIOPSY Referral ID Status Reason Start Date Expiration Date Visits Re quested Visits Authorized [id number] 1 1 Encounter Details Date Type Department Care Team (Late st Contact Info) Description 04/22/2021 8:28 AM CDT Anesthesia Event [facility] [address] [place] [id number] Antonio Ray MD [address] [place] [phone] Rosalie Coats APRN-DARIELA [address] [place] [address] Anesthesia Record Procedure Summary Procedure Name Responsible Anesthesiologist Anesthesia Start Time Anesthesia Stop Time ESOPHAGOGASTRODUODENOSCOPY ( EGD) BIOPSY Antonio Ray MD 04/22/21 0828 04/22/21 0843 Events Date Time Event Comment 04/22/2021 0828 An Start 0828 An Start Data 0829 PT Reassessment 0830 An Induction 0832 Timeout Anesthesia part icipated in timeout at the time documented in the record by nursing. 0838 An Emergence 0840 an stop data 0840 ANPTO2 0840 Electnc Sig 0843 An Stop 0850 Meds Name Total midazolam 2 mg/2mL injection 2 mg fentaNYL 100 mcg/2mL injection 75 mcg lidocaine (MPF) 2% injection 40 mg propofol 200mg/20mL injection 30 mg propofol 200mg/20mL injection 143.68 mg dexamethasone 4 mg/mL injection 4 mg ondansetron 4 mg/2mL injection 4 mg isolyte-S pH 7.4 infusion 250 mL * Agents Name Insp. N2O O2 Flow - Auxiliary * Blood No blood administrations on file. Lines, Drains, and Airways Type Details Placement Removal Procedural Site (Incision) 04/22/21; 0807; Throat; 04/22/21; 1533 04/22/21 0807 by Nika Oro RN 04/22/21 1533 by Generic, Auto Release Peripheral IV Date: 04/22/21; Time: 0816; Orientation: Posterior, Right; Placed By: Bryanna Gonzalez RN; Tolerance: Well 04/22/21 0816 by Cely Gonzalez RN 04/22/21 0915 by Samantha Smith RN documented in this encounter Social History Tobacco [...] No 04/22/2021 documented as of this encounter Progress Notes * Antonio Ray MD - 04/22/2021 7:53 AM CDT ANESTHESIA PREOPERATIVE EVALUATION NOTE Procedure: ESOPHAGOGASTRODUODENOSCOPY (EGD) BIOPSY Vitals: No data found. ANESTHESIA PRE-EVALUATION NOTE History of Present Illness: Namita is a 15yo female with hx of migraines and abdominal pain here for EGD. Hx of PONV after T&A and nasopharyngeal cyst removal. No significant family hx of anesthesia problems. NPO appropriate. Previous Airway Management: ETT Placed: ETT Size: 7 Blade Type: MAC Blade Size: 3 GradeGrade: 1 Mask Airway: Easy The patient is a current non-smoker. Physical Exam: Orientation X3 Airway/Mallampati Score: II Neck ROM: full Teeth: normal Heart: normal - S1 S2 Lungs: clear to ausculation bilaterally Abdomen Exam: normal ANESTHESIA PLAN ASA Score: 2 NPO Status: No solids since midnight and No liquids within 2 hours Anesthesia Plan: TIVA Planned Induction: intravenous Planned Postop Destination: PACU Anesthetic plan was discussed with: patient, family, father, mother Anesthetic Plan discussion was: Consented The patient's procedural Anesthetic Plan was discussed with the attending. Overall additional findings/comments: I evaluated Namita this AM and discussed the anesthetic plan with both parents. Dr. Tran . BMI, Height, Weight Tobacco History Estimated body mass index is 32.22 kg/m?? as calculated from the following: Height as of 03/10/21: 1.676 m (5' 5.98 ). Weight as of 03/10/21: 90.5 kg (199 lb 8.3 oz). Social History Tobacco Use Smoking Status Passive Smoke Exposure - Never Smoker Smokeless Tobacco Never Used Alcohol History Drug History Social History Substance and Sexual Activity Alcohol Use Never ??? Alcohol/week: 0.0 standard drinks Social History Substance and Sexual Activity Drug Use Never Outpatient Medications: Inpatient Medications: No outpatient medications have been marked as taking for the 04/22/21 encounter (Hospital Encounter). No current facility-administered medications for this encounter. Allergies: No Known Allergies Relevant Problems No relevant active problems Problem List: Patient Active Problem List Diagnosis Date Noted ??? Recurrent acute tonsillitis Priority: Not Prioritized ??? Chronic daily headache Priority: Not Prioritized ??? Migraine 03/27/2016 Priority: Not Prioritized Medical History: Past Medical History: Diagnosis Date ??? History of migraine headaches ??? 31 weeks gestation- NICU for 17 days-twin ??? Twin , mate liveborn twin sister Surgical History: Past Surgical History: Procedure Laterality Date ??? Tonsillectomy and Adenoidectomy N/A 10/06/2016 N/A; TONSILLECTOMY AND ADENOIDECTOMY, RIGHT REMOVAL OF MASS (NASOPHARYNX CYST) Lab Results: No results found for requested labs within last 120 days. No results found for requested labs within last 120 days. documented in this encounter Miscellaneous Notes * Anesthesia Transfer of Care - Rosalie Coats APRN-FINANCIAL ADMINISTRATIVE ASSISTANT - 04/22/2021 8:43 AM CDT ANESTHESIA TRANSFER OF CARE NOTE Today's Date: 04/22/2021 Date of : 2005 Patient: Namita Reyes Procedure(s): ESOPHAGOGASTRODUODENOSCOPY (EGD) BIOPSY Surgeon(s): Primary: Vianey Cabral MD Preop Diagnosis: * No Diagnosis Codes entered * Pre-op Meds (From admission, onward) Start Stop Status Route Frequency Ordered 04/22/21 0830 fentaNYL (PF) (Sublimaze) injection -- Sent IV PRN 04/22/21 0836 04/22/21 0827 isolyte-S pH 7.4 infusion -- Sent IV CONTINUOUS PRN 04/22/21 0836 04/22/21 0830 lidocaine hcl (PF) (Xylocaine Mpf) 2 % injection -- Sent IV PRN 04/22/21 0836 04/22/21 0827 midazolam (PF) (Versed) injection -- Sent IV PRN 04/22/21 0835 04/22/21 0830 propofol (Diprivan) injection -- Sent IV PRN 04/22/21 0836 04/22/21 0830 propofol (Diprivan) injection -- Sent IV CONTINUOUS PRN 04/22/21 0836 * No Diagnosis Codes entered * . No Known Allergies Vitals: Patient Vitals for the past 3 hrs: BP Temp Pulse Resp SpO2 Pain Rating Score #1 04/22/21 0816 -- -- -- -- -- 0 04/22/21 0800 136/94 99.4 ??F (37.4 ??C) 92 18 96 % -- Lines, Drains, and Airways Type Details Placement Removal Peripheral IV Date: 04/22/21; Time: 815; Orientation: Posterior, Right; Location: Hand; Placed By:Bryanna Gonzalez RN; Gauge: 22 Gauge ; Locals: None; Tolerance: Well 04/22/21815 by Cely Gonzalez RN Intraprocedure I/O Totals Intake isolyte-S pH 7.4 infusion 250.00 mL Total Intake 250 mL Patient Transfer Location: PACU Transport Airway: supplemental O2 and spontaneous respirations Transport Monitoring: heart rate and continuous pulse oximetry Complications: None Handoff Given? Yes Checklist or Protocol - The monsalve handoff elements that must be included in the transfer of care checklist include: 1. Identification of patient. 2. Identification of responsible practitioner (PACU nurse or advanced practitioner). 3. Discussion of pertinent medical history. 4. Discussion of the surgical/procedure course (procedure, reason for surgery, procedure performed). 5. Intraoperative anesthetic management and issue/concerns. 6. Expectations/Plans for the early post-procedure period. 7. Opportunity for questions and acknowledgement of understanding of report from the receiving PACUteam. BERTA Fraser documented in this encounter Plan of Treatment Not on file documented as of this encounter Visit Diagnoses Not on filedocumented in this encounter Administered Medications Inactive Administered Medications - up to 3 most recent administrations Medication Order MAR Action Action Date Dose Rate Site dexamethasone (Decadron) injection Intravenous, PRN, Starting on Sun04/22/21 at 0834, Until Sun04/22/21 at 0844, Anesthesia Intra-op $ Given 04/22/2021 8:34 AM CDT 4 mg fentaNYL (PF) (Sublimaze) injection Intravenous, PRN, Starting on Sun04/22/21 at 0830, Until Sun04/22/21 at 0843, Anesthesia Intra-op $ Given 04/22/2021 8:30 AM CDT 75 mcg isolyte-S pH 7.4 infusion Intravenous, CONTINUOUS PRN, Starting on Sun04/22/21 at 0827, Until Sun04/22/21 at 0843, Anesthesia Intra-op $ New Bag/Syringe 04/22/2021 8:27 AM CDT lidocaine hcl (PF) (Xylocaine Mpf) 2 % injection Intravenous, PRN, Starting on Sun04/22/21 at 0830, Until Sun04/22/21 at 0843, Anesthesia Intra-op $ Given 04/22/2021 8:30 AM CDT 40 mg midazolam (PF) (Versed) injection Intravenous, PRN, Starting on Sun04/22/21 at 0827, Until Sun04/22/21 at 0843, Anesthesia Intra-op $ Given 04/22/2021 8:27 AM CDT 2 mg Ondansetron HCl (Zofran) injection Intravenous, PRN, Starting on Sun04/22/21 at 0834, Until Sun04/22/21 at 0844, Anesthesia Intra-op $ Given 04/22/2021 8:34 AM CDT 4 mg propofol (Diprivan) injection Intravenous, PRN, Starting on Sun04/22/21 at 0830, Until Sun04/22/21 at 0843, Anesthesia Intra-op $ Given 04/22/2021 8:30 AM CDT 30 mg propofol (Diprivan) injection Intravenous, CONTINUOUS PRN, Starting on Sun04/22/21 at 0830, Until Sun04/22/21 at 0843, Anesthesia Intra-op $ New Bag/Syringe 04/22/2021 8:30 AM CDT 200 mcg/kg/min 107.76 mL/hr documented in this encounter Care Teams Composite Bond Worker Relationship Specialty Start Date End Date Mathew Garcia MD [address] [place] [address] PCP - General Pediatrics 02/29/16 05/06/24 Vianey Cabral MD [address] [place] [address] Pediatric Gastroenterology 12/06/20 documented as of this encounter
--- OUTSIDE RECORDS SUMMARY | 2024-11-24 14:33 | XMS_ITS | Encounter Summary ---
Author Organization [facility] Address [address] [place] [address] Care Team Providers Care Juice Tester Name Role Phone Mathew Garcia MD Primary Care Provider [phone] Vianey Cabral MD Unavailable Reason for Visit * Reason Comments Headache patient reports she is having the same amount of headaches as before, but they don't seem to be as severe Encounter Details Date Type Department Care Team (Latest Contact Info) Description 12/06/2020 3:38 PM BOOM STICK WORKER - 12/06/2020 11:59 PM [facility] Hospital Encounter [facility] Pediatric[facility] - Neurology [address] [place] [address] Valencia Álvarez MD [address] [place] [address] Discharge Disposition: Home or Self Care Social [...] COVID-19? Unable to assess 12/06/2020 1:59 PM BOOM STICK WORKER documented as of this encounter Last Filed Vital Signs Vital Sign Reading Time Taken Comments Blood Pressure 128/82 12/06/2020 3:48 PM BOOM STICK WORKER bp taken at [facility] appointment earlier today Pulse - - Temperature - - Respiratory Rate - - Oxygen Saturation - - Inhaled Oxygen Concentration - - Weight 88.3 kg (194 lb 10.7 oz) 12/06/2020 3:48 PM BOOM STICK WORKER Height 169.5 cm (5' 6.73 ) 12/06/2020 3 :48 PM BOOM STICK WORKER Body Mass Index 30.73 12/06/2020 3:48 PM BOOM STICK WORKER Body Mass Index Percentile 95.48% 12/06 3:48 PM BOOM STICK WORKER Growth Chart: [facility] (Girls, 2- 20 Years) documented [...] * Patient Instructions* Valencia Álvarez MD - 12/06/2020 4:28 PM BOOM STICK WORKER Chronic daily headache Chronic daily headaches have been less intense since restarting nortriptyline and also reduction inschool stressors (since she has graduated). No changes [...] Call for any interim concerns and updates STICK WORKER documented in this encounter Medications at Time [...] at bedtime 30 capsule 5 12/06/2020 06/23/2021 omeprazole (PRILOSEC) 20 MG capsule Take 20 mg by mouth once daily 12/03/2020 03/10/2021 documented as of this encounter Progress Notes * Valencia Álvarez MD - 12/06/2020 11:59 PM CST Images from the original note were not included. Patient Name: Namita Reyes Date: 12/12/2020 Interval History: pt is a 15 y/o brought in by father (historian) for follow up of her chronic headaches - mixed pattern of chronic tension and migraine headaches. I last saw her (via tele) in at which time, she was doing well with improvement in her headaches; she had been taking Nortriptyline 1- mg HS that I had started her on in for headache preventions. Since it was summer time and school stressors were not present, I discussed continuing lifestyle modifications and then stopping the nortriptyline at that time. However, towards the end of , mom called to report increasing headaches and so I restarted the medication which she continues to take. She developed some abdominal pain and mom had called to see if it could be a side effect, however the GI symptoms were long standing and I also discussed that if it were related to irritable Bowel syndrome, that nortriptyline may be helpful She has just seen GI for this and she may undergo further work up for her symptoms. She states that since restarting the med, the headaches have slightly improved. Though she still gets a headache several days a week, they are milder and non disabling and so she limits her analgesicintake to about 1-2 times a week. She has been complaint with the nortriptyline and there are no reported side effects such as sedation or weight gain. She has no other neurological concerns. Review of Systems: No recent fever, cough, runny nose, vomiting, diarrhea or rash. A comprehensive 10 system ROS was reviewed. Pertinent positives and negatives are included in HPI or PMH. The remainder of the 10 system ROS was negative. ? Lifestyle: Diet: eats well - has lost some weight (about 2-3 lbs) from last recorded weight has been eating better, not missing meals. No symptoms suggestive of eating disorder reported Hydration/caffeine: drinks about 2-3 bottles of water daily, no regular caffeine intake. Sleep: usually goes to bed around 11P and has no trouble falling asleep and sleeps through the night - wakes up by 7-8A though sleeps in sometime based on her schedule. No snoring or sleep related restlessness. Mood: feeling much better now that her school related stresses are lessened. Denies any suicidal thoughts. Seen by psychiatrist (every 2 months) and was started on Venlafaxine. Not presently seeing the therapist or counselor and feels like she is doing well. Physical activity/screen time: not very active, tries to exercise, but not consistent. Menstrual cycles regular with no associated worsening of headaches. ?? Social history: lives at home and no recent changes or stressors. She finished her high school (completed all graduation requirements and so was able to graduate early) and is now looking for a job. She wants to go to college this fall, to pursue further studies inpsychology and is excited to be looking at colleges. Her school related stressors are thus much better and this may also be contributing to her headache improvement. Family History: No updates to family history. Current Medications: Current Outpatient Medications Medication Sig Dispense [...] No current facility-administered medications for this encounter. No Known Allergies Physical Examination: Vital Signs: BP 128/82 Ht 1.695 m (5' 6.73 ) Wt 88.3 kg (194 lb 10.7 oz) BMI 30.73 kg/m2 Wt Readings from Last 3 Encounters: 12/06/20 88.3 kg (194 lb 10.7 oz) (97 %, Z= 1.93)* 12/06/20 88.5 kg (195 lb 1.7 oz) (97 %, Z= 1.94)* 06/03/20 84.8 kg (187 lb) (97 %, Z= 1.84)* * Growth percentiles are based on CDC (Girls, 2-20 Years) data. Ht Readings from Last 3 Encounters: 12/06/20 1.695 m (5' 6.73 ) (84 %, Z= 1.00)* 12/06/20 1.669 m (5' 5.71 ) (73 %, Z= 0.60)* 10/16/19 1.654 m (5' 5.12 ) (66 %, Z= 0.42)* * Growth percentiles are based on [facility] (Girls, 2-20 Years) data. Body mass index is 30.73 kg/m??. 96 %ile (Z= 1.73) based on CDC (Girls, 2-20 Years) BMI-for-age based on BMI available as of 12/06/2020. 97 %ile (Z= 1.93) based on [facility] (Girls, 2-20 Years) [id number] data using vitals from 12/06/2020. 84 %ile (Z= 1.00) based on [facility] (Girls, 2-20 Years) Hjuguhw-iek-trk data based on Stature recorded on 12/06/2020. General: well developed, well nourished. Mildly overweight. Pleasant and conversational. CV: RRR Resp: CTAB Abdomen: S, NT, BS+ Extr: No edema, +2 pulses Neurological Exam: MS: awake, alert, appropriate - normal mood, affect and speech. Cranial Nerves: II: Visual montelongo intact, Fundoscopic exam normal - sharp flat discs b/l. III:PERRLA III,IV,: EOMI V: Facial sensation intact and symmetric VII: Facial expressions symmetric VIII: Hearing intact to finger rub bilaterally IX: Palate elevates symmetrically X: Uvula midline XI: Shoulder shrug strong bilaterally XII: Tongue protrudes midline Motor: Abnormal Movements: none Bulk: normal Tone: normal Reflexes: 2+ throughout, plantar reflexes downgoing Strength: 5/5 in all extremities Sensory: Intact to light touch, temperature Cerebellar: Normal FNF, KAIDEN's, no dysdiadochokinesia, steady in Romberg stance Gait: Normal toe/heel/tandem walk Normal neck, back. Imaging: HCT (10/01/2019): TECHNIQUE: CT of the [...] IMPRESSION ?? No acute intracranial CT abnormality. Assessment: ICD-10-CM 1. Chronic daily headache R51.9 Plan: Chronic daily headache Chronic daily headaches have been less intense since restarting nortriptyline and also reduction inschool stressors (since she has graduated). No changes [...] Call for any interim concerns and updates Follow up: 6 months Education: headaches, lifestyle modifications, medication benefits, side effects STICK WORKER documented in this encounter Plan of Treatment Not on file documented as of this encounter Visit Diagnoses Diagnosis Chronic daily headache- Primary Headache * Assessment & Plan Note - Valencia Álvarez MD - 12/06/2020 4:25 PM CSTAssociated Problem(s): Chronic daily headache Chronic daily headaches have been less intense since restarting nortriptyline and also reduction inschool stressors (since she has graduated). No changes [...] Call for any interim concerns and updates STICK WORKER documented in this encounter Care Teams Juice Tester Relationship Specialty Start Date End Date Mathew Garcia MD [address] [place] [phone] PCP - General Pediatrics 02/29/16 05/06/24 Vianey Cabral MD [address] [place] [address] Pediatric Gastroenterology 12/06/20 documented as of this encounter
--- OUTSIDE RECORDS SUMMARY | 2024-11-24 14:34 | XMS_ITS | Encounter Summary ---
Author Organization [facility] Address [address] [place] [address] Care Team Providers Care Drying Equipment Operator Name Role Phone Mathew Garcia MD Primary Care Provider [phone] Reason for Referral * Radiology Services (Routine) - Closed Specialty Diagnoses / Procedures Referred By Contac t Referred To Contact Diagnoses Persistent headaches Procedures MRI BRAIN NON CONTRAST Angie Casas MD [address] [place] [phone] Referral ID Status Reason Start Date Expiration Date Visits Re quested Visits Authorized [id number] Closed 08/17/2016 02/13/2017 1 1 Reason for Visit * Radiology Services (Routine) - Closed Specialty Diagnoses / Procedures Referred By Contac t Referred To Contact MRI Procedures [place] MRI BRAIN Nico Luque MD [address] [place] [id number] [place] [address] [facility] [address] [place] [address] Referral ID Status Reason Start Date Expiration Date Visits Re quested Visits Authorized [id number] Closed 08/17/2016 02/13/2017 1 1 Encounter Details Date Type Department Care Team (Late st Contact Info) Description 08/17/2016 1:52 PM CDT - 08/17/2016 11:59 PM CDT Hospital Encounter [facility] - MRI [address] [facility] [place] [address] Angie Casas MD [address] [address] Discharge Disposition: Home or Self Care Social [...] on file documented as of this encounter Medications at Time of Discharge Medication Sig Dispensed Refills Start Date End Date Multiple Vitamin (MULTI VITAMIN DAILY PO) acetaminophen (TYLENOL) 325 MG tablet Take 650 mg by mouth every 4 hours as needed for Fever or Pain Maximum allowable Acetaminophen amount = 4 Grams (4000 mg) / 24 hours. 09/29/2016 ibuprofen (MOTRIN) 200 MG tablet Take 600 mg by mouth every 6 hours as needed for Pain 09/29/2016 SUMAtriptan (IMITREX) 25 MG tablet Take 25 mg by mouth once as needed for Migraine 6 topiramate (TOPAMAX) 25 MG tabletIndications:Romel hesham 2 tabs at bedtime Reasons: Migraine Headache 60 Tab 4 04/04/2016 09/29/2016 documented as of this encounter Plan of Treatment Not on file documented as of this encounter Procedures Procedure Name Priority Date/Time Associated Diagnosis Comments MRI BRAIN WO CONTRAST Routine 08/17/2016 3:04 PM CDT Persistent headaches documented in this encounter Results * MRI BRAIN NON CONTRAST (08/17/2016 3:04 [...] this report. Angie Casas MD MR ORDERABLES documented in this encounter Visit Diagnoses Diagnosis Persistent headaches Headache documented in this encounter Care Teams Drying Equipment Operator Relationship Specialty Start Date End Date Mathew Garcia MD [address] [place] [address] PCP - General Pediatrics 02/29/16 05/06/24 documented as of this encounter
--- OUTSIDE RECORDS SUMMARY | 2024-11-24 14:34 | XMS_ITS | Encounter Summary ---
Author Organization [facility] Address [address] [place] [address] Care Team Providers Care Preschool Assistant Name Role Phone Mathew Garcia MD Primary Care Provider [phone] Reason for Visit * Reason Comments Headache states headaches sta rted about 2 years ago, c/o headaches every to every other day Encounter Details Date Type Department Care Team (Latest Contact Info) Description 04/04/2016 2:15 PM CDT - 04/04/2016 11:59 PM CDT Hospital Encounter [facility] - [facility] [place] [address] Nico Méndez MD [address] [place] [address] Dept [id number] [place] [address] Discharge Disposition: Home or Self [...] Sign Reading Time Taken Comments Blood Pressure 122/78 04/04/2016 2:28 PM CDT Pulse - - Temperature - - Respiratory Rate - - Oxygen Saturation - - Inhaled Oxygen Concentration - - Weight 88.3 kg (194 lb 10.7 oz) 04/04/2016 2:28 PM CDT Height 164.2 cm (5' 4.65 ) 04/04/2016 2:28 PM CD T Body Mass Index 32.75 04/04/2016 2:28 PM CDT Body Mass Index Percentile 98.95% 04/04/2016 2:2 8 PM CDT Growth Chart: [facility] (Girls, 2- 20 Years) documented in this encounter Medications at Time [...] 04/04/2016 09/29/2016 documented as of this encounter Progress Notes * Nico Méndez MD - 04/16/2016 8:02 AM CDT [address] [address] DEPARTMENT OF NEUROLOGY NAME: NAMITA REYES : 2005 UNIT #: [id number] CSN #: [id number] DATE SEEN: 04/16/[address] Garcia: I saw Namita Amy in consultation in Neurology Clinic at the [facility] on April 04. She is a12-1/2-year-old girl who began having headaches many years ago at the age of 1. In the past, these would only occur about twice a year in a typical fashion of a migraine, but about 6 months ago they became very frequent. She has more than one kind of headache now. She has had an interval for a solid month in January when she had a headache every day of about 6/10 intensity which was typically squeezing in quality, and very uncomfortable but manageable. Some days that month and subsequently she has developed a more typical migraine with bitemporal throbbing, pounding, a pain 9/10 in intensity with associated nausea and vomiting. With more severe headaches, she is sensitive to both light and sound and she cannot communicate or interact because she feels so exhausted and zombie like. Triggers to her headache have included a sudden exposure of fluorescent light or bright lights. She does not particularly have a food triggerto her knowledge. The patient does get them some school days and has missed a total of 11 days this term due to migraine headache. She has not had a headache with aphasia, ataxia, hemiparesis. The patient's review of systems is remarkable for a weight gain of 20 pounds over the last 6 months. She denies any excessive thirst or urination, but her weight is now at the 99th percentile and length at the 90th. Her blood pressure also to my evaluation is at the 95th percentile even given her body height and age. Her pressure was 122/78. The patient denies diplopia or tinnitus consistently. Sometimes she has a ringing, high pitch, intermittently. She cannot lateralize it to either ear. She denies headache accentuated by Valsalva or other features suggestive of pseudotumor. The patient has been taking some intermittent ibuprofen for headache. A trial of sumatriptan 25 mg was employed but she says that it makes her too sleepy. The patient's family history is negative for specific migraine. The patient's past medical history was relatively benign with prematurity at 9 weeks due to [place]. The children were delivered by section. She was noted to have a ptosis of the left eye which persists. 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 She lives with mother, father, a twin sister, and an older sister, Diana. REVIEW OF SYSTEMS: The patient's review of systems is also remarkable for problems falling asleep. She gets very moodywhen she has one of her migraine attacks and sometimes sleeps during the day and then does not sleep well at night. She does get some degree of snoring but will wake up at night at least once a monthwith difficulty with return to sleep. She has not had specific psychiatric problems and generally gets along well with her peers. She has never had a hospitalization or surgery and has no known drug allergies. Her exam reveals the aforementioned overweight status. Again, her blood pressure is marginally elevated but funduscopic exam revealed sharp discs and intact pulsations. She had no organomegaly but does have central obesity and a few striae. She is developing standards Fernando stage 3-4 development. She is not yet menarchal. Namita's eye movements were complete. Visual montelongo full to confrontation. Pupillary responses intact to light and accommodation. Facies were symmetrical. Her tongue moved symmetrically and palate elevated in the midline. Hearing was preserved bilaterally without any tinnitus at that time. Her sternocleidomastoid and trapezius function were normal. Her motor power and tone were symmetrical. Deep tendon reflexes equal and her gait and brief tandem walk were normal. Upon further review, the patient has been visiting the nurse regularly in school and has been usingibuprofen 3 tablets somewhat excessively. She recently just stopped this. IMPRESSION: 1. Migraine headache without aura. 2. History of chronic daily headache transformed. RECOMMENDATIONS: I have suggested avoiding over use of analgesia and preferred to use 2 Aleve tablets p.r.n. only when absolutely necessary. We will initiate a preventive therapy with topiramate 50 mg at bedtime. This would get started at 25 at bedtime and advanced over a few days. Thereafter a followup was suggested neurologically in this clinic in 5 months' time. Questions can be directed to me at the Department of Neurology, [facility]. Sincerely, Dictated By: NICO MÉNDEZ MD ELLA/Glenis JOB ID: [id number] cc: Mathew Garcia M.D. cc: Mathew Garcia M.D. DEPARTMENT OF NEUROLOGY * Nico Méndez MD - 04/04/2016 3:17 PM CDT Images from the original note were not included. See dictated note to PMD. DX: migraine without aura/ chronic daily bartlett. Advised topamax 50 hs in titration and prn Naproxen 250. F/u 5 months. tjg documented in this encounter Plan of Treatment Not on file documented as of this encounter Visit Diagnoses Diagnosis Migraine without aura and without status migrainosus, not intractable- Primary Migraine without aura, without mention of intractable migraine without mention of status migrainosus Chronic daily headache Headache documented in this encounter Care Teams Preschool Assistant Relationship Specialty Start Date End Date Mathew Garcia MD [address] [place] [address] PCP - General Pediatrics 02/29/16 05/06/24 documented as of this encounter
--- OUTSIDE RECORDS SUMMARY | 2024-11-24 14:34 | XMS_ITS | Encounter Summary ---
Author Organization [facility] Address [facility] [place], [place] [id number] [place] [address] Care Team Providers Care Dental Equipment Repairer Name Role Phone Unavailable Primary Care Provider Unavailabl e Encounter Details Date Type Department Care Team (Late st Contact Info) Description 2005 Abstract [facility] [place] [address] Clare Rubin MD [address] [place] [id number] Social History Tobacco Use Types Packs/Day Years Used Date Smoking Tobacco: Never Assessed Comments Unknown Sex and Gender Information Value Date Recorded Sex Assigned at Not on file Legal Sex Female 5:07 PM CDT Gender Identity Not on file Sexual Orientation Not on file documented as of this encounter Plan of Treatment Not on file documented as of this encounter Visit Diagnoses Not on filedocumented in this encounter
--- OUTSIDE RECORDS SUMMARY | 2024-11-24 14:34 | XMS_ITS | Encounter Summary ---
Author Organization [facility] Address [address] [place] [address] Care Team Providers Care Commercial Sales Consultant Name Role Phone Mathew Garcia MD Primary Care Provider [phone] Reason for Visit * Auth/Cert Specialty Diagnoses / Procedures Referred By Mercedez perez Referred To Contact Diagnoses Acute adenotonsillitis Lesion of nasopharynx Acute adenotonsillitis Lesion of nasopharynx Procedures TONSILLECTOMY AND ADENOIDECTOMY Referral ID Status Reason Start Date Expiration Date Visits Re quested Visits Authorized [id number] 1 1 Encounter Details Date Type Department Care Team (Latest Contact Info) Description 10/06/2016 11:39 AM SENIOR SHAREPOINT ARCHITECT - 10/06/2016 5:45 PM [facility] Hospital Encounter [facility] [address] [place] [address] [place] [address] [place] [address] Surgery General Discharge Disposition: Home or Self [...] Sign Reading Time Taken Comments Blood Pressure 124/74 10/06/2016 5:15 PM SENIOR SHAREPOINT ARCHITECT Pulse 59 10/06/2016 5:15 PM SENIOR SHAREPOINT ARCHITECT Temperature 36.2 ??C (97.2 ??F) 10/06/2016 3:12 PM CS T Respiratory Rate 14 10/06/2016 5:15 PM SENIOR SHAREPOINT ARCHITECT Oxygen Saturation 95% 10/06/2016 5:15 PM SENIOR SHAREPOINT ARCHITECT Inhaled Oxygen Concentration - - Weight 88.3 kg (194 lb 10.7 oz) 016 11:45 AM SENIOR SHAREPOINT ARCHITECT Height 168.2 cm (5' 6.22 ) 10/06/2016 1 1:45 AM SENIOR SHAREPOINT ARCHITECT Body Mass Index 31.21 10/06/2016 11:45 AM SENIOR SHAREPOINT ARCHITECT Body Mass Index Percentile 98.01% 10/06 11:45 AM SENIOR SHAREPOINT ARCHITECT Growth Chart: [facility] (Girls, 2- 20 Years) documented in this [...] 10/06/2016 documented as of this encounter Discharge Summaries * Freeman Domingo MD - 10/06/2016 5:45 PM CST Images from the original note were not included. SAME DAY SURGERY DISCHARGE SUMMARY Patient ID: Name: Namita Reyes MR#: [id number] Date of : 2005 Age: 11 y.o. Discharge Date: 10/14/2016 Discharge Diagnosis: ATH Procedure: adenotonsillectomy with removal of nasopharynx cyst Discharge Condition: Stable Discharge Medication: Please see Discharge Instructions for a complete list of medications. Discharge Procedure Orders Soft diet -- Namita will need a soft or liquid diet for a few days due to swelling or tissue irritation. -- Increase fluid intake as her discomfort eases. -- A regular diet may be resumed as soon as she can tolerate it. Return to work/school Namita may return to school 1 week from today. -- Activity limits include: No gym or physical activity for next 2 weeks Apply ice --Apply ice to procedure area, if Namita is in pain. Post-anesthesia instructions Namita has just had a procedure that required sedation, and should not be left unattended today, since there is a higher risk of falling after having anesthesia. Even though Namita may be awake and alert when she leaves the hospital, the effects of the sedation will most likely be present for at least 4 - 6 hours. A quiet day is recommended. Namita should not drive a vehicle, operate farm equipment or heavy machinery, or use the stove to cook for the next 24 hours. When to go to the Emergency Room Go to the nearest Emergency Room for any of the following:?? -- a fever higher than 102F?? -- for pain that gets worse or does not get better after taking pain medication(s) as directed?? -- bright red bleeding that lasts more than 3 minutes?? -- if Namita has a hard time breathing, or is taking fast, shallow breaths?? -- if Namita is making a high-pitched, harsh sound when she takes a breath?? -- fingernails, lips, or tongue/gums look blue?? -- if you can see Namita's abdomen and rib cage muscles move inward when she takes a breath?? -- if Namita is exhaused, or is not as alert?? -- if Namita has constant vomiting, or cannot eat or drink When to call provider -- Bad breath may occur for up to 2 weeks after surgery, and is not a cause for concern. -- Ear pain is common after surgery, and comes from the throat -- Call ENT if you have questions or concerns, or for any of the following issues: [phone] and ask for ENT Follow up with provider Order Specific Question Answer Comments Follow Up Instructions: 3 months Freeman Domingo MD OR SHAREPOINT ARCHITECT documented in this encounter Discharge Instructions * Discharge Instructions* Shimon Batista RN - 10/06/2016 3:44 PM SENIOR SHAREPOINT ARCHITECT Tonsillectomy and Adenoidectomy For Children 7 years and older Introduction Your child is going to have a T & A (Tonsillectomy & Adenoidectomy). Removal of the tonsils and/or adenoids is one of the most frequently performed throat operations. It has proven to be a safe, effective surgical method to resolve breathing obstruction, throat infections, and manage recurrent childhood ear disease. Several areas of concern are discussed here to help you and your child with this surgery. Bleeding Bleeding is rare after surgery. However,you may notice little spots of blood from the mouth or noseat times after surgery. If spotting continues after using a saline nasal spray or drinking a glass of ice water or if there is more than minor spotting proceed to the ER for evaluations Wound Care If her nose is congested or draining mucous, gently use a saline nasal spray up to 4 times a day, as needed. Pain Following T & A surgery, pain is an unpleasant side effect; it will occur in varying degrees depending upon your child. The pain your child may experience after surgery will be similar to the pain she had before surgery with throat infections. Ear pain can occur after tonsil surgery; most typically this will be noted three to five days after surgery. Although the pain is sensed in the ear, itis actually referred from the tonsil. Remember, this is normal and can be well controlled with proper administration of the prescribed medications. It has also been found that chewing gum helps to prevent this pain. Following surgery, give your child prescribed pain medication every four hours for the first 3 dayseven if she is not having pain. This offers the best continuous pain relief. After 3 days you may switch to plain Acetaminophen alternating with Ibuprofen every 3 hours for pain relief and give prescription medication as needed. Remember, though, DO NOT give your child Aspirin! This can cause bleeding. Fever Your child may have a low-grade fever after surgery. This is normal, and it can be controlled by the use of Tylenol. Call the doctor if the fever is above 102 orally (in the mouth), 101 axillary or103 rectally (in the rectum). Diet It will be very important for your child to maintain her hydration during the post -op period. Thus, she must be encouraged to drink adequate amounts. The more fluid your child drinks, the sooner her throat will return to normal. By giving the pain medicine every four hours, your child's throat will be less sore. This will make it easier for her to drink liquids. If your child is tolerating clear liquids, the diet may be advanced. Any liquid or solid food may be taken, however, hard foods such as chips, may cause pain for your child. Remember, though, the intake of fluids is critical to prevent dehydration. If the child becomes partially dehydrated, the pain will increase. Some suggestions for liquids are: fruit juice, Gatorade, milk, flat soda, jello, popsicles, ice cream, water or nutritional supplement drinks. Activity Most children will naturally restrict their activity after surgery. It is usually good to stay inside the house for a few days. She may return to school six to seven days after surgery; however, no gym or vigorous activity for 2 weeks after surgery. Bad Breath Your child may have bad breath after a T & A. The raw areas where the tonsils were will become whitish in color and may smell bad. As the area heals, the odor will go away. Do not have your childgargle during this time. For questions or Emergency Care: Call the office at during the week or after 5 pm and on the weekends. You may need to speak with the [id number]. OR SHAREPOINT ARCHITECT documented in this encounter Medications at Time [...] 10/09/2016 10/01/2019 documented as of this encounter H&P Notes * Freeman Domingo MD - 10/06/2016 5:45 PM CST Otolaryngology Short Stay Form Patient name: Namita Reyes Date of : 2005 Today's Date: 10/14/2016 HPI: Namita Reyes is a 11 y.o. female with a history of chronic recurrent tonsillitis and a cystic lesion of the nasopharynx, who presents for adenotonsillectomy and removal of the cyst. REVIEW OF SYMPTOMS: Within normal limits except as above MEDICATIONS: No current facility-administered medications on file prior to encounter. Current Outpatient Prescriptions on File Prior to Encounter Medication Sig Dispense Refill ??? Multiple Vitamin (MULTI VITAMIN DAILY PO) ALLERGIES: No Known Allergies IMMUNIZATIONS: UTD DEVELOPMENTAL HISTORY: Age appropriate PREVIOUS SERIOUS ILLNESS/SURGERY: Past Surgical History Procedure Laterality Date ??? Tonsillectomy and adenoidectomy N/A 10/06/2016 N/A; TONSILLECTOMY AND ADENOIDECTOMY, RIGHT REMOVAL OF MASS (NASOPHARYNX CYST) PREVIOUS CHILDHOOD ILLNESS: Past Medical History Diagnosis Date ??? History of migraine headaches ??? infant 31 weeks gestation- NICU for 17 days-twin ??? Twin , mate liveborn twin sister PERINENT FAMILY / SOCIAL HISTORY: No family history on file. PHYSICAL EXAM: BP 124/74 Pulse 59 Temp 97.2 ??F Resp 14 Wt 88.3 kg (194 lb 10.7 oz) BMI 31.21 kg/m2 GEN: NAD HEAD: NCAT EYES: EOMI EARS: deferred NOSE: patent THROAT: clear NECK: supple HEART: Regular rate and rhythm, normal pulses and capillary refill LUNGS: clear to auscultation, no wheezes, rales, or rhonchi ABDOMEN: Abdomen is soft, no tenderness, masses, or organomegaly EXTREMITIES: no clubbing, cyanosis or edema NEURO: no focal findings or movement disorder note SKIN: wnl ASSESMENT: Namita Reyes is a 11 y.o. female with chronic tonsillitis and a nasopharynx cyst. PLAN: T&A with removal of nasopharynx cyst. The risks, benefits, and alternatives of the proposed treatments were discussed. All questions were answered. The family made an informed decision to proceed. Freeman Domingo MD OR SHAREPOINT ARCHITECT documented in this encounter OR Notes * Operative - Freeman Domingo MD - 10/06/2016 4:34 PM CST [address] [address] OPERATIVE REPORT NAME: NAMITA REYES : 2005 UNIT #: [id number] CSN #: [id number] DATE OF OPERATION: 10/06/2016 ATTENDING SURGEON: FREEMAN DOMINGO MD PROCEDURE: Tonsillectomy and adenoidectomy and removal of nasopharyngeal cystic lesion. SURGEON: Freeman Domingo MD TICK INSPECTOR: None. ANESTHESIA: General endotracheal. PREOPERATIVE DIAGNOSES: Chronic recurrent tonsillitis and adenoiditis as well as a nasopharyngeal cyst. POSTOPERATIVE DIAGNOSES: Chronic recurrent tonsillitis and adenoiditis as well as a nasopharyngeal cyst. INDICATIONS: A 11-year-old girl with history of frequent recurrent tonsillitis and headaches with MRI showing evidence of a nasopharyngeal lesion, apparently a cyst oriented towards the right side of the nasopharynx with examination in the office showing adenoid tissue in the nasopharynx with suggestion of a cystic lesion present there close to the midline, but to the right. DESCRIPTION OF PROCEDURE: After an adequate level of general endotracheal anesthesia had been obtained and after the appropriate time-out was conducted, the patient was placed in a supine position with a mouth gag for mouth retraction. The tonsils were then removed using a Coblator. They appeared to be about 1+ in size and cryptic with cryptic collections within them of a plaque-like nature. The tonsils were removed again with the Coblator on a setting of 7 for coblation and 3 for coagulation. Coagulation was accomplished with the instrument during the course of the procedure and blood loss was minimal. The attention was turned to the nasopharynx. The palate was examined first and noted to be normal without sign of submucous cleft. The palate was retracted with 2 red rubber catheters and the nasopharynx was examined with a mirror and also with a 120 degrees Storz Andrew telescope. Photo documentation was done. It was noted that there was an apparent adenoid pad near the posterior coena which was about 1+ in size and had some small sinus pits within it and a fold in the midline. Below that, it was noted thatthere was a smooth prominence which was fairly ballotable or soft when touched with a suction and it was mainly to the right in the midline. It was decided to remove the adenoid tissue along with this lesion and apparent lesion with curettes. Therefore, adenoid curettes were used along with a [place] Saunders forceps to remove the adenoid tissue and the lesion. This caused modest amount of bleeding and during the course of the procedure about 50 mL of blood loss occurred. The bleeding was controlled with packs of tonsil balls soaked in Afrin and suction electrocautery on setting of 20 and 25. Also, the Coblator was used on a setting of 9 for coblation and 5 for coagulation to remove residual adenoid tissue and also control bleeding. After all this, when removing the tissue, it was not obvious that the cyst was present within it. However, it was all what was removed with the curette. It was sent to Pathology for gross microscopic evaluation. At the end of the procedure, the patient'spharynx was irrigated and suctioned free of blood and clots. She tolerated the procedure well and was extubated in the operating room. She then went to the recovery room in stable condition. Dictated By: FREEMAN DOMINGO MD /Rashel JOB ID: [id number] OPERATIVE REPORT OR SHAREPOINT ARCHITECT * Brief Op Note - Freeman Domingo MD - 10/06/2016 3:24 PM CST Brief Post-Operative Note 10/06/2016 Namita Reyes Date of Surgery: 10/06/2016 Surgeon(s) and Role: * Freeman Domingo MD - Primary Anesthesiologist: Beck Balbuena MD Strategic Analyst: Radha Mace MD Pre-Op Diagnosis Codes: * Acute adenotonsillitis [J03.90] * Lesion of nasopharynx [J39.2] Postoperative Diagnosis: Recurrent acute adenotonsillitis Nasopharynx lesion Procedure(s) and Anesthesia Type: * TONSILLECTOMY AND ADENOIDECTOMY, RIGHT REMOVAL OF MASS (NASOPHARYNX CYST) - General Findings: As expected Disposition: PACU Status: Stable Drains: none Pack: none Complications: none EBL: 50 mL Specimen(s): ID Type Source Tests Collected by Time Destination A : tonsils Path Tonsil(s) GROSS EXAM PATHOLOGY (STL) Freeman Domingo MD 10/06/2016 1356 B : nasal pharyngeal lesion including adenoids Path Lesion GROSS + MICRO EXAM (STL) Freeman Domingo MD 10/06/2016 1411 Implant(s): * No implants in log * Operative note dictated: yes OR SHAREPOINT ARCHITECT documented in this encounter Plan of Treatment Not on file documented as of this encounter Procedures Procedure Name Priority Date/Time Associated Diagnosis Comments PATHOLOGY TISSUE EXAM (STL) STAT 10/06/2016 2:11 PM SENIOR SHAREPOINT ARCHITECT Acute adenotonsillitis Lesion of nasopharynx GROSS EXAM PATHOLOGY (STL) STAT 10/06/2016 1:56 PM SENIOR SHAREPOINT ARCHITECT Acute adenotonsillitis Lesion of nasopharynx TONSILLECTOMY AND ADENOIDECTOMY 10/06/2016 1:19 PM SENIOR SHAREPOINT ARCHITECT Acute adenotonsillitis Lesion of nasopharynx Special Needs PL card ok'd by Cierra/BENNY (09/22)B/FLOOR HCG URINE QUALITATIVE - POCT (IP) BEAKER Routine 10/06/2016 12:00 PM SENIOR SHAREPOINT ARCHITECT documented in this encounter Results * GROSS + MICRO EXAM (STL) (10/06/2016 2:11 PM SENIOR SHAREPOINT ARCHITECT) Case Report Surgical Pathology Report ? Case: [id number] ? Authorizing Provider: ??Freeman Domingo MD ?Collected: ? 10/06/2016 02:11 PM ? Ordering Location: ? [facility] ? Received: ?10/09/2016 07:43 AM ? Pathologist: ? Roula Garcia MD ? Specimen: ?Lesion, nasal pharyngeal lesion including adenoids ? 10/10/2016 12:15 PM [facility] Final Diagnosis NASOPHARYNX, MID, LESION WITH ADENOIDS, EXCISION: - NASOPHARYNGEAL TONSILLAR TISSUE WITH LYMPHOID HYPERPLASIA. - FINDINGS SUGGESTIVE OF INCLUSION CYST, SEE DESCRIPTION. 10/10/2016 12:15 PM [facility] Clinical History The patient is a 11-year-old girl who underwent excision of a nasopharyngeal lesion including the adenoid tonsils. Imaging (MRI) disclosed a cystic nasopharyngeal lesion oriented close to the midline but towards the right. 10/10/2016 12:15 PM [facility] Gross Description Submitted fixed in formalin in one container for gross and microscopic examination labeled with the patient's name, Namita Reyes and mid nasopharyngeal lesion with adenoids, are three irregularly shaped fragments of haider-edmonds lymphoid tissue admixed with dark red blood clot. The specimen has an aggregate measurement of 2.5 x 2 x 1 cm and weighs 1 gram. The specimen is serially sectioned, and cut surface demonstrates soft, haider-edmonds lymphoid tissue. The specimen is entirely submitted in cassettes A1 and A2. (CT/alj) 10/10/2016 12:15 PM [facility] Microscopic Description 2 H&E. Sections show nasopharyngeal tonsils comprising lymphoid tissue, respiratory glands, and striated muscle partially lined by stratified squamous epithelium transitioning to sinonasal-type respiratory epithelium. The lymphoid architecture is largely preserved, distorted only by conspicuous secondary follicle formation. There is focal cystic expansion of the sinonasal-type epithelium suggestive of an inclusion cyst. No epithelial atypia is identified. (/SES/scs). 10/10/2016 12:15 PM [facility] Disclaimer The performance characteristics of all immunohistochemical and indirect immunofluorescence stains (if any) cited in this report were determined by the [facility] of [facility]. Some of these tests were developed by our own laboratory and have not been cleared or approved by the US Food and Drug Administration (FDA). The FDA does not require this test to go through premarket FDA review. These tests are used for clinical purposes. They should not be regarded as investigational or for research. This laboratory is certified under the Clinical Laboratory Improvement Amendments (CLIA) as qualified to perform high complexity clinical laboratory testing. This case has been personally reviewed and interpreted by the attending (teaching) pathologist. 10/10/2016 12:15 PM [facility] Embedded Images 10/10/2016 12:15 PM [facility] Pathology/Cytolo gy LESION SPECIMEN / Unknown 10/06/2016 2:11 PM SENIOR SHAREPOINT ARCHITECT 10/09/2016 7:43 AM SENIOR SHAREPOINT ARCHITECT Freeman Domingo MD LAB - PATHOLOGY/CYTO LOGY ORDERABLES Performing Organization Address [facility]/State/[facility] Co de Phone Number [facility] [address] [place] [address] * GROSS EXAM PATHOLOGY (STL) (10/06/2016 1:56 PM SENIOR SHAREPOINT ARCHITECT) Case Report Surgical Pathology Report ? Case: [id number] ? Authorizing Provider: ??Freeman Domingo MD ?Collected: ? 10/06/2016 01:56 PM ? Ordering Location: ? [facility] ? Received: ?10/06/2016 02:51 PM ? Pathologist: ? Roula Garcia MD ? Specimen: ?Tonsil(s), tonsils ? 10/09/2016 8:13 AM [facility] Final Diagnosis GROSS DIAGNOSIS: PALATINE TONSILS. 10/09/2016 8:13 AM [facility] Clinical History The patient is a 11-year-old girl with acute adenotonsiliti s. 10/09/2016 8:13 AM [facility] Gross Description Submitted fresh in [...] sections are taken. (CT/me) 10/09/2016 8:13 AM [facility] Embedded Images 10/09/2016 8:13 AM [facility] Pathology/Cytolo gy SPECIMEN FROM TONSIL / Unknown 10/06/2016 1:56 PM SENIOR SHAREPOINT ARCHITECT 10/06/2016 2:51 PM SENIOR SHAREPOINT ARCHITECT Freeman Domingo MD LAB - PATHOLOGY/CYTO LOGY ORDERABLES [facility] [address] [place] [address] * HCG URINE QUALITATIVE - POCT (IP) CONOR (10/06/2016 12:00 PM SENIOR SHAREPOINT ARCHITECT) HCG Qual Urine Negative Negative [facility] POCT TESTING QC Verified Yes Yes [facility] PO CT TESTING Urine URINE / Unknown 10/06/2016 1 2:00 PM SENIOR SHAREPOINT ARCHITECT Freeman Domingo MD LAB - POINT OF CARE ORDERABLES [facility] POCT TESTING [address] [phone] documented in this encounter Visit Diagnoses Diagnosis Acute adenotonsillitis Acute tonsillitis Lesion of nasopharynx Unspecified disease of pharynx Recurrent acute tonsillitis Acute tonsillitis documented in this encounter Administered Medications Inactive Administered Medications - up to 3 most recent administrations Medication Order MAR Action Action Date Dose Rate Site isolyte-S pH 7.4 infusion 100 mL/hr, Intravenous, POST-OP CONTINUOUS, Starting on Sun10/06/16 at 1515, Until Sun10/06/16 at 1904, PACU Current Rate 10/06/2016 3:12 PM SENIOR SHAREPOINT ARCHITECT 100 mL/hr 100 mL/hr morphine injection 2 mg 2 mg, Intravenous, POST-OP MULTIPLE, Starting on Sun10/06/16 at 1514, Until Sun10/06/16 at 1904, May repeat first dose every 5 minutes. Max dose 6 mg. DO NOT EXCEED MORPHINE 0.2 mg/kg/hr IV. High Risk, High Alert Medication: Must document double check on IV MAR Flowsheet, PACU $ Given 10/06/2016 4:17 PM SENIOR SHAREPOINT ARCHITECT 2 mg $ Given 10/06/2016 3:57 PM SENIOR SHAREPOINT ARCHITECT 2 mg $ Given 10/06/2016 3:27 PM SENIOR SHAREPOINT ARCHITECT 2 mg documented in this encounter Active and Recently Administered Medications Times are shown in SENIOR SHAREPOINT ARCHITECT. Scheduled Medication Order 10/04/2016 10/05/2016 10/06/2016 morphine injection 2 mg 2 mg, Intravenous, POST-OP MULTIPLE, Starting on Sun10/06/16 at 1514, Until 11/11/16 at 1904, May repeat first dose every 5 minutes. Max dose 6 mg. DO NOT EXCEED MORPHINE 0.2 mg/kg/hr IV. High Risk, High Alert Medication: Must document double check on IV MAR Flowsheet, PACU 1527 ($ Given - Prov ider: Shimon Batista RN)1557 ($ Given - Provider: Shimon Batista, MELANY)1617 ($ Given - Provider: Shimon Batista RN) Continuous Medication Order 10/04/2016 10/05/2016 10/06/2016 isolyte-S pH 7.4 infusion 883 mL 883 mL (10 mL/kg ? 88.3 kg), Intravenous, POST-OP CONTINUOUS, Starting on Sun10/06/16 at 1545, Until Sun10/06/16 at 1904, ...Please hold IVF until requested by nurse, Post-op 1512 (Not Administer ed - Provider: Shimon Batista RN - Reason: See Comments - Comment: duplicate see MAR) isolyte-S pH 7.4 infusion 100 mL/hr, Intravenous, POST-OP CONTINUOUS, Starting on Sun10/06/16 at 1515, Until Sun10/06/16 at 1904, PACU 1512 (Current Rate - Provider: Shimon Batista RN)1722 (Stopped - Provider: Shimon Batista RN) PRN Medication Order 10/04/2016 10/05/2016 10/06/2016 0.9% nacl irrigation solution (CANCELED) PRN, Starting on Sun10/06/16 at 1352, Until Sun10/06/16 at 1519, Intra-op 1352 ($ Given - Prov ider: Freeman Domingo MD) acetaminophen (TYLENOL) suspension 650 mg 650 mg, Oral, EVERY 4 HOURS PRN, Mild Pain, Starting on Sun10/06/16 at 1539, Until Sun10/06/16 at 1904, Post-op HYDROcodone-acetaminophen 7.5-325 MG/15ML solution 5 mL 5 mL, Oral, EVERY 4 HOURS PRN, Moderate Pain, Starting on Sun10/06/16 at 1539, Until Sun10/06/16 at 1904, Post-op oxymetazoline (AFRIN) 0.05 % nasal spray (CANCELED) PRN, Starting on Sun10/06/16 at 1406, Until Sun10/06/16 at 1519, Intra-op 1406 ($ Given - Prov ider: Freeman Domingo MD - Comment: Afrin soaked tonsil balls, topical to throat) documented in this encounter Care Teams Commercial Sales Consultant Relationship Specialty Start Date End Date Mathew Garcia MD [address] [place] [address] PCP - General Pediatrics 02/29/16 05/06/24 documented as of this encounter
--- OUTSIDE RECORDS SUMMARY | 2024-11-24 14:34 | XMS_ITS | Clinical Summary ---
Author Organization [facility] Address [address] [place] [address]. [place], [place] [address] [place] [id number] Care Team Providers Care Sharemilker Name Role Phone Unavailable Primary Care Provider Unavailabl e Social History Tobacco Use Types Packs/Day Years Used Date Smoking Tobacco: Never Assessed Comments Unknown Sex and Gender Information Value Date Recorded Sex Assigned at Not on file Legal Sex Female 5:07 PM CDT Gender Identity Not on file Sexual Orientation Not on file Plan of Treatment Health Maintenance Due Date Last Done Comments Cervical Cancer Screening Pa p Smear (Age 21 to 29) Every 3 Years 2003 Cervical Cancer Screening 2003 Annual Physical 2006 HPV Vaccines (1 - 3-dose series) 2018 Hepatitis C 2021 DTaP, Tdap and Td Vaccines ( 1 - Tdap) 2022 Hepatitis B Vaccines (1 of 3 - 19+ 3-dose series) 2022 COVID-19 Vaccine ( - 2023-2 5 season) 2024 Influenza Adult (#1) 2024 Meningococcal Vaccine Aged Out No sorin mariela eligible based on patient's age to complete this topic Pneumococcal Vaccine: Pediat rics (0 to 5 Years) and At-Risk Patients (6 to 64 Years) Aged Out No longer eligible b ased on patient's age to complete this topic RSV Immunizations Under 20 Months Aged Out No longer eligible based on patient's age to complete this topic
--- OUTSIDE RECORDS SUMMARY | 2024-11-24 14:34 | XMS_ITS | Encounter Summary ---
Author Organization [facility] Address [address] [facility] [place] [address] Care Team Providers Care Flat Clothier Name Role Phone Mathew Garcia MD Primary Care Provider [phone] Reason for Visit * Auth/Cert Specialty Diagnoses / Procedures Referred By Mercedez perez Referred To Contact Diagnoses Acute adenotonsillitis Lesion of nasopharynx Acute adenotonsillitis Lesion of nasopharynx Procedures TONSILLECTOMY AND ADENOIDECTOMY Referral ID Status Reason Start Date Expiration Date Visits Re quested Visits Authorized [id number] 1 1 Encounter Details Date Type Department Care Team (Late st Contact Info) Description 10/06/2016 1:30 PM WHIZZER OPERATOR Anesthesia Event [facility] - Periop [address] [place] [id number] Beck Balbuena MD [address] [place] [address] Radha Mace MD [address] [place] [id number] Anesthesia Record Procedure Summary Procedure Name Responsible Anesthesiologist Anesthesia Start Time Anesthesia Stop Time TONSILLECTOMY AND ADENOIDECTOMY, RIGHT REMOVAL OF MASS (NASOPHARYNX CYST) (Throat) Beck Balbuena MD 10/06/16 1330 10/06/16 1514 Events Date Time Event Comment 10/06/2016 1251 1330 An Start 1330 An Start Data 1336 PT Reassessment Patient and Vital Signs reassessed prior to induction. 1336 An Induction 1339 An Intubation 1345 Time Out Anesthesia part icipated in timeout at the time documented in the record by nursing 1454 An Emergence 1506 Extubation 1508 an stop data 1510 ANPTO2 1514 Handoff Checklist follo wed: 1. Identification of patient 2. Identification of responsible nurse 3. Discussion of pertinent medical history 4. Discussion of surgical/procedure course 5. Intraoperative anesthetic management and concerns 6. Expectations/plans for the early post-procedure period 7. Opportunity for questions and acknowledgement of report 1514 An Stop 1516 Elect Sign The providers l isted as staff are the responsible providers for the case. Meds Name Total fentaNYL (SUBLIMAZE) injection 0.05 mg/m L 65 mcg ondansetron (ZOFRAN) 2mg/mL injection 4 mg dexamethasone (DECADRON) 4 mg/mL injecti on 4 mg lidocaine (XYLOCAINE MPF) 2% injection 4 0 mg propofol (DIPRIVAN) 10 mg/mL 230 mg rocuronium (ZEMURON) 10mg/ml 25 mg sugammadex (BRIDION) injection 180 mg morphine 2 mg/ml PF injection 1 mg isolyte-S pH 7.4 infusion 400 mL * Agents Name Insp. N2O Exp. Sevoflurane Insp. Sevoflurane * Blood No blood administrations on file. Lines, Drains, and Airways Type Details Placement Removal Peripheral IV Date: 10/06/16; Time : 1217; Orientation: Left; Placed By: Fly MOSLEY; Tolerance: Well 10/06/16 1217 by Carlee Romero RN 10/06/16 1722 by Shimon Batista RN ETT Date: 10/06/16; Time : 1339; Placed By: MD Rodri; Vent: easy mask; Induction: Standard IV; Blade Type: Frank; Blade Size: 3; Laryngoscopy View: Grade 1 (full cords); Tube: Delia tube; Placement: Oral; Tube Type: Cuffed-inflated; Tube Size(mm): 7 MM; Cuff Infated: Air; Cuff Pressure(cm H2O): 20 cm H2O; Cuff Vol(mL): 1 mL; Verified By: Direct visualization, Bilateral breath sounds, Chest Auscultation, CO2 Monitor 10/06/16 1339 by Radha Mace MD 10/06/16 1506 by Radha Mace MD RETIRED Procedural Site 10/06/16; 1352; Mid; Tonsil beds (adenoids); 10/07/16; 0004 10/06/16 1352 by Ranjana Jones RN 10/07/16 0004 by Generic, Auto Release documented in this encounter Social History Tobacco [...] on file documented as of this encounter Progress Notes * Beck Balbuena MD - 10/06/2016 4:11 PM CST ANESTHESIA POSTPROCEDURE EVALUATION Namita Reyes is a 11 y.o. female Temp: 36.2 ??C Pulse: 69 Resp: 14 BP: (!) 128/78 SpO2: 96 % Pain Rating Score #1: 8 Anesthesia Type: general Mental status: neurologic status has returned to expected level of consciousness. Level of consciousness: awake No numbness, tingling or visual disturbances present. General appearance: in no acute distress Respiratory function: natural airway. Cardiac: stable Pain: comfortable/acceptable PONV: None Postop hydration: adequate. Patient may be released from anesthesia care. Perioperative Complications: No value filed. ASA/AQI Tracking Events: No value filed. ZER OPERATOR documented in this encounter Consult Notes * Beck Balbuena MD - 10/06/2016 12:50 PM CST Pre-anesthesia Evaluation Procedure(s): TONSILLECTOMY AND ADENOIDECTOMY, RIGHT REMOVAL OF MASS (NASOPHARYNX CYST) (N/A Throat) Diagnosis: Acute adenotonsillitis [J03.90];Lesion of nasopharynx [J39.* Vital Signs: Temp: 36.8 ??C (10/06 1145) Pulse: 80 (10/06 121) Resp: 16 (10/06 1219) BP: 147/86 (10/06 1219) SpO2: 99 % (10/06 1219) BMI: Estimated body mass index is 31.21 kg/(m^2) as calculated from the following: Height as of this encounter: 1.682 m (5' 6.22 ). Weight as of this encounter: 88.3 kg (194 lb 10.7 oz). History: Past Medical History Diagnosis Date ??? History of migraine headaches ??? 31 weeks gestation- NICU for 17 days-twin ??? Twin , mate liveborn twin sister No past surgical history on file. reports that she has never smoked. She does not have any smokeless tobacco history on file. Allergies: has No Known Allergies. Medications: Home Medications for Outpatients: Current Outpatient Prescriptions Medication Sig Dispense Refill ??? HYDROcodone-acetaminophen 7.5-325 MG/15ML solution Take 5 mL by mouth every 4 hours as needed for Pain 473 mL 0 ??? acetaminophen (TYLENOL) 160 MG/5ML solution Take 20.3 mL by mouth every 4 hours as needed for Fever or Pain 473 mL 0 ??? [START ON 10/09/2016] ibuprofen (ADVIL; MOTRIN) 100 MG/5ML suspension Take 15 mL by mouth every6 hours as needed for Pain or Fever May start using ibuprofen (ADVIL/MOTRIN) 3 days after surgery. 473 mL 0 Home Medications for Inpatients: Prescriptions Prior to Admission Medication Sig Dispense Refill ??? melatonin 5 MG tablet Take 10 mg by mouth at bedtime ??? Multiple Vitamin (MULTI VITAMIN DAILY PO) Inpatient Medications: No current facility-administered medications for this encounter. Physical Exam: NPO status: no solids since midnight, no liquids within 2 hours Airway: III Neck ROM: full Dental exam findings: normal/ok Pulmonary exam: breath sounds CTA Heart sounds: S1 S2 Spinal Alignment: symmetrical Review of Systems: Plan for Anesthesia: Reviewed allergies, history and medications ASA Score: 2. ASA Comments: Obese Anesthesia plan: general / ETT Planned method of induction: intravenous Planned postop destination: PACU Planned administration of opioids for postop analgesia Anesthesia plan, risks and benefits discussed with mother and father Anesthesia consent: obtained Plan accepted yes Discussed anesthesia plan with: resident. ZER OPERATOR documented in this encounter Plan of Treatment Not on file documented as of this encounter Visit Diagnoses Not on filedocumented in this encounter Administered Medications Inactive Administered Medications - up to 3 most recent administrations Medication Order MAR Action Action Date Dose Rate Site dexamethasone (DECADRON) injection PRN, Nausea/Vomiting, Starting on Sun10/06/16 at 1354, Until Sun10/06/16 at 1525, Anesthesia Intra-op $ Given 10/06/2016 1:54 PM WHIZZER OPERATOR 4 mg fentaNYL (PF) (SUBLIMAZE) injection PRN, Starting on Sun10/06/16 at 1336, Until Sun10/06/16 at 1525, Anesthesia Intra-op $ Given 10/06/2016 3:13 PM WHIZZER OPERATOR 25 mcg $ Given 10/06/2016 2:32 PM WHIZZER OPERATOR 15 mcg $ Given 10/06/2016 1:36 PM WHIZZER OPERATOR 25 mcg isolyte-S pH 7.4 infusion CONTINUOUS PRN, Starting on Sun10/06/16 at 1336, Until Sun10/06/16 at 1525, Anesthesia Intra-op $ New Bag/Syringe 10/06/2016 2:30 PM WHIZZER OPERATOR $ New Bag/Syringe 10/06/2016 1:36 PM WHIZZER OPERATOR lidocaine (XYLOCAINE MPF) 2 % injection PRN, Starting on Sun10/06/16 at 1336, Until Sun10/06/16 at 1525, Anesthesia Intra-op $ Given 10/06/2016 1:36 PM WHIZZER OPERATOR 40 mg morphine injection PRN, Starting on Sun10/06/16 at 1439, Until Sun10/06/16 at 1525, Anesthesia Intra-op $ Given 10/06/2016 2:39 PM WHIZZER OPERATOR 1 mg ondansetron (ZOFRAN) injection PRN, Nausea/Vomiting, Starting on Sun10/06/16 at 1442, Until Sun10/06/16 at 1525, Anesthesia Intra-op $ Given 10/06/2016 2:42 PM WHIZZER OPERATOR 4 mg propofol (DIPRIVAN) 10 mg/ml injection PRN, Sedation, Starting on Sun10/06/16 at 1336, Until Sun10/06/16 at 1525, Anesthesia Intra-op $ Given 10/06/2016 2:52 PM WHIZZER OPERATOR 30 mg $ Given 10/06/2016 1:36 PM WHIZZER OPERATOR 200 mg rocuronium (ZEMURON) injection PRN, Starting on Sun10/06/16 at 1336, Until Sun10/06/16 at 1525, Anesthesia Intra-op $ Given 10/06/2016 1:36 PM WHIZZER OPERATOR 25 mg sugammadex (BRIDION) injection PRN, Starting on Sun10/06/16 at 1452, Until Sun10/06/16 at 1525, Anesthesia Intra-op $ Given 10/06/2016 2:52 PM WHIZZER OPERATOR 180 mg documented in this encounter Care Teams Flat Clothier Relationship Specialty Start Date End Date Mathew Garcia MD [address] [place] [address] PCP - General Pediatrics 02/29/16 05/06/24 documented as of this encounter
--- OUTSIDE RECORDS SUMMARY | 2024-11-24 14:34 | XMS_ITS | Encounter Summary ---
Author Organization [facility] Address [address] [place] [address] Care Team Providers Care Computer Customer Support Specialist Name Role Phone Mathew Garcia MD Primary Care Provider Reason for Visit * Reason Comments Establish Care Nasopharynx polyp fo und on MRI. Referred by PCP. Encounter Details Date Type Department Care Team (Latest Contact Info) Description 09/11/2016 11:30 AM CDT - 09/11/2016 11:59 PM CDT Hospital Encounter [facility] - ENT [address] [facility] [place] [address] [place] [address] [place] [address] Discharge Disposition: Home or Self Care Social [...] - Inhaled Oxygen Concentration - - Weight 87 kg (191 lb 12.8 oz) 6 11:46 AM CDT Height 165.5 cm (5' 5.16 ) 09/11/2016 1 1:46 AM CDT Body Mass Index 31.76 09/11/2016 11:46 AM CDT Body Mass Index Percentile 98.32% 09/11 11:46 AM CDT Growth Chart: [facility] (Girls, 2- 20 Years) documented in this encounter Discharge Instructions * Patient Instructions* Amanda Larios LPN - 09/11/2016 12:33 PM CDT Images from the original note were not included. Your child has been scheduled for Same Day Surgery (Outpatient Surgery) A natural parent or a court appointed legal guardian MUST accompany the child DATE, TIME, & LOCATION If you know that you will not be able to keep your scheduled surgery date, please call: Sunday - Sunday, 9:00am - 4:00pm (or leave a voicemail message anytime 24hr a day/7-days a week) The surgery is: Tonsillectomy & Adenoidectomy and removal of nasal pharynx mass By Dr. Domingo on: ENT office will call with surgery date. Pre-Operative Instructions for Namita Reyes on Arrival Time: Eating/Drinking Instructions: Normal meals on until midnight. After midnight NO - FOOD/MILK OR DAIRY PRODUCTS/ORANGE JUICE/GUM/CANDY/ or TOOTHPASTE. No ibuprofen or aspirin prior to surgery. Tylenol is ok as well as any other prescribed medicationsif taken before . No vitamins/iron on day of surgery, please. Those patients havingear, nose or throat surgery NO Ibuprofen beginning 5 days before surgery and NO Aspirin products within 2 weeks of surgery. (check active ingredients on all medications.) May ONLY have WATER/APPLE JUICE/WHITE GRAPE JUICE/SPRITE OR 7-UP/PEDIALYTE from midnight until . Infants under 1 year old will have other instructions. NOTHING AT ALL AFTER! Have child take SHOWER or BATH/WASH HAIR/DRESS IN SOMETHING CLEAN AND COMFORTABLE/LOOSE FITTING/ and EASY TO GET IN AND OUT OF! Remove EARRINGS and ALL JEWELRY/FINGERNAIL KAZAKH/METAL HAIR CLIPS/BODY PIERCINGS/CONTACT LENSES before coming to the hospital. Girls who have started their menstrual cycle will need to provide a urine sample at the hospital onthe day of surgery. Bring ?? Comfort item (blanket/stuffed animal/etc.) and/or something to do before surgery starts. Nothingvaluable that can't be carried. ?? Sunglasses if you are having eye surgery. ?? Inhaler(s) if prescribed by child's doctor. Arrive on Time ?? TIME: ?? A Parent/Legal Guardian/Service Center Manager must accompany patient and obtain VISITOR PASS at the Information Desk. ?? Proceed to 2nd floor SURGERY REGISTRATION - must have parent/guardian PHOTO ID and patient INSURANCE CARD. ?? Only 2 adults may be with the child before and after surgery. No one under the age of 18 is allowed in the pre/post op areas. If you have not heard from anyone regarding time to arrive for surgery by 3 days before surgery - please call Mar at [phone] or Missy at [phone]. Sunday - Sunday 8:30am-7pm. If you need toarrange for medical transportation to and/or from the hospital please call the number on the back of your medical card 1 week before surgery. For arrival time at [facility], contact Mar/Missy at the above numbers. Please check out our video [facility] on [email or web address] or scan QR code. Thank you! 12/09/13 Tonsillectomy and Adenoidectomy For Children 7 years [...] You may need to speak with the [id number]. documented in this encounter Medications at Time of Discharge Medication Sig Dispensed Refills Start Date End Date Multiple Vitamin (MULTI VITAMIN DAILY PO) acetaminophen (TYLENOL) 325 MG tablet Take 650 mg by mouth every 4 hours as needed for Fever or Pain Maximum allowable Acetaminophen amount = 4 Grams (4000 mg) / 24 hours. 09/29/2016 amoxicillin-clavulana te (AUGMENTIN) 875-125 MG tablet Take 875 mg by mouth 2 times daily after meals 0 09/06/2016 09/29/20 16 ibuprofen (MOTRIN) 200 MG tablet Take 600 mg by mouth every 6 hours as needed for Pain 09/29/2016 SUMAtriptan (IMITREX) 25 MG tablet Take 25 mg by mouth once as needed for Migraine 6 topiramate (TOPAMAX) 25 MG tabletIndications:Romel hesham 2 tabs at bedtime Reasons: Migraine Headache 60 Tab 4 04/04/2016 09/29/2016 documented as of this encounter Progress Notes * Orion Domingo MD - 09/11/2016 12:19 PM CDT Primary Care Physician: Mathew Garcia MD Chief Complaint Patient presents with ??? Establish Care Nasopharynx polyp found on MRI. Referred by PCP. History of Present Illness: Namita is a 11 y.o. female who is here with mom for evaluation of a nasopharynx mass found on MRI done for evaluation of migraine headaches, which have not responded well to treatment. She also complains of chronic sore throat, but no nasal obstruction, snoring or sleep disturbance. On Augmentin for sore throat and axillary rash without change in either. Past medical history: History: A 31 week that was not normal due to twin . The patient did require post hospitalization for 17 days for low weight. [place] hearing screen: passed Previous Childhood Illnesses: No past medical history on file. Hospitalizations? Yes-as above Previous Surgery? No Medications: Current Outpatient Prescriptions: ??? amoxicillin-clavulanate (AUGMENTIN) 875-125 MG tablet, Take 875 mg by mouth 2 times daily aftermeals, Disp: , Rfl: 0 ??? ibuprofen (MOTRIN) 200 MG tablet, Take 600 mg by mouth every 6 hours as needed for Pain, Disp: , Rfl: ??? Multiple Vitamin (MULTI VITAMIN DAILY PO), , Disp: , Rfl: ??? acetaminophen (TYLENOL) 325 MG tablet, Take 650 mg by mouth every 4 hours as needed for Fever or Pain Maximum allowable Acetaminophen amount = 4 Grams (4000 mg) / 24 hours., Disp: , Rfl: ??? SUMAtriptan (IMITREX) 25 MG tablet, Take 25 mg by mouth once as needed for Migraine, Disp: , Rfl: ??? topiramate (TOPAMAX) 25 MG tablet, 2 tabs at bedtime Reasons: Migraine Headache, Disp: 60 Tab, Rfl: 4 Allergies: Review of patient's allergies indicates no known allergies. Immunizations: are up to date Growth and development: Age appropriate yes Social history: Lives with biological mother. Anyone smoking in proximity to the patient? Yes Outdoor. Namita attends school. Family history: Hearing loss No. Surgical or anesthesia complications No Review of systems: Constitutional: child is weight appropriate Eyes: does not have double vision Ears, Nose, Mouth, Throat: frequent tonsillitis or strep throat; occasional URI's Cardiovascular: does not have heart disease Respiratory: does not have asthma or wheezing Gastointestinal: Negative Genitourinary: negative Integumentary: has had rash or eczema as above Neurological: has had no seizures; negative for ADD / ADHD Endocrine: does not have a history of thyroid problems Hematologic: does not bruise easily Environmental Allergies: no; Confirmatory testing? no Physical Exam: Height: 165.5 cm (5' 5.16 ) Weight: 87 kg (191 lb 12.8 oz) Body mass index is 31.76 kg/(m^2). Constitutional: no retractions or cyanosis Head and Face: no lesions or masses; facies symmetrical Eyes: sclera and conjunctiva clear Ears: Inspection: normal pinnae shape and position External canal: normal bilaterally Tympanic membrane: Right ear: intact with normal appearance Left ear: intact with normal appearance Nasal: deviated septum, mild Oral Cavity: moist mucous membranes; normal uvula, palate and tongue size Throat: tonsils 1+ without redness or pus Neck: supple without tenderness or crepitus; no palpable adenopathy Cranial Nerve Exam: grossly intact; CN VII symmetrical Respiration: unlabored breathing Head MRI: Well circumscribed lesion of the right nasopharynx c/w cyst or Rathje's pouch persistence Procedure: nasal endoscopy Indication: nasal obstruction Note: Verbal consent for the procedure was obtained.flexible scope passed through the nares after Afrin Findings: cyst like lesion of nasopharynx seen in midline with small adenoids ASSESSMENT: 1. Chronic adenotonsillitis 2. Cystic lesion of nasopharynx PLAN: 1. Schedule T&A MDB with removal/marsupilization of nasopharynx cyst 2. Will review MRI with Radiologist to ascertain no intracranial connection I reviewed the MRI with Dr. 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 I called Mom and left a message. Plan surgical removal next month. documented in this encounter Plan of Treatment Not on file documented as of this encounter Visit Diagnoses Diagnosis Cyst of nasopharynx Cyst of pharynx or nasopharynx documented in this encounter Administered Medications Inactive Administered Medications - up to 3 most recent administrations Medication Order MAR Action Action Date Dose Rate Site oxymetazoline (AFRIN) 0.05 % nasal spray 1 [place] 1 spray, Each Nostril, ONCE, 1 dose, On 09/11/16 at 1245, . WASTE DISPOSAL INSTRUCTIONS: Black Bin Disposal required. $ Given 09/11/2016 12:18 PM CDT 1 spray documented in this encounter Care Teams Computer Customer Support Specialist Relationship Specialty Start Date End Date Mathew Garcia MD [address] [place] [address] PCP - General Pediatrics 02/29/16 05/06/24 documented as of this encounter
--- OUTSIDE RECORDS SUMMARY | 2024-11-24 14:34 | XMS_ITS | Encounter Summary ---
Author Organization [facility] Address [address] [facility] [place] [address] Care Team Providers Care Radiotelegraph Operator Name Role Phone Mathew Garcia MD Primary Care Provider [phone] Encounter Details Date Type Department Care Team (Late st Contact Info) Description 08/09/2016 - 08/09/2016 3:47 PM CDT Emergency ER at [address] [address] Discharge Disposition: ED Dismiss - Never Arrived Social History Tobacco Use Types Packs/Day Years [...] on filedocumented in this encounter Care Teams Radiotelegraph Operator Relationship Specialty Start Date End Date Mathew Garcia MD [address] [place] [id number] PCP - General Pediatrics 02/29/16 05/06/24 documented as of this encounter
--- OUTSIDE RECORDS SUMMARY | 2024-11-24 14:34 | XMS_ITS | Encounter Summary ---
Author Organization [facility] Address [address] [place] [address] Care Team Providers Care Warm In Name Role Phone Mathew Garcia MD Primary Care Provider [phone] Reason for Visit * Auth/Cert Specialty Diagnoses / Procedures Referred By Mercedez perez Referred To Contact Diagnoses Acute adenotonsillitis Lesion of nasopharynx Acute adenotonsillitis Lesion of nasopharynx Procedures TONSILLECTOMY AND ADENOIDECTOMY Referral ID Status Reason Start Date Expiration Date Visits Re quested Visits Authorized [id number] 1 1 Encounter Details Date Type Department Care Team (Late st Contact Info) Description 10/06/2016 12:40 PM RAILROAD SIGNAL OPERATOR - 10/06/2016 2:40 PM [facility] Surgery [facility] - [address] [address] [place] [address] [place] [address] TONSILLECTOMY AND ADENOIDECTOMY, RIGHT REMOVAL OF MASS (NASOPHARYNX CYST) Surgery Details Date/Time Status Location OR Service Patient Class Case Class Case Type Trauma Case? 10/06/2016 12:40 PM Posted [facility] OR ENT Surgery Day Care Over Night Elective > 5 days Panel 1 Procedure LRB Anes Op Region Wound Class Comments TONSILLECTOMY AND ADENOIDECT STELLA, RIGHT REMOVAL OF MASS (NASOPHARYNX CYST) N/A General Throat Clean Contaminated Surgeon Surgeon Role Service Panel Freeman Domingo MD Primary ENT [address] card ok'd by Cierra/BENNY (09/22)MDB/FLOOR documented in this encounter Social History Tobacco [...] Comments Blood Pressure 124/74 10/06/2016 5:15 PM RAILROAD SIGNAL OPERATOR Pulse 59 10/06/2016 5:15 PM RAILROAD SIGNAL OPERATOR Temperature 36.2 ??C (97.2 ??F) 10/06/2016 3:12 PM CS T Respiratory Rate 14 10/06/2016 5:15 PM RAILROAD SIGNAL OPERATOR Oxygen Saturation 95% 10/06/2016 5:15 PM RAILROAD SIGNAL OPERATOR Inhaled Oxygen Concentration - - Weight 88.3 kg (194 lb 10.7 oz) 016 11:45 AM RAILROAD SIGNAL OPERATOR Height 168.2 cm (5' 6.22 ) 10/06/2016 1 1:45 AM RAILROAD SIGNAL OPERATOR Body Mass Index 31.21 10/06/2016 11:45 AM RAILROAD SIGNAL OPERATOR Body Mass Index Percentile 98.01% 10/06 11:45 AM RAILROAD SIGNAL OPERATOR Growth Chart: [facility] (Girls, 2- 20 Years) documented [...] SUMMARY Patient ID: Name: Namita Reyes MR#: [id number] Date of : 2005 Age: 11 y.o. [...] or for any of the following issues: [phone] and ask for ENT Follow up with provider Order Specific Question Answer Comments Follow Up Instructions: 3 months Freeman Domingo MD ROAD SIGNAL OPERATOR documented in this encounter Discharge Instructions * Discharge Instructions* Shimon Batista RN - 10/06/2016 3:44 PM RAILROAD SIGNAL OPERATOR Tonsillectomy and Adenoidectomy For Children 7 years [...] You may need to speak with the kjusmi-gh-bhym. ROAD SIGNAL OPERATOR documented in this encounter Medications at Time [...] informed decision to proceed. Freeman Domingo MD ROAD SIGNAL OPERATOR documented in this encounter OR Notes * Operative - Freeman Domingo MD - 10/06/2016 4:34 PM CST [address] [address] [phone] OPERATIVE REPORT NAME: NAMITA REYES : 2005 UNIT #: [id number] CSN #: [id number] DATE OF OPERATION: 10/06/2016 ATTENDING SURGEON: FREEMAN DOMINGO MD PROCEDURE: Tonsillectomy and adenoidectomy and removal of nasopharyngeal cystic lesion. SURGEON: Freeman Domingo MD GLOBAL CLIMATE CHANGE RESEARCHER: None. ANESTHESIA: General endotracheal. PREOPERATIVE DIAGNOSES: Chronic [...] adenoid curettes were used along with a Mckee Saunders forceps to remove the adenoid tissue [...] stable condition. Dictated By: FREEMAN DOMINGO MD BUTCH/Glenis JOB ID: [id number] OPERATIVE REPORT ROAD SIGNAL OPERATOR * Brief Op Note - Freeman Domingo MD - 10/06/2016 3:24 PM CST Brief Post-Operative Note 10/06/2016 Namita Martínez Amy Date of Surgery: 10/06/2016 Surgeon(s) and Role: * Freeman Domingo MD - Primary Anesthesiologist: Beck Balbuena MD Tree Feller: Radha Mace MD Pre-Op Diagnosis Codes: * [...] in log * Operative note dictated: yes ROAD SIGNAL OPERATOR documented in this encounter Plan of Treatment Not on file documented as of this encounter Procedures Procedure Name Priority Date/Time Associated Diagnosis Comments PATHOLOGY TISSUE EXAM (STL) STAT 10/06/2016 2:11 PM RAILROAD SIGNAL OPERATOR Acute adenotonsillitis Lesion of nasopharynx GROSS EXAM PATHOLOGY (STL) STAT 10/06/2016 1:56 PM RAILROAD SIGNAL OPERATOR Acute adenotonsillitis Lesion of nasopharynx TONSILLECTOMY AND ADENOIDECTOMY 10/06/2016 1:19 PM RAILROAD SIGNAL OPERATOR Acute adenotonsillitis Lesion of nasopharynx Special Needs PL card ok'd by Cierra/BENNY (09/22)B/FLOOR HCG URINE QUALITATIVE - POCT (IP) BEAKER Routine 10/06/2016 12:00 PM RAILROAD SIGNAL OPERATOR documented in this encounter Results * GROSS + MICRO EXAM (STL) (10/06/2016 2:11 PM RAILROAD SIGNAL OPERATOR) Case Report Surgical Pathology Report ? Case: [id number] ? Authorizing Provider: ??Freeman Domingo MD ?Collected: ? 10/06/2016 02:11 PM ? Ordering Location: ? [facility] ? Received: ?10/09/2016 07:43 AM ? Pathologist: ? Roula Garcia MD ? Specimen: ?Lesion, nasal pharyngeal lesion including adenoids ? 10/10/2016 12:15 PM [facility] Final Diagnosis NASOPHARYNX, MID, LESION WITH ADENOIDS, EXCISION: - NASOPHARYNGEAL TONSILLAR TISSUE WITH LYMPHOID HYPERPLASIA. - FINDINGS SUGGESTIVE OF INCLUSION CYST, SEE DESCRIPTION. 10/10/2016 12:15 PM [facility] Clinical History The patient is a 11-year-old girl who underwent excision of a nasopharyngeal lesion including the adenoid tonsils. Imaging (MRI) disclosed a cystic nasopharyngeal lesion oriented close to the midline but towards the right. 10/10/2016 12:15 PM [facility] Gross Description Submitted fixed in [...] A1 and A2. (CT/alj) 10/10/2016 12:15 PM [facility] Microscopic Description 2 H&E. Sections [...] atypia is identified. (/SES/scs). 10/10/2016 12:15 PM [facility] Disclaimer The performance characteristics of all immunohistochemical and indirect immunofluorescence stains (if any) cited in this report were determined by the Histopathology Laboratory of [facility]. Some of these tests were developed by [...] the attending (teaching) pathologist. 10/10/2016 12:15 PM [facility] Embedded Images 10/10/2016 12:15 PM [facility] Pathology/Cytolo gy LESION SPECIMEN / Unknown 10/06/2016 2:11 PM RAILROAD SIGNAL OPERATOR 10/09/2016 7:43 AM RAILROAD SIGNAL OPERATOR Freeman Domingo MD LAB - PATHOLOGY/CYTO LOGY ORDERABLES [facility] [address] [place] [address] * GROSS EXAM PATHOLOGY (STL) (10/06/2016 1:56 PM RAILROAD SIGNAL OPERATOR) Case Report Surgical Pathology Report ? Case: [id number] ? Authorizing Provider: ??Freeman Domingo MD ?Collected: ? 10/06/2016 01:56 PM ? Ordering Location: ? [facility] ? Received: ?10/06/2016 02:51 PM ? Pathologist: ? Roula Garcia MD ? Specimen: ?Tonsil(s), tonsils ? 10/09/2016 8:13 AM [facility] Final Diagnosis GROSS DIAGNOSIS: PALATINE TONSILS. 10/09/2016 8:13 AM [facility] Clinical History The patient is a 11-year-old girl with acute adenotonsiliti s. 10/09/2016 8:13 AM [facility] Gross Description Submitted fresh in [...] sections are taken. (CT/me) 10/09/2016 8:13 AM RAILROAD SIGNAL OPERATOR [facility] Embedded Images 10/09/2016 8:13 AM RAILROAD SIGNAL OPERATOR [facility] Pathology/Cytolo gy SPECIMEN FROM TONSIL / Unknown 10/06/2016 1:56 PM RAILROAD SIGNAL OPERATOR 10/06/2016 2:51 PM RAILROAD SIGNAL OPERATOR Freeman Domingo MD LAB - PATHOLOGY/CYTO LOGY ORDERABLES Performing Organization Address City/[facility]/ZIP Co de Phone Number [facility] [address] [place] [address] * HCG URINE QUALITATIVE - POCT (IP) CONOR (10/06/2016 12:00 PM RAILROAD SIGNAL OPERATOR) HCG Qual Urine Negative Negative [facility] POCT TEST[facility] QC Verified Yes Yes [facility] PO CT TESTING Urine URINE / Unknown 10/06/2016 1 2:00 PM RAILROAD SIGNAL OPERATOR Freeman Domingo MD LAB - POINT OF CARE ORDERABLES Performing Organization Address [facility] Co de Phone Number [facility] POCT TEST[facility] [address] [phone] documented in this encounter Visit Diagnoses Diagnosis Acute adenotonsillitis Acute tonsillitis Lesion of nasopharynx Unspecified disease of pharynx Recurrent acute tonsillitis Acute tonsillitis Acute adenotonsillitis Acute tonsillitis Lesion of nasopharynx Unspecified disease of pharynx documented in this encounter Administered Medications Inactive Administered Medications - up to 3 most recent administrations Medication Order MAR Action Action Date Dose Rate Site 0.9% nacl irrigation solution PRN, Starting on Sun10/06/16 at 1352, Until Sun10/06/16 at 1519, Intra-op $ Given 10/06/2016 1:52 PM RAILROAD SIGNAL OPERATOR 500 mL isolyte-S pH 7.4 infusion 100 mL/hr, Intravenous, POST-OP CONTINUOUS, Starting on Sun10/06/16 at 1515, Until Sun10/06/16 at 1904, PACU Current Rate 10/06/2016 3:12 PM RAILROAD SIGNAL OPERATOR 100 mL/hr 100 mL/hr morphine injection 2 mg 2 mg, Intravenous, POST-OP MULTIPLE, Starting on Sun10/06/16 at 1514, Until Sun10/06/16 at 1904, May repeat first dose every 5 minutes. Max dose 6 mg. DO NOT EXCEED MORPHINE 0.2 mg/kg/hr IV. High Risk, High Alert Medication: Must document double check on IV MAR Flowsheet, PACU $ Given 10/06/2016 4:17 PM RAILROAD SIGNAL OPERATOR 2 mg $ Given 10/06/2016 3:57 PM RAILROAD SIGNAL OPERATOR 2 mg $ Given 10/06/2016 3:27 PM RAILROAD SIGNAL OPERATOR 2 mg oxymetazoline (AFRIN) 0.05 % nasal spray PRN, Starting on Sun10/06/16 at 1406, Until Sun10/06/16 at 1519, Intra-op $ Given 10/06/2016 2:06 PM RAILROAD SIGNAL OPERATOR 2 spray s documented in this encounter Active and Recently Administered Medications Times are shown in RAILROAD SIGNAL OPERATOR. Scheduled Medication Order 10/04/2016 10/05/2016 10/06/2016 morphine [...] Batista RN)1557 ($ Given - Provider: Shimon Batista RN)1617 ($ Given - Provider: Shimon Batista RN) [...] PACU 1512 (Current Rate - Provider: Shimon Batista, RN)1722 (Stopped - Provider: Shimon Batista, RN) PRN Medication Order 10/04/2016 10/05/2016 10/06/2016 [...] throat) documented in this encounter Care Teams Warm In Relationship Specialty Start Date End Date Mathew Garcia MD [address] [place] [address] PCP - General Pediatrics 02/29/16 05/06/24 documented as of this encounter
== END 2024-11-17 08:11 | disposition home or self-care (01) ==
PROVIDERS: PCP Family Medicine; Visit Provider Nurse Practitioner Family
DX: R11.2 Nausea with vomiting, unspecified (principal)
CPT/HCPCS: 78264; A9541

== ENCOUNTER 2024-12-22 11:46 | Emergency (ER) | payer BC, SELFPAY ==
--- NOTE | 2024-12-22 11:56 | ED.URI ---
HPI - URI/Sore Throat General Chief Complaint: Upper Respiratory Infection Stated Complaint: Cough, Fever, Body aches Time Seen by Provider: 12/22/24 11:57 Source: patient, RN notes reviewed and old records reviewed Mode of arrival: ambulatory Limitations: no limitations History of Present Illness HPI Narrative: patient presents with complaints flu-like symptoms for 4 days. She reports she has been taking knpn-bbw-jdrhkop medication with poor relief. Says that she is feeling worse instead of better. She is not in any distress. She denies any injury or trauma. Voices no other concerns or complaints today Related Data Home Medications ?Medication ?Instructions ?Recorded ?Confirmed ?Last Taken ?Type drospirenone 3 mg-ethinyl 1 tablet PO DAILY 07/23/24 12/08/24 Unknown History estradiol 0.02 mg tablet (SAJI (28)) Allergies Allergy/AdvReac Type Severity Reaction Status Date / Time No Known Allergies Allergy Verified 12/22/24 12:20 Review of Systems Review of Systems: All systems reviewed & are unremarkable except as noted in HPI and below Constitutional: Constitutional: Reports no additional constitutional complaints, Reports body ache(s), Reports fever(s), Reports headache(s) and Reports lethargy ENT: Reports system reviewed and no additional complaints, except as documented, Reports nasal congestion, Reports nasal discharge and Reports sore throat Cardiovascular: Cardiovascular: Reports no additional cardiovascular complaints Respiratory: Respiratory: Reports no additional respiratory complaints and Reports cough Gastrointestinal: Gastrointestinal: Reports no additional gastrointestinal complaints [facility] Past Medical History Medical History (Updated 12/22/24 @ 12:47 by Dolores Webber APRN) Diarrhea Abdominal pain Heartburn Nausea & vomiting Migraine Headache Anxiety Depression Family History Family History Grandparent High cholesterol Hypertension Social History Social History Smoking status: Never smoker Second hand tobacco smoke exposure: No Alcohol intake: never Substance use: never Substance use type: does not use Do You Feel Safe in your Home?: Yes Lack of Transportation: No Lack of Food: Never True Current Housing: I Have Housing Concerned About Future Housing: No Difficulty Paying Gas/Electric Bills: No Difficulty Paying for Meds: No Currently Unemployed: No Living arrangements: with family Gender identity (if verbalized by the patient): Female Comments At the time of my signature, I reviewed and agree with the nursing past medical, surgical, social, and family history. There is no relevant family history pertinent to the patient complaint. Exam Const: General: cooperative, no acute distress, alert and awake Orientation/consciousness: oriented to person, oriented to place and oriented to time HENMT: Head: normal to inspection Ears: TM's normal bilaterally Mouth: Yes moist mucous membranes Throat: posterior oropharynx normal Resp: Effort & Inspection: normal respiratory effort and able to speak in complete sentences Auscultation: clear to auscultation bilaterally, no crackles, no rales, no rhonchi and no wheezes Cardio: Palpation: normal PMI Rate: regular rate Rhythm: regular rhythm Heart sounds: S1 normal heart sound present and S2 normal heart sound present Neuro: General: oriented to person, oriented to place and oriented to time Cranial nerves: Yes CN's II-XII intact bilaterally Psych: Appearance: grossly normal Thought process: Normal thought process present Insight: Good insight present (Psych) Judgement: Good judgement present (Psych) Course Course Level of Care: Express Care Visit Vital Signs Vital signs: Reviewed MDM - URI/Sore Throat MDM Narrative Medical decision making narrative: negative COVID, negative strep. Positive flu. Supportive care measures discussed. Reassuring physical exam. Discharge instructions reviewed with patient, as well as provided in writing per nursing staff. The instructions also include specific and strict return/GO TO THE ER as well as f/u information. All questions have been answered, and the patient deny any further questions with discharge and discharge plan. Some parts of this dictation were generated by voice recognition software and may contain typographical and/or grammatical inaccuracies. Differential Diagnosis Differential diagnosis: Likely upper respiratory infection, otitis media, sinusitis, viral infection, influenza and pharyngitis Medical Records Attestation: I reviewed the patient's medical records. Lab Data Attestation: I reviewed the patient's lab results. Discharge Plan Discharge Clinical Impression: Influenza Patient Disposition: Home, Self-Care Condition: Stable Instructions: Antibiotic Form, Influenza (ED) Additional Instructions: use jvhw-ggc-[id number] medications to manage your symptoms. Follow-up with primary care provider. Emergency department for new or worse symptoms Patient Language: Swazi Prescriptions: No Action duloxetine 20 mg capsule,delayed release(/EC) 20 mg PO BID Qty: 30 0RF sumatriptan succinate 25 mg tablet See Rx Instructions PO .COMPLEX Qty: 7 0RF Rx Instructions: take 1 tab at onset of headache; if no relief may repeat 1 tab after at least 2 hrs; max = 4 tabs/24 hr PO drospirenone-ethinyl estradiol [SAJI (28)] 3-0.02 mg tablet 1 tablet PO DAILY omeprazole 40 mg capsule,delayed release(DR/EC) 40 mg PO DAILY 30 Days Qty: 30 5RF famotidine [Pepcid] 20 mg tablet 20 mg PO BID 30 Days Qty: 60 5RF Follow-up/Referrals: Esperanza Chery MD [Primary Care Provider] - 2 Weeks Stand Alone Forms: Work/School Release IP Time of Disposition: 12:47
[2024-12-22 11:59] VITALS: BP 140/88; PULSE 113; RESP 18; TEMP 36.7; O2SAT 99
--- OUTSIDE RECORDS SUMMARY | 2024-12-22 12:40 | XMS_ITS | Referral Summary ---
Author Organization [facility] Address [address] [place] [address] Care Team Providers Care Store Stock Associate Name Role Phone Vianey Cabral MD Unavailable [phone] Source Comments [facility],non-owned Affiliates and Associated Physician Practices is amultiple site organization consisting of ambulatory clinics and hospital sitesin [place], [place], [place] and [place]. This disclosure is being madepursuant to the Care Everywhere program and may not contain all information available regarding this patient. Last updated 18.[facility] Allergies No known active allergies Medications * [...] month. Assessment & Plan (12/06/2020 4:27 PM HOSPITAL MANAGER): Chronic daily headaches have been less intense [...] of Treatment Not on file Care Teams Store Stock Associate Relationship Specialty Start Date End Date Vianey Cabral MD [address] [place] [address] Pediatric Gastroenterology 12/06/20
--- OUTSIDE RECORDS SUMMARY | 2024-12-22 12:40 | XMS_ITS | Clinical Summary ---
Author Organization [facility] Address [address] [place] [address] Care Team Providers Care Electrical Assemblies Supervisor Name Role Phone Vianey Cabral MD Unavailable [phone] Source Comments [facility],non-owned Affiliates and Associated Physician Practices is amultiple site organization consisting of ambulatory clinics and hospital sitesin [place], [place], [place] and [place]. This disclosure is being madepursuant to the Care Everywhere program and may not contain all information available regarding this patient. Last updated 18.[facility] Allergies No known active allergies [...] month. Assessment & Plan (12/06/2020 4:27 PM BOARD HAMMER OPERATOR): Chronic daily headaches have been less intense [...] - 3-dose series) 2018 CHLAMYDIA/GONORRHEA SCREENING 2019 MENINGOCOCCAL (Group B) VACC INE (1 of 2 - Standard) 2019 HEPATITIS C SCREENING 07/01/2021 DTAP/TDAP/TD VACCINES (1 - Tdap) 2022 HEPATITIS B VACCINE (1 of 3 - 19+ 3-dose series) 2022 COVID-19 VACCINE (1 - 2023-2 5 season) 2024 INFLUENZA VACCINE (#1) 2024 DEPRESSION SCREENING 11/26/2024 ZOSTER VACCINE (1 of 2) 2053 HIB VACCINE Aged Out No longer eligi ble based on patient's age to complete this topic MENINGOCOCCAL VACCINE Aged Out No sorin mariela eligible based on patient's age to complete this topic PNEUMOCOCCAL VACCINE Aged Out No long er eligible based on patient's age to complete this topic Care Teams Electrical Assemblies Supervisor Relationship Specialty Start Date End Date Vianey Cabral MD [address] [place] [address] Pediatric Gastroenterology 12/06/20
--- OUTSIDE RECORDS SUMMARY | 2024-12-22 12:41 | XMS_ITS | Patient Health Summary ---
Author Organization [facility] Address [address] [place] [address] Care Team Providers Care Low Pressure Boiler Tender Name Role Phone Vianey Cabral MD Unavailable Note from [facility],non-owned Affiliates and Associated Physician Practices is amultiple site organization consisting of ambulatory clinics and hospital sitesin [place], [place], [place] and [place]. This disclosure is being madepursuant to the Care Everywhere program and may not contain all information available regarding this patient. Last updated 18.[facility] Allergies No known active allergies [...] for Abdominal pain, unspecified abdominal location * MD EGD FLEX TRANSORAL W BX SNGL OR [...] Attending MD: Vianey Cabral , ?Order #: [id number] _ Procedure: ? Upper GI endoscopy Indications: [...] Procedure Code(s): ? --- Professional --- ? 95229, Esophagogastrodu odenoscopy, flexible, transoral; with biopsy, ? single or multiple ? --- Technical --- ? 76737, Esophagogastrodu odenoscopy, flexible, transoral; with biopsy, ? single or multiple Diagnosis Code(s): ? --- Professional --- ? K31.89, Other diseases of stomach and duodenum ? R10.84, Generalized abdominal pain ? --- Technical --- ? K31.89, Other diseases of stomach and duodenum ? R10.84, Generalized abdominal pain CPT copyright 2019 [employer]. All rights reserved. The codes documented in this report are preliminary and upon bilingual medical assistant review may be revised to meet current compliance requirements. Dr. Vianey Cabral Vianey Cabral, 04/22/2021 8:43:25 AM This report has been signed electronically. Number of Addenda: 0 Note Initiated On: 04/21/2021 11:08 AM Procedure Date: ? 04/22/2021 11:08:00 AM ? This report has been signed electronically. [facility] 04/22/2021 11:0 8 AM CDT Vianey Cabral MD GI PROCEDURE ORDERAB LES Performing Organization Address City/State/[facility] Co de Phone Number [facility] [address] [place] [address] * HELICOBACTER PYLORI UREASE (STL) (04/22/2021 8:36 AM CDT) Helicobacter pylori Urease Initial Negative Negative 04/23/2021 11:15 AM CDT [facility] Helicobacter pylori Urease Final Negative Negative 04/23/2021 11:15 AM CDT [facility] Microbiology GASTRIC BIOPSY SPECIMEN / Unknown Collection / Unknown 04/22/2021 8:36 AM CDT 04/22/2021 8:53 AM CDT Vianey Cabral MD LAB - MICROBIOLOGY O RDERABLES Performing Organization Address [facility]/State/ZIP Co de Phone Number [address] [address], [facility] [phone] * PATHOLOGY TISSUE EXAM (STL) (04/22/2021 8:34 AM CDT) Only the most recent of2 resultswithin the time period is included. Case Report Surgical Pathology Report ? Case: [id number] ? Authorizing Provider: ??Vianey Cabral MD ?Collected: ? 04/22/2021 08:34 AM ? Ordering Location: ? [facility] ?Received: ?04/22/2021 09:44 AM ? Pathologist: ? Bisi Dila MD ? Specimens: ?? A) - Duodenal Biopsy ? B) - Stomach Biopsy ? C) - Esophageal Biopsy, distal ? D) - Esophageal Biopsy, mid ? 04/26/2021 3:59 PM [facility] Final Diagnosis Small intestine, duodenum, biopsy [...] increase in intraepithelial eosinophils 04/26/2021 3:59 PM [facility] Clinical History The patient is a 15-year-old girl with abdominal pain who underwent upper endoscopy. The endoscopic finding was patchy gastric erythema. 04/26/2021 3:59 PM [facility] Gross Description The specimens are received [...] as D1. (CT/tc) 04/26/2021 3:59 PM T [facility] Microscopic Description 12 H&E slides examined. Microscopic examination substantiates the final diagnosis. 04/26/2021 3:59 PM CDT [facility] Disclaimer The performance characteristics of all immunohistochemical and indirect immunofluorescence stains (if any) cited in this report were determined by the [facility] Laboratory of [facility] in compliance with Clinical Laboratory Improvement Amendments of 1988 (CLIA'88) regulations. Some of these tests rely on the use of analyte-specific reagents and are subject to specific labeling requirements by the U.S. Food and Drug Administration (FDA). Such tests were developed by the [facility] of [facility] and have not been cleared or approved by the FDA. The FDA has determined that such clearance or approval is not necessary. These tests are used for clinical purposes and should not be regarded as investigational or for research. This case has been personally reviewed and interpreted by the attending (teaching) pathologist. The interpretation of this case is performed by [facility] Pathology at [facility], [address] [place] [address]. 04/26/2021 3:59 PM CDT [facility] Embedded Images 04/26/2021 3:59 PM T [facility] Pathology/Cytology ESOPHAGEAL BIOPSY SPECIMEN / Unknown [...] Cabral MD LAB - PATHOLOGY/CYTO LOGY ORDERABLES [facility] [place] [address] * HCG URINE QUALITATIVE - POCT (IP) INTERFACED (04/22/2021 7:59 AM CDT) HCG Qual Urine Negative Negative 04/22/2021 8:09 AM CDT [facility] Urine URINE / Unknown 04/22/2021 7 :59 AM CDT 04/22/2021 8:09 AM CDT Vianey Cabral MD LAB - POINT OF CARE ORDERABLES Performing Organization Address City/[facility]/ZIP Co de Phone Number [facility] [address] [place] [address] * HCG URINE QUAL POCT NOTIFICATION (04/21/2021 6:00 PM CDT) Only the most recent of2 resultswithin the time period is included. Pathologist [facility] Comment Notification Label Only - See Separate Report 04/22/2021 8:30 AM CDT [facility] Urine URINE / Unknown 04/21/2021 6 :00 PM CDT 04/22/2021 7:19 AM CDT Vianey Cabral MD LAB - URINALYSIS ORD ERABLES Performing Organization Address [facility] de Phone Number [facility] [address] [place] [address] * SARS-COV-2 (COVID-19) IN HOUSE (04/20/2021 2:18 PM CDT) Pathologist [facility] COVID-19 PCR Not detected Not detected 04/20/2021 11:53 PM CDT [facility] MICROBIOLOGY Microbiology SPECIMEN FROM NASOPHARYNGEAL STRUCTURE / Unknown Collection / Unknown 04/20/2021 2:18 PM CDT 04/20/2021 2:18 PM CDT Narrative [facility]CRO[facility] - 04/20/2021 11:53 PM CDT This nucleic acid amplification assay performance was validated by [facility] Laboratory. This test has been [...] Cabral MD LAB - MICROBIOLOGY O RDERABLES [facility] MICROBIOLOG[facility] [address] [place] [address], [facility] [phone] * CT HEAD WO CONTRAST (10/01/2019 8:30 PM REVENUE COLLECTOR) Anatomical Region Laterality Modality Head Computed Tomogra phy 10/02/2019 7:23 AM REVENUE COLLECTOR Impressions 10/02/2019 7:25 AM REVENUE COLLECTOR No acute intracranial CT abnormality. Reading Radiologist: Rony Zamora MD on 10/02/2019 at 7:25 AM Narrative 10/02/2019 7:25 AM REVENUE COLLECTOR EXAMINATION: Computed tomography (CT) of the head [...] * CARDIAC EKG ORDER (02/01/2018 1:43 AM REVENUE COLLECTOR) Only the most recent of2 resultswithin the time period is included. Narrative 02/01/2018 1:43 AM REVENUE COLLECTOR Ordered by an unspecified provider. Scanned Document CARDIAC SERVICES ORD ERABLES * GROSS EXAM PATHOLOGY (STL) (10/06/2016 1:56 PM REVENUE COLLECTOR) Case Report Surgical Pathology Report ? Case: [id number] ? Authorizing Provider: ??Orion Domingo MD ?Collected: ? 10/06/2016 01:56 PM ? Ordering Location: ? [facility] ? Received: ?10/06/2016 02:51 PM ? Pathologist: ? Roula Garcia MD ? Specimen: ?Tonsil(s), tonsils ? 10/09/2016 8:13 AM [facility] Final Diagnosis GROSS DIAGNOSIS: PALATINE TONSILS. 10/09/2016 8:13 AM [facility] Clinical History The patient is a 11-year-old girl with acute adenotonsiliti s. 10/09/2016 8:13 AM [facility] Gross Description Submitted fresh in [...] sections are taken. (CT/me) 10/09/2016 8:13 AM [facility] Embedded Images 10/09/2016 8:13 AM [facility] Pathology/Cytolo gy SPECIMEN FROM TONSIL / Unknown 10/06/2016 1:56 PM REVENUE COLLECTOR 10/06/2016 2:51 PM REVENUE COLLECTOR Orion Domingo MD LAB - PATHOLOGY/CYTO LOGY ORDERABLES [facility] [address] [place] [address] * HCG URINE QUALITATIVE - POCT (IP) CONOR (10/06/2016 12:00 PM REVENUE COLLECTOR) HCG Qual Urine Negative Negative [facility] POCT TESTING QC Verified Yes Yes [facility] PO CT TESTING Urine URINE / Unknown 10/06/2016 1 2:00 PM REVENUE COLLECTOR Orion Domingo MD LAB - POINT OF CARE ORDERABLES Performing Organization Address [facility] Co de Phone Number [facility] POCT TESTING [address] [place], [place] [id number] [place] [address] * MRI BRAIN NON CONTRAST (08/17/2016 3:04 [...] Angie Casas MD MR ORDERABLES Care Teams Low Pressure Boiler Tender Relationship Specialty Start Date End Date Vianey Cabral MD [address] [place] [address] Pediatric Gastroenterology 12/06/20
--- OUTSIDE RECORDS SUMMARY | 2024-12-22 12:41 | XMS_ITS | Encounter Summary ---
Author Organization [facility] Address [address] [place] [address] Care Team Providers Care Performance Engineer Name Role Phone Mathew Garcia MD Primary Care Provider Vianey Cabral MD Unavailable [phone] Reason for Visit * Reason Onset Date Comments Results 05/02/2021 Encounter Details Date Type Department Care Team (Late st Contact Info) Description 05/02/2021 Telephone [facility] Pediatrics - [facility] [place] [address] Vianey Cabral MD [address] [place] [address] Results Social History Tobacco Use Types Packs/Day [...] on filedocumented in this encounter Care Teams Performance Engineer Relationship Specialty Start Date End Date Mathew Garcia MD [address] [place] [address] [place] [phone] PCP - General Pediatrics 02/29/16 05/06/24 Vianey Cabral MD [address] [place] [address] Pediatric Gastroenterology 12/06/20 documented as of this encounter
--- OUTSIDE RECORDS SUMMARY | 2024-12-22 12:41 | XMS_ITS | Clinical Summary ---
Author Organization [facility] Address [address] [place] [address]. [place], [place] [address] [place] [address] Care Team Providers Care Copy Holder Name Role Phone Unavailable Primary Care Provider [...] HPV Vaccines (1 - 3-dose series) 2018 Meningococcal B Vaccine (1 o f 2 - Standard) 2019 Hepatitis C 2021 DTaP, Tdap and Td [...]
[2024-12-22 12:59] LABS: EDCOVIDSCREEN Negative (Negative); EDINFLUASCREEN Positive (Negative); EDINFLUBSCREEN Negative (Negative); EDSTREPNEGPOS1 Negative (Negative)
== END 2024-12-22 12:58 | disposition home or self-care (01) ==
PROVIDERS: Emergency Provider Nurse Practitioner Family; PCP Family Medicine
DX: J10.1 Influenza due to other identified influenza virus with other respiratory manifestations (principal); Z20.822 Contact with and (suspected) exposure to COVID-19; R12 Heartburn
CPT/HCPCS: 87081; 87426; 87804; 87880; 99213; G0463

== ENCOUNTER 2024-12-23 15:55 | Outpatient (CLI) | payer BC, SELFPAY ==
--- OUTSIDE RECORDS SUMMARY | 2024-12-23 16:00 | XMS_ITS | Clinical Summary ---
Author Organization [facility] Address [address] [place] [address] Care Team Providers Care Mine Engineer Name Role Phone Vianey Cabral MD Unavailable [phone] Source Comments [facility],non-owned Affiliates and Associated Physician Practices is amultiple site organization consisting of ambulatory clinics and hospital sitesin [place], [place] and [place]. This disclosure is being madepursuant to the Care Everywhere program and may not contain all information available regarding this patient. Last updated 18.[facility] Allergies No known active allergies Medications * [...] month. Assessment & Plan (12/06/2020 4:27 PM PRINT SUPPORT SPECIALIST): Chronic daily headaches have been [...] age to complete this topic Care Teams Mine Engineer Relationship Specialty Start Date End Date Vianey Cabral MD [address] [place] [address] Pediatric Gastroenterology 12/06/20
--- OUTSIDE RECORDS SUMMARY | 2024-12-23 16:00 | XMS_ITS | Encounter Summary ---
Author Organization [facility] Address [address] [facility] [place] [address] Care Team Providers Care Spares Scheduler Name Role Phone Mathew Garcia MD Primary Care Provider [phone] Vianey Cabral MD Unavailable [phone] Reason for Visit * Reason Onset Date Comments Results 05/02/2021 Encounter Details Date Type Department Care Team (Late st Contact Info) Description 05/02/2021 Telephone [facility] - [facility] [place] [address] Vianey Cabral MD [address] [place] [address] Results Social History Tobacco Use Types Packs/Day [...] on filedocumented in this encounter Care Teams Spares Scheduler Relationship Specialty Start Date End Date Mathew Garcia MD [address] [place] [address] [place] [phone] PCP - General Pediatrics 02/29/16 05/06/24 Vianey Cabral MD [address] [place] [address] Pediatric Gastroenterology 12/06/20 documented as of this encounter
--- OUTSIDE RECORDS SUMMARY | 2024-12-23 16:00 | XMS_ITS | Referral Summary ---
Author Organization [facility] Address [address] [place] [address] Care Team Providers Care Frame Maker Name Role Phone Vianey Cabral MD Unavailable [phone] Source Comments [facility],non-owned Affiliates and Associated Physician Practices is amultiple site organization consisting of ambulatory clinics and hospital sitesin [place], [place], [place] and [place]. This disclosure is being madepursuant to the Care Everywhere program and may not contain all information available regarding this patient. Last updated 18.[facility] Allergies No known active allergies Medications [...] month. Assessment & Plan (12/06/2020 4:27 PM GOLF COURSE PATROLLER): Chronic daily headaches have been less intense [...] of Treatment Not on file Care Teams Frame Maker Relationship Specialty Start Date End Date Vianey Cabral MD [address] [place] [address] Pediatric Gastroenterology 12/06/20
--- OUTSIDE RECORDS SUMMARY | 2024-12-23 16:00 | XMS_ITS | Patient Health Summary ---
Author Organization [facility] Address [address] [facility] [place] [address] Care Team Providers Care Lap Polisher Name Role Phone Vianey Cabral MD Unavailable [phone] Note from [facility],non-owned Affiliates and Associated Physician Practices is amultiple site organization consisting of ambulatory clinics and hospital sitesin [place], [place], [place] and [place]. This disclosure is being madepursuant to the Care Everywhere program and may not contain all information available regarding this patient. Last updated 18.[facility] Allergies No known active allergies Medications * [...] for Abdominal pain, unspecified abdominal location * IN EGD FLEX TRANSORAL W BX SNGL OR [...] Attending MD: Vianey Cabral , ?Order #: [id number] _ Procedure: ? Upper GI endoscopy Indications: [...] Procedure Code(s): ? --- Professional --- ? 28152, Esophagogastrodu odenoscopy, flexible, transoral; with biopsy, ? single or multiple ? --- Technical --- ? 66220, Esophagogastrodu odenoscopy, flexible, transoral; with biopsy, ? single or multiple Diagnosis Code(s): ? --- Professional --- ? K31.89, Other diseases of stomach and duodenum ? R10.84, Generalized abdominal pain ? --- Technical --- ? K31.89, Other diseases of stomach and duodenum ? R10.84, Generalized abdominal pain CPT copyright 2019 [employer]. All rights reserved. The codes documented in this report are preliminary and upon boiler helper review may be revised to meet current compliance requirements. Dr. Vianey Cabral Vianey Cabral, 04/22/2021 8:43:25 AM This report has been signed electronically. Number of Addenda: 0 Note Initiated On: 04/21/2021 11:08 AM Procedure Date: ? 04/22/2021 11:08:00 AM ? This report has been signed electronically. [facility] 04/22/2021 11:0 8 AM CDT Vianey Cabral MD GI PROCEDURE ORDERAB LES Performing Organization Address City/State/[facility] Co de Phone Number [facility] [address] [place] [address] * HELICOBACTER PYLORI UREASE (STL) (04/22/2021 8:36 AM CDT) Helicobacter pylori Urease Initial Negative Negative 04/23/2021 11:15 AM CDT [facility] Helicobacter pylori Urease Final Negative Negative 04/23/2021 11:15 AM CDT [facility] Microbiology GASTRIC BIOPSY SPECIMEN / Unknown Collection / Unknown 04/22/2021 8:36 AM CDT 04/22/2021 8:53 AM CDT Vianey Cabral MD LAB - MICROBIOLOGY O RDERABLES Performing Organization Address [facility]/State/ZIP Co de Phone Number [address] [address], [facility] [phone] * PATHOLOGY TISSUE EXAM (STL) (04/22/2021 8:34 AM CDT) Only the most recent of2 resultswithin the time period is included. Case Report Surgical Pathology Report ? Case: [id number] ? Authorizing Provider: ??Vianey Cabral MD ?Collected: ? 04/22/2021 08:34 AM ? Ordering Location: ? [facility] ?Received: ?04/22/2021 09:44 AM ? Pathologist: ? Bisi Dial MD ? Specimens: ?? A) - Duodenal Biopsy ? B) - Stomach Biopsy ? C) - Esophageal Biopsy, distal ? D) - Esophageal Biopsy, mid ? 04/26/2021 3:59 PM [facility] Final Diagnosis Small intestine, duodenum, biopsy [...] increase in intraepithelial eosinophils 04/26/2021 3:59 PM [facility] Clinical History The patient is a 15-year-old girl with abdominal pain who underwent upper endoscopy. The endoscopic finding was patchy gastric erythema. 04/26/2021 3:59 PM [facility] Gross Description The specimens are received [...] as D1. (CT/tc) 04/26/2021 3:59 PM T [facility] Microscopic Description 12 H&E slides examined. Microscopic examination substantiates the final diagnosis. 04/26/2021 3:59 PM CDT [facility] Disclaimer The performance characteristics of all immunohistochemical and indirect immunofluorescence stains (if any) cited in this report were determined by the Histopathology Laboratory of [facility] in compliance with Clinical Laboratory Improvement Amendments of 1988 (CLIA'88) regulations. Some of these tests rely on the use of analyte-specific reagents and are subject to specific labeling requirements by the U.S. Food and Drug Administration (FDA). Such tests were developed by the [facility] of [facility] and have not been cleared or approved by the FDA. The FDA has determined that such clearance or approval is not necessary. These tests are used for clinical purposes and should not be regarded as investigational or for research. This case has been personally reviewed and interpreted by the attending (teaching) pathologist. The interpretation of this case is performed by [facility] at [facility], [address] [place] [id number]. 04/26/2021 3:59 PM CDT [facility] Embedded Images 04/26/2021 3:59 PM T [facility] Pathology/Cytology ESOPHAGEAL BIOPSY SPECIMEN / Unknown [...] Cabral MD LAB - PATHOLOGY/CYTO LOGY ORDERABLES [facility] [place] [address] * HCG URINE QUALITATIVE - POCT (IP) INTERFACED (04/22/2021 7:59 AM CDT) HCG Qual Urine Negative Negative 04/22/2021 8:09 AM CDT [facility] Urine URINE / Unknown 04/22/2021 7 :59 AM CDT 04/22/2021 8:09 AM CDT Vianey Cabral MD LAB - POINT OF CARE ORDERABLES Performing Organization Address City/[facility]/ZIP Co de Phone Number [facility] [address] [place] [address] * HCG URINE QUAL POCT NOTIFICATION (04/21/2021 6:00 PM CDT) Only the most recent of2 resultswithin the time period is included. Pathologist [facility] Comment Notification Label Only - See Separate Report 04/22/2021 8:30 AM CDT [facility] Urine URINE / Unknown 04/21/2021 6 :00 PM CDT 04/22/2021 7:19 AM CDT Vianey Cabral MD LAB - URINALYSIS ORD ERABLES Performing Organization Address [facility] de Phone Number [facility] [address] [place] [address] * SARS-COV-2 (COVID-19) IN HOUSE (04/20/2021 2:18 PM CDT) Pathologist [facility] COVID-19 PCR Not detected Not detected 04/20/2021 11:53 PM CDT [facility] Microbiology SPECIMEN FROM NASOPHARYNGEAL STRUCTURE / Unknown Collection / Unknown 04/20/2021 2:18 PM CDT 04/20/2021 2:18 PM CDT Narrative [facility] - 04/20/2021 11:53 PM CDT This nucleic acid amplification assay performance was validated by [facility]. This test has been [...] Cabral MD LAB - MICROBIOLOGY O RDERABLES [facility] [address] [place] [address], [facility] [phone] * CT HEAD WO CONTRAST (10/01/2019 8:30 PM RADIO INTERFERENCE EXPERT) Anatomical Region Laterality Modality Head Computed Tomogra phy 10/02/2019 7:23 AM RADIO INTERFERENCE EXPERT Impressions 10/02/2019 7:25 AM RADIO INTERFERENCE EXPERT No acute intracranial CT abnormality. Reading Radiologist: Rony Zamora MD on 10/02/2019 at 7:25 AM Narrative 10/02/2019 7:25 AM RADIO INTERFERENCE EXPERT EXAMINATION: Computed tomography (CT) of the head [...] * CARDIAC EKG ORDER (02/01/2018 1:43 AM RADIO INTERFERENCE EXPERT) Only the most recent of2 resultswithin the time period is included. Narrative 02/01/2018 1:43 AM RADIO INTERFERENCE EXPERT Ordered by an unspecified provider. Scanned Document CARDIAC SERVICES ORD ERABLES * GROSS EXAM PATHOLOGY (STL) (10/06/2016 1:56 PM RADIO INTERFERENCE EXPERT) Case Report Surgical Pathology Report ? Case: [id number] ? Authorizing Provider: ??Orion Domingo MD ?Collected: ? 10/06/2016 01:56 PM ? Ordering Location: ? [facility] ? Received: ?10/06/2016 02:51 PM ? Pathologist: ? Roula Garcia MD ? Specimen: ?Tonsil(s), tonsils ? 10/09/2016 8:13 AM [facility] Final Diagnosis GROSS DIAGNOSIS: PALATINE TONSILS. 10/09/2016 8:13 AM [facility] Clinical History The patient is a 11-year-old girl with acute adenotonsiliti s. 10/09/2016 8:13 AM [facility] Gross Description Submitted fresh in one [...] sections are taken. (CT/me) 10/09/2016 8:13 AM [facility] Embedded Images 10/09/2016 8:13 AM [facility] Pathology/Cytolo gy SPECIMEN FROM TONSIL / Unknown 10/06/2016 1:56 PM RADIO INTERFERENCE EXPERT 10/06/2016 2:51 PM RADIO INTERFERENCE EXPERT Orion Domingo MD LAB - PATHOLOGY/CYTO LOGY ORDERABLES [facility] [address] [place] [address] * HCG URINE QUALITATIVE - POCT (IP) CONOR (10/06/2016 12:00 PM RADIO INTERFERENCE EXPERT) HCG Qual Urine Negative Negative [facility] QC Verified Yes Yes [facility] PO CT TESTING Urine URINE / Unknown 10/06/2016 1 2:00 PM RADIO INTERFERENCE EXPERT Orion Domingo MD LAB - POINT OF CARE ORDERABLES Performing Organization Address [facility] Co de Phone Number [facility] PO[facility] [address] [place], [place] [id number] [place] [address] * MRI BRAIN NON CONTRAST (08/17/2016 3:04 [...] Angie Casas MD MR ORDERABLES Care Teams Lap Polisher Relationship Specialty Start Date End Date Vianey Cabral MD [address] [place] [address] Pediatric Gastroenterology 12/06/20
--- OUTSIDE RECORDS SUMMARY | 2024-12-23 16:00 | XMS_ITS | Clinical Summary ---
Author Organization [facility] Address [address] [place] [address]. [place], [place] [address] [place] [address] Care Team Providers Care Cyber Engineer Name Role Phone Unavailable Primary Care Provider [...]
== END 2024-12-23 15:56 | disposition home or self-care (01) ==
LOC: ANHLAB 15:56
PROVIDERS: PCP Family Medicine; Visit Provider Nurse Practitioner Family
DX: R19.7 Diarrhea, unspecified (principal)
CPT/HCPCS: 83993

== ENCOUNTER 2025-01-21 09:26 | Outpatient (CLI) | payer BC, SELFPAY ==
--- NOTE | ~2025-01-21 | US_ITS ---
EXAM: ABDOMEN ULTRASOUND HISTORY: R11.2 - Nausea with vomiting, unspecified COMPARISON: None FINDINGS: LIVER: The liver is increased in echogenicity and size, measuring 20 cm in longitudinal dimension. The main portal vein is patent demonstrating hepatopedal flow The contour of the liver surface is smooth. GALLBLADDER: No stones are identified within the gallbladder, which is otherwise unremarkable. No gallbladder wall thickening or pericholecystic fluid. BILE DUCTS: Common bile duct measures 3.5 -4.9 mm. PANCREAS: Limited evaluation of the pancreas secondary to overlying bowel gas IMPRESSION: Fatty infiltration of an enlarged liver. Reviewed, dictated and finalized at location A. EN BUILDER UP
--- OUTSIDE RECORDS SUMMARY | 2025-01-21 10:22 | XMS_ITS | Patient Health Summary ---
Author Organization [facility] Address [address] [facility] [place] [address] Care Team Providers Care Building Maintenance Supervisor Name Role Phone Vianey Cabral MD Unavailable [phone] Note from [facility],non-owned Affiliates and Associated Physician Practices is amultiple site organization consisting of ambulatory clinics and hospital sitesin [place], [place], [place] and [place]. This disclosure is being madepursuant to the Care Everywhere program and may not contain all information available regarding this patient. Last updated 18.[facility] Allergies No known active allergies Medications [...] 93 04/22/2021 9:05 AM CDT Temperature 36.7 C (98.1 F) 04/22/2021 8:41 AM CDT Respiratory Rate 14 04/22/2021 9:05 AM CDT [...] for Abdominal pain, unspecified abdominal location * MI EGD FLEX TRANSORAL W BX SNGL OR [...] Endoscopy POC _ Patient Name: Namita Reyes Procedure Date: 04/22/2021 11:08 AM Date of : 2005 Admit Type: Outpatient Age: 15 Gender: Female Race: White Attending MD: Vianey Cabral , Order #: [id number] _ Procedure: Upper GI endoscopy Indications: Generalized abdominal pain Providers: Vianey Cabral Referring MD: Mathew Garcia MD Medicines: General Anesthesia Complications: No immediate complications. _ Procedure: After obtaining informed consent, the endoscope was passed under direct vision. Throughout the procedure, the patient's blood pressure, pulse, and oxygen saturations were monitored continuously. The Endoscope was introduced through the mouth, and advanced to the second part of duodenum. The upper GI endoscopy was accomplished without difficulty. The patient tolerated the procedure well. Findings: The examined esophagus was normal. Biopsies were taken with a cold forceps for histology. Estimated blood loss was minimal. Patchy mildly erythematous mucosa without bleeding was found in the gastric body and in the gastric antrum. Biopsies were taken with a cold forceps for Helicobacter pylori testing using a rapid urease test. Biopsies were taken with a cold forceps for histology. Estimated blood loss was minimal. No gross lesions were noted in the entire examined duodenum. Biopsies were taken with a cold forceps for histology. Estimated blood loss was minimal. Impression: - Normal esophagus. Biopsied. - Miild Erythematous mucosa in the gastric body and antrum. Biopsied. - No gross lesions in the entire examined duodenum. Biopsied. Recommendation: - Discharge patient to home (with parent). - Await pathology results. Procedure Code(s): --- Professional --- 41752, Esophagogastrodu odenoscopy, flexible, transoral; with biopsy, single or multiple --- Technical --- 26669, Esophagogastrodu odenoscopy, flexible, transoral; with biopsy, single or multiple Diagnosis Code(s): --- Professional --- K31.89, Other diseases of stomach and duodenum R10.84, Generalized abdominal pain --- Technical --- K31.89, Other diseases of stomach and duodenum R10.84, Generalized abdominal pain CPT copyright 2019 [employer]. All rights reserved. The codes documented in this report are preliminary and upon immigration associate review may be revised to meet current compliance requirements. Dr. Vianey Cabral Vianey Cabral, 04/22/2021 8:43:25 AM This report has been signed electronically. Number of Addenda: 0 Note Initiated On: 04/21/2021 11:08 AM Procedure Date: 04/22/2021 11:08:00 AM This report has been signed electronically. [facility] 04/22/2021 11:0 8 AM CDT Vianey Cabral MD GI PROCEDURE ORDERAB LES Performing Organization Address City/[facility]/ZIP Co de Phone Number [facility] [address] [place] [address] * HELICOBACTER PYLORI UREASE (STL) (04/22/2021 8:36 AM CDT) Helicobacter pylori Urease Initial Negative Negative 04/23/2021 11:15 AM CDT [facility] Helicobacter pylori Urease Final Negative Negative 04/23/2021 11:15 AM CDT [facility] Microbiology GASTRIC BIOPSY SPECIMEN / Unknown Collection / Unknown 04/22/2021 8:36 AM CDT 04/22/2021 8:53 AM CDT Vianey Cabral MD LAB - MICROBIOLOGY O RDERABLES Performing Organization Address [facility]/ZIP Co de Phone Number [facility] [address] [place] [address], [facility] [phone] * PATHOLOGY TISSUE EXAM (STL) (04/22/2021 8:34 AM CDT) Only the most recent of2 resultswithin the time period is included. Case Report Surgical Pathology Report Case: [id number] Authorizing Provider: Vianey Cabral MD Collected: 04/22/2021 08:34 AM Ordering Location: ENDOSCOPY SERVICES Received: 04/22/2021 09:44 AM Pathologist: Bisi Dial MD Specimens: A) - Duodenal Biopsy B) - Stomach Biopsy C) - Esophageal Biopsy, distal D) - Esophageal Biopsy, mid 04/26/2021 3:59 PM [facility] Final Diagnosis Small intestine, duodenum, biopsy [...] increase in intraepithelial eosinophils 04/26/2021 3:59 PM [facility] Clinical History The patient is a 15-year-old girl with abdominal pain who underwent upper endoscopy. The endoscopic finding was patchy gastric erythema. 04/26/2021 3:59 PM [facility] Gross Description The specimens are received [...] toto as D1. (CT/tc) 04/26/2021 3:59 PM [facility] Microscopic Description 12 H&E slides examined. Microscopic examination substantiates the final diagnosis. 04/26/2021 3:59 PM [facility] Disclaimer The performance characteristics of all immunohistochemical and indirect immunofluorescence stains (if any) cited in this report were determined by the [facility]opathology Laboratory of [facility] in compliance with Clinical Laboratory Improvement Amendments of 1988 (CLIA'88) regulations. Some of these tests rely on the use of analyte-specific reagents and are subject to specific labeling requirements by the U.S. Food and Drug Administration (FDA). Such tests were developed by the [facility] of [facility] and have not been cleared or approved by the FDA. The FDA has determined that such clearance or approval is not necessary. These tests are used for clinical purposes and should not be regarded as investigational or for research. This case has been personally reviewed and interpreted by the attending (teaching) pathologist. The interpretation of this case is performed by [facility] Pathology at [facility], [address] [place] [id number]. 04/26/2021 3:59 PM CDT [facility] Embedded Images 04/26/2021 3:59 PM CDT [facility] Pathology/Cytology ESOPHAGEAL BIOPSY SPECIMEN / Unknown [...] Cabral MD LAB - PATHOLOGY/CYTO LOGY ORDERABLES [facility] [address] [place] [address] * HCG URINE QUALITATIVE - POCT (IP) INTERFACED (04/22/2021 7:59 AM CDT) HCG Qual Urine Negative Negative 04/22/2021 8:09 AM CDT [facility] Urine URINE / Unknown 04/22/2021 7 :59 AM CDT 04/22/2021 8:09 AM CDT Vianey Cabral MD LAB - POINT OF CARE ORDERABLES Performing Organization Address City/[facility]/ZIP Co de Phone Number [facility] [place] [address] * HCG URINE QUAL POCT NOTIFICATION (04/21/2021 6:00 PM CDT) Only the most recent of2 resultswithin the time period is included. Comment Notification Label Only - See Separate Report 04/22/2021 8:30 AM CDT [facility] Urine URINE / Unknown 04/21/2021 6 :00 PM CDT 04/22/2021 7:19 AM CDT Vianey Cabral MD LAB - URINALYSIS ORD ERABLES Performing Organization Address [facility]/ZIP Co de Phone Number [facility] [address] [place] [address] * SARS-COV-2 (COVID-19) IN HOUSE (04/20/2021 2:18 PM CDT) COVID-19 PCR Not detected Not detected 04/20/2021 11:53 PM CDT [facility] Microbiology SPECIMEN FROM NASOPHARYNGEAL STRUCTURE / Unknown Collection / Unknown 04/20/2021 2:18 PM CDT 04/20/2021 2:18 PM CDT Narrative [facility] - 04/20/2021 11:53 PM CDT This nucleic acid amplification assay performance was validated by [facility]. This test has been authorized by the Food and Drug administration (FDA)under an Emergency Use Authorization (EUA). This test has been validated [...] LAB - MICROBIOLOGY O RDERABLES [facility] [address] [place] [address], [facility] [phone] * CT HEAD WO CONTRAST (10/01/2019 8:30 PM MANAGER FRONT) Anatomical Region Laterality Modality Head Computed Tomogra phy 10/02/2019 7:23 AM MANAGER FRONT Impressions 10/02/2019 7:25 AM MANAGER FRONT No acute intracranial CT abnormality. Reading Radiologist: Rony Zamora MD on 10/02/2019 at 7:25 AM Narrative 10/02/2019 7:25 AM MANAGER FRONT EXAMINATION: Computed tomography (CT) of the head [...] * CARDIAC EKG ORDER (02/01/2018 1:43 AM MANAGER FRONT) Only the most recent of2 resultswithin the time period is included. Narrative 02/01/2018 1:43 AM MANAGER FRONT Ordered by an unspecified provider. Scanned Document CARDIAC SERVICES ORD ERABLES * GROSS EXAM PATHOLOGY (STL) (10/06/2016 1:56 PM MANAGER FRONT) Case Report Surgical Pathology Report Case: [id number] Authorizing Provider: Orion Domingo MD Collected: 10/06/2016 01:56 PM Ordering Location: [facility] Received: 10/06/2016 02:51 PM Pathologist: Roula Garcia MD Specimen: Tonsil(s), tonsils 10/09/2016 8:13 AM [facility] Final Diagnosis GROSS DIAGNOSIS: PALATINE TONSILS. 10/09/2016 8:13 AM [facility] Clinical History The patient is a 11-year-old girl with acute adenotonsiliti s. 10/09/2016 8:13 AM [facility] Gross Description Submitted fresh [...] sections are taken. (CT/me) 10/09/2016 8:13 AM MANAGER FRONT [facility] Embedded Images 10/09/2016 8:13 AM [facility] Pathology/Cytolo gy SPECIMEN FROM TONSIL / Unknown 10/06/2016 1:56 PM MANAGER FRONT 10/06/2016 2:51 PM MANAGER FRONT Orion Domingo MD LAB - PATHOLOGY/CYTO LOGY ORDERABLES Performing Organization Address [facility] Co de Phone Number [facility] [address] [place] [address] * HCG URINE QUALITATIVE - POCT (IP) CONOR (10/06/2016 12:00 PM MANAGER FRONT) HCG Qual Urine Negative Negative [facility]CT TEST[facility] QC Verified Yes Yes [facility] PO CT TESTING Urine URINE / Unknown 10/06/2016 1 2:00 PM MANAGER FRONT Orion Domingo MD LAB - POINT OF CARE ORDERABLES Performing Organization Address [facility] de Phone Number [facility] [address] [phone] * MRI BRAIN NON CONTRAST (08/17/2016 3:04 [...] Angie Casas MD MR ORDERABLES Care Teams Building Maintenance Supervisor Relationship Specialty Start Date End Date Vianey Cabral MD [address] [place] [address] Pediatric Gastroenterology 12/06/20
--- OUTSIDE RECORDS SUMMARY | 2025-01-21 10:22 | XMS_ITS | Clinical Summary ---
Author Organization [facility] Address [facility] [place] [address] Care Team Providers Care Chair And Couch Maker Name Role Phone Unavailable Primary Care Provider [...]
--- OUTSIDE RECORDS SUMMARY | 2025-01-21 10:22 | XMS_ITS | Referral Summary ---
Author Organization [facility] Address [address] [place] [address] Care Team Providers Care Manager Wound Care Name Role Phone Vianey Cabral MD Unavailable [phone] Source Comments [facility],non-owned Affiliates and Associated Physician Practices is amultiple site organization consisting of ambulatory clinics and hospital sitesin [place], [place], [place] and [place]. This disclosure is being madepursuant to the Care Everywhere program and may not contain all information available regarding this patient. Last updated 18.[facility] Allergies No known active allergies Medications [...] month. Assessment & Plan (12/06/2020 4:27 PM GENERAL ENGINEERING TEACHER): Chronic daily headaches have been less intense [...] of Treatment Not on file Care Teams Manager Wound Care Relationship Specialty Start Date End Date Vianey Cabral MD [address] [place] [address] Pediatric Gastroenterology 12/06/20
--- OUTSIDE RECORDS SUMMARY | 2025-01-21 10:22 | XMS_ITS | Encounter Summary ---
Author Organization [facility] Address [address] [facility] [place] [address] Care Team Providers Care Plant Guide Name Role Phone Mathew Garcia MD Primary Care Provider [phone] Vianey Cabral MD Unavailable [phone] Reason for Visit * Reason Onset Date Comments Results 05/02/2021 Encounter Details Date Type Department Care Team (Late st Contact Info) Description 05/02/2021 Telephone [facility] Pediatrics - [facility] [place] [address] Vianey Cabral MD [address] [place] [address] Results Social History Tobacco Use Types Packs/Day [...] on filedocumented in this encounter Care Teams Plant Guide Relationship Specialty Start Date End Date Mathew Garcia MD [address] [place] [address] [place] [phone] PCP - General Pediatrics 02/29/16 05/06/24 Vianey Cabral MD [address] [place] [address] Pediatric Gastroenterology 12/06/20 documented as of this encounter
--- OUTSIDE RECORDS SUMMARY | 2025-01-21 10:22 | XMS_ITS | Clinical Summary ---
Author Organization [facility] Address [address] [place] [address] Care Team Providers Care Consumer Electronics Merchandiser Name Role Phone Vianey Cabral MD Unavailable [phone] Source Comments [facility],non-owned Affiliates and Associated Physician Practices is amultiple site organization consisting of ambulatory clinics and hospital sitesin [place], [place], [place] and [place]. This disclosure is being madepursuant to the Care Everywhere program and may not contain all information available regarding this patient. Last updated 18.[facility] Allergies No known active allergies Medications [...] month. Assessment & Plan (12/06/2020 4:27 PM DRAWING OPERATOR): Chronic daily headaches have been less [...] age to complete this topic Care Teams Consumer Electronics Merchandiser Relationship Specialty Start Date End Date Vianey Cabral MD [address] [place] [address] Pediatric Gastroenterology 12/06/20
== END 2025-01-21 09:27 | disposition home or self-care (01) ==
PROVIDERS: PCP Student in an Organized Health Care Education/Training Program; Visit Provider Nurse Practitioner Family
DX: K76.0 Fatty (change of) liver, not elsewhere classified (principal); R11.2 Nausea with vomiting, unspecified
CPT/HCPCS: 76705

== ENCOUNTER 2025-02-27 08:19 | Outpatient (CLI) | payer BC, SELFPAY ==
--- NOTE | ~2025-02-27 | XR_ITS ---
EXAMINATION: XR UGIAC w barium swallow DATE: 02/27/2025 09:23 INDICATION: Dysphagia TECHNIQUE: The patient drank thick barium, gas-producing crystals, and thin barium. Fluoroscopic spot radiographs of the hypopharynx, esophagus, stomach and proximal small bowel were obtained. Fluorosco py exposure time was 2.3 minutes. A total of 1385 fluoroscopic images were recorded. Total DAP was 18 .282 Gycm^2. COMPARISON: None. FINDINGS: The pharynx is symmetric and without evidence of mass lesion or mucosal irregularity. The esophagus i s normal without mass or stricture. Esophageal motility is normal. There is no hiatal hernia. There w as spontaneous reflux of gas following the double contrast portion of the examination. There was no s ubsequent gastroesophageal reflux of contrast with provocative maneuvers. The stomach and proximal sm all bowel are normal. IMPRESSION: 1. Gastroesophageal reflux of gas following the double contrast portion of the examination with no fu rther gastroesophageal reflux of contrast able to be elicited with subsequent provocative maneuvers. Otherwise normal esophagram and upper GI study. Reviewed, dictated and finalized at location A. IMPRESSION: 1. Gastroesophageal reflux of gas following the double contrast portion of the examination with no further gastroesophageal reflux of contrast able to be elic ited with subsequent provocative maneuvers. Otherwise normal esophagram and upp er GI study.
--- OUTSIDE RECORDS SUMMARY | 2025-02-27 08:26 | XMS_ITS | Encounter Summary ---
Author Organization [facility] Address [address] [place] [address] Care Team Providers Care Jackaroo Name Role Phone Mathew Garcia MD Primary Care Provider [phone] Vianey Cabral MD Unavailable [phone] Reason for Visit * Reason Onset Date Comments Results 05/02/2021 Encounter Details Date Type Department Care Team (Late st Contact Info) Description 05/02/2021 Telephone [facility] Pediatrics - [facility] [place] [address] Vianey Cabral MD [address] [place] [id number] Results Social History Tobacco Use Types Packs/Day [...] on filedocumented in this encounter Care Teams Jackaroo Relationship Specialty Start Date End Date Mathew Garcia MD [address] [place] [address] [place] [id number] PCP - General Pediatrics 02/29/16 05/06/24 Vianey Cabral MD [address] [place] [address] Pediatric Gastroenterology 12/06/20 documented as of this encounter
--- OUTSIDE RECORDS SUMMARY | 2025-02-27 08:26 | XMS_ITS | Clinical Summary ---
Author Organization [facility] Address [address] [facility] [place] [address] Care Team Providers Care Health And Wellness Manager Name Role Phone Vianey Cabral MD Unavailable [phone] Source Comments [facility],non-owned Affiliates and Associated Physician Practices is amultiple site organization consisting of ambulatory clinics and hospital sitesin [place], [place], [place]. This disclosure is being madepursuant to the Care Everywhere program and may not contain all information available regarding this patient. Last updated 18.[facility] Allergies No known active allergies Medications * [...] month. Assessment & Plan (12/06/2020 4:27 PM ON AIR HOST): Chronic daily headaches have been less intense [...] SCREENING 2019 MENINGOCOCCAL (Group B) VACC INE SHARED DECISION-MAKING (1 of 2 - Standard) 2019 HEPATITIS C SCREENING 07/01/2021 DTAP/TDAP/TD VACCINES (1 - Tdap) 2022 HEPATITIS B VACCINE (1 of 3 - 19+ 3-dose series) 2022 COVID-19 VACCINE (1 - 2023-2 5 season) 2024 DEPRESSION SCREENING 11/26/2024 INFLUENZA VACCINE (Season Ended) 2025 ZOSTER VACCINE (1 of 2) 2053 HIB VACCINE Aged Out No longer eligi ble based on patient's age to complete this topic MENINGOCOCCAL GROUPS A/C/Y/W VACCINE Aged Out No longer eligible b ased on patient's age to complete this topic PNEUMOCOCCAL VACCINE Aged Out No long er eligible based on patient's age to complete this topic Care Teams Health And Wellness Manager Relationship Specialty Start Date End Date Vianey Cabral MD [address] [place] [address] Pediatric Gastroenterology 12/06/20
--- OUTSIDE RECORDS SUMMARY | 2025-02-27 08:26 | XMS_ITS | Clinical Summary ---
Author Organization [facility] Address [facility] [place] [address] Care Team Providers Care Dough Braker Name Role Phone Unavailable Primary Care Provider [...] - 19+ 3-dose series) 2022 COVID-19 Vaccine (1 - 2023-2 5 season) 2024 Meningococcal Vaccine Aged Out No sorin [...]
== END 2025-02-27 08:20 | disposition home or self-care (01) ==
PROVIDERS: PCP Family Medicine; Visit Provider Nurse Practitioner Family
DX: K21.9 Gastro-esophageal reflux disease without esophagitis (principal); R13.10 Dysphagia, unspecified
CPT/HCPCS: 74246

== ENCOUNTER 2025-08-26 08:41 | Outpatient (CLI) | payer BC, SELFPAY ==
--- NOTE | 2025-08-26 08:45 | EST_ITS ---
Patient Info Name: Namita Reyes Age: 20 years : 2005 Gender: Female Ht: 67 in Wt: 230 lbs BSA: 2.26 m2 HR: 91 bpm BP: 157 / 87 mmHg Exam Date: 08/26/2025 8:45 AM Patient Status: O Admit Date: 08/26/2025 Exam Type: CA stress test treadmill A treadmill exercise stress test was performed. Staff Attending Provider: Hunter Howell DO Exercise Technologist: Janine Gr Exercise Physician: Hunter Howell DO Summary 1. 1. Negative Isaac exercise stress test for ischemic ST changes by ECG criteria. 2. 2. Reduced functional capacity, achieving 7 METs of workload. 3. 3. Baseline hypertension. 4. 4. Appropriate HR response to exercise. 5. 5. Appropriate HR recovery at 1 minute post exercise. 6. 6. No imaging with stress testing. 7. 7. Patient informed of the above results. Protocol: Isaac Stress ECG Details Stage: REST Duration (min): 4 min : 22 sec Speed (mph): 0.0 Grade (%): 0 HR (bpm): 90 SBP (mmHg): 157 DBP (mmHg): 87 METS: --- Stage: REST Duration (min): 5 min : 4 sec Speed (mph): 0.0 Grade (%): 0 HR (bpm): 109 SBP (mmHg): 157 DBP (mmHg): 87 METS: --- Stage: STAGE 1 Duration (min): 1 min : 0 sec Speed (mph): 1.7 Grade (%): 10 HR (bpm): 129 SBP (mmHg): 157 DBP (mmHg): 87 METS: --- Stage: STAGE 1 Duration (min): 2 min : 0 sec Speed (mph): 1.7 Grade (%): 10 HR (bpm): 142 SBP (mmHg): 157 DBP (mmHg): 87 METS: --- Stage: STAGE 1 Duration (min): 3 min : 0 sec Speed (mph): 1.7 Grade (%): 10 HR (bpm): 135 SBP (mmHg): 193 DBP (mmHg): 91 METS: --- Stage: STAGE 2 Duration (min): 1 min : 0 sec Speed (mph): 2.5 Grade (%): 12 HR (bpm): 167 SBP (mmHg): 193 DBP (mmHg): 91 METS: --- Stage: STAGE 2 Duration (min): 2 min : 0 sec Speed (mph): 2.5 Grade (%): 12 HR (bpm): 163 SBP (mmHg): 197 DBP (mmHg): 91 METS: --- Stage: STAGE 2 Duration (min): 2 min : 0 sec Speed (mph): 2.5 Grade (%): 12 HR (bpm): 162 SBP (mmHg): 197 DBP (mmHg): 91 METS: --- Stage: RECOVERY Duration (min): 0 min : 59 sec Speed (mph): 0.0 Grade (%): 0 HR (bpm): 131 SBP (mmHg): 197 DBP (mmHg): 91 METS: --- Stage: RECOVERY Duration (min): 1 min : 59 sec Speed (mph): 0.0 Grade (%): 0 HR (bpm): 105 SBP (mmHg): 197 DBP (mmHg): 91 METS: --- Stage: RECOVERY Duration (min): 2 min : 59 sec Speed (mph): 0.0 Grade (%): 0 HR (bpm): 114 SBP (mmHg): 160 DBP (mmHg): 89 METS: --- Stage: RECOVERY Duration (min): 3 min : 59 sec Speed (mph): 0.0 Grade (%): 0 HR (bpm): 104 SBP (mmHg): 160 DBP (mmHg): 89 METS: --- Stage: RECOVERY Duration (min): 4 min : 59 sec Speed (mph): 0.0 Grade (%): 0 HR (bpm): 102 SBP (mmHg): 146 DBP (mmHg): 91 METS: --- Stage: RECOVERY Duration (min): 5 min : 4 sec Speed (mph): 0.0 Grade (%): 0 HR (bpm): 103 SBP (mmHg): 146 DBP (mmHg): 91 METS: --- Rest HR: 109 bpm Peak HR: 171 bpm Rest Sys BP: 157 mmHg Peak Sys BP: 197 mmHg Max Pred HR: 198 bpm % Max Pred HR: 86 % Target HR: 168 bpm Max RPP: 33,687 bpm*mmHg Vang Score: 1 Termination Reason: Reached target heart rate or workload Cardiac Symptoms: Shortness of breath Max ST Seg Deviation: -0.90 mm Total Time: 5 min : 0 sec Rest Peña BP: 87 mmHg Peak Peña BP: 91 mmHg Angina Score: None Total METS: 7.1 Resting ECG Sinus tachycardia. Stress ECG No ST changes. Arrhythmias None. Report Signatures
--- OUTSIDE RECORDS SUMMARY | 2025-08-26 08:56 | XMS_ITS | Clinical Summary ---
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 This disclosure is being madepursuant to the Care Everywhere program and may not contain all information available regarding this patient. Last updated 18.[facility] Allergies No known active allergies Medications * Be aware that medications may not be up to date on this document. Alwaysverify current medications with the patient. Multiple Vitamin (MULTI VITAMIN DAILY PO) Active melatonin 5 MG tablet Take 10 mg by mouth at bedtime Active LORYNA 3-0.02 MG tablet TK 1 T PO QD CONTINUOUSLY 0 9 Active venlafaxine XR 24hr (EFFEXOR XR) 75 MG capsule 150 mg 0 Active ibuprofen (MOTRIN) 200 MG tablet Take 800 mg by mouth every 6 hours as needed for Pain Active docusate sodium (COLACE) 100 MG capsuleIndicati ons:Abdominal pain, generalized Take 1 capsule by mouth 2 times daily as needed for Constipation 60 capsule 3 1 Active omeprazole (PRILOSEC) 40 MG capsule Take 1 (one) capsule by mouth once daily 30 capsule 3 1 Active ondansetron (ZOFRAN) 4 MG tablet Take 1 (one) tablet by mouth every 6 hours as needed for Nausea/Vomiting 30 tablet 3 1 Active Active Problems Problem Noted Date Diagnosed [...] month. Assessment & Plan (12/06/2020 4:27 PM DIRECTOR HUMAN SERVICES): Chronic daily headaches have been less intense [...] of Binge Drinking Not on file 11/26 Comments No Sex and Gender Information Value Date Recorded Sex Assigned at Female 06/14/2021 11:35 AM CDT Legal Sex Female 5:43 AM DIRECTOR HUMAN SERVICES Gender Identity Female 06/14/2021 11:35 AM CDT [...] 10:47 AM CDT Height 167 cm (5' 5.75) 04/22/2021 8:00 AM CDT Body Mass Index - - Plan of Treatment Health Maintenance Due Date Last Done Comments HIV SCREENING 2018 HPV VACCINE (1 - 3-dose series) 2018 CHLAMYDIA/GONORRHEA SCREENING 2019 MENINGOCOCCAL (Group B) VACC INE SHARED DECISION-MAKING (1 of 2 - Standard) 2019 HEPATITIS C SCREENING 07/01/2021 DTAP/TDAP/TD VACCINES (1 - Tdap) 2022 HEPATITIS B VACCINE (1 of 3 - 19+ 3-dose series) 2022 DEPRESSION SCREENING 11/26/2024 COVID-19 VACCINE (1 - 2023-2 5 season) 2025 INFLUENZA VACCINE (#1) 2025 ZOSTER VACCINE (1 of 2) 2053 HIB VACCINE Aged Out No longer eligi ble based on patient's age to complete this topic MENINGOCOCCAL GROUPS A/C/Y/W VACCINE Aged Out No longer eligible b ased on patient's age to complete this topic PNEUMOCOCCAL VACCINE Aged Out No long er eligible based on patient's age to complete this topic Insurance ELIZABETH ANTHEM Care 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
--- OUTSIDE RECORDS SUMMARY | 2025-08-26 08:57 | XMS_ITS | Clinical Summary ---
Author Organization [facility] Address [facility] [place] [address] Care Team Providers Care Agricultural Pilot Name Role Phone Unavailable Primary Care Provider [...] COVID-19 Vaccine (1 - 2023-2 5 season) 2025 Meningococcal Vaccine Aged Out No sorin mariela eligible based on patient's age to complete this topic Pneumococcal Vaccine: Pediat rics (0 to 5 Years) and At-Risk Patients (6 to 49 Years) Aged Out No longer eligible b ased on patient's age to complete this topic RSV Immunizations Under 20 Months Aged Out No longer eligible based on patient's age to complete this topic
--- OUTSIDE RECORDS SUMMARY | 2025-08-26 08:57 | XMS_ITS | Encounter Summary ---
Author Organization [facility] Address [address] [facility] [place] [address] Care Team Providers Care It Architecture Analyst Name Role Phone Mathew Garcia MD Primary Care Provider [phone] Vianey Cabral MD Unavailable [phone] Reason for Visit * Reason Onset Date Comments Results 05/02/2021 Encounter Details Date Type Department Care Team (Late st Contact Info) Description 05/02/2021 Telephone 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 Answer Date of Assessment Author No 04/22/2021 9:25 AM CDT Harper RN * Is person blind or have serious difficulty seeing? Answer Date of Assessment Author No 04/22/2021 9:25 AM CDT Harper RN * Does person have serious difficulty walking/climbing stairs? Answer Date of Assessment Author No 04/22/2021 9:25 AM CDT Harper RN * Does person have difficulty dressing/bathing? Answer Date of Assessment Author No 04/22/2021 9:25 AM AUBREYT Harper RN * Does person have difficulty doing errands alone? Answer Date of Assessment Author Yes 04/22/2021 9:25 AM Woods RN documented as of this encounter Mental Status * Does person have difficulty concentrating/remembering/making decisions? Answer Entry Date Author No 04/22/2021 9:25 AM Woods RN documented in this encounter Miscellaneous Notes * [...] on filedocumented in this encounter Care Teams It Architecture Analyst Relationship Specialty Start Date End Date Mathew Garcia MD [address] [place] [id number] PCP - General Pediatrics 02/29/16 05/06/24 Vianey Cabral MD [address] [place] [address] Pediatric Gastroenterology 12/06/20 documented as of this encounter
== END 2025-08-26 08:42 | disposition home or self-care (01) ==
LOC: ANHCARD 08:43
PROVIDERS: PCP Student in an Organized Health Care Education/Training Program; Visit Provider Internal Medicine Cardiovascular Disease
DX: R07.9 Chest pain, unspecified (principal)
CPT/HCPCS: 93017